=== PATIENT | female | born 1970 | race Caucasian/White ===

== ENCOUNTER 2019-12-18 19:14 | Emergency (ER) | payer MEDICARE, MEDICAID, SELFPAY ==
--- NOTE | 2019-12-18 19:19 | W.ED.GENAD ---
Discharge Plan Disposition Patient Disposition: HOME Condition: Good Discharge Details Chief Complaint: Orthopedic Clinical Impression: Acute knee pain Primary Care Provider: None,None ED Provider: Ayesha Snell Home Meds and New Rx's Prescriptions: No Action No Known Home Meds RF: 0 Discharge Instructions Instructions: Knee Pain (ED) Additional Instructions: Encourage rest, ice, elevation. Tylenol and/or ibuprofen as needed for discomfort. Your exam and history is most concerning for meniscal injury and you will need follow-up with orthopedics. Please call orthopedics on Saturday to schedule follow-up appointment. If he develop new or worsening symptoms please seek care urgently once again. Please continue with hinged knee brace to help with discomfort until evaluated by orthopedics. Referrals: eMd Valdez MD [ [facility] STAFF PHYSICIAN] - Medical Decision Making Patient is a pleasant 49-year-old female presents today with chief complaint of right knee pain. She reports that she has had pain like this historically. She reports that she had surgical intervention as a teenager. She reports that since that time, she has had intermittent catching and locking, particularly after squatting down. Indicates the anterior lateral aspect of the knee is area of discomfort. She reports that [place] when she scratched down and had sudden onset of discomfort. Since that time, she reports having difficulty with extension. She reports it has gotten better since the initial start. States that at times it can be difficult for her to ambulate on this secondary to the catching and locking. She denies any fall. Did not strike the knee. Denies other injury at the time of the incident. On exam, patient is resting comfortably. Exam the right lower extremity reveals normal-appearing joints. She does have limited range of motion of the right knee. She is lacking approximate 10 degrees of full extension, flexion is limited to approximate 65 degrees making Nicolas exam difficult. She is ligamentously intact without discomfort or laxity. She does have pain with palpation of the joint line of the anterior lateral aspect of the knee. She does have pain with axial loading with rotation in this area. History and exam is most concerning for meniscal injury. However, given the acute onset of discomfort and chronic problems, will obtain imaging. Will give Tylenol and ibuprofen for discomfort. FINDINGS: Bones/joints: Normal. Bony alignment is anatomic. No evidence for significant joint effusion. Soft tissues: Normal. IMPRESSION: No evidence for acute abnormality. Findings on the x-ray do correlate with my clinical exam. Her exam and history is most concerning for a lateral meniscal injury. Encourage rest, ice, elevation. Tylenol and ibuprofen as needed for discomfort. Advise follow-up with orthopedics, patient was given contact information. I advised hinged knee brace to help with discomfort and ensure stability. She was given return precautions. She will contact orthopedics on Saturday to schedule follow-up appointment. All of his questions and concerns were addressed and is in agreement this plan. HPI General Mode of arrival: ambulatory. Date/Time Provider Initiated Documentation: 12/18/19 19:19. Limitations to Documentation: no limitations. Information obtained by: patient and RN notes reviewed. History of Present Illness 49 year old F presents to the emergency department with the chief complaint of right knee pain, described as moderate, with intensity rated at 7. Quality is described as aching, and is localized to the right and lower extremity. Patient reports no radiation. Patient started experiencing this hour(s) (1) and it has been constant. Immobilization improves symptom(s), Movement worsens symptoms . Patient notes no other symptoms.. Patient did receive the following treatments prior to arrival, none Related Data Home Medications Medication Instructions Recorded Confirmed Unknown [No Known Home Meds] 12/18/19 12/18/19 Allergies Allergy/AdvReac Type Severity Reaction Status Date / Time No Known Allergies Allergy Unverified 12/18/19 19:24 Review of Systems Constitutional Constitutional: Reports as per HPI, Denies chills, Denies fever(s), Denies headache(s) and Denies weakness ENT Ears, Nose, Mouth, and Throat: Denies headache(s) Cardiovascular Cardiovascular: Reports as per HPI Respiratory Respiratory: Reports as per HPI and Denies cough Musculoskeletal Musculoskeletal: Reports as per HPI and Denies tingling Integumentary/Breasts Skin/Breast: Reports as per HPI, Denies rash and Denies wounds Neurologic Neurologic: Reports as per HPI, Denies headache(s), Denies tingling, Denies paresthesias and Denies weakness Exam Const General: cooperative, healthy appearing, comfortable, no acute distress, well developed and disheveled Nutritional Appearance: well nourished and overweight Orientation: alert and awake Resp Effort & Inspection: normal respiratory effort, able to speak in complete sentences and no respiratory distress Cardio Rate: regular rate Rhythm: regular rhythm Skin General skin exam: no rashes or lesions noted Lesions: no lesions Rashes: no rashes Trauma: no lacerations or abrasions Neuro General: patient alert and patient awake Cognition: normal cognition Speech: speech normal Gait: normal gait Motor: muscle tone normal throughout Sensory Exam: no sensory deficits noted Extrem Right lower extremity: normal to inspection, normal capillary refill, no joint enlargement, hip/thigh Details: normal to inspection and normal ROM; no tenderness and no swelling, knee Details: normal to inspection, tenderness Location: of the lateral joint line, knee ligament exam normal Details: anterior drawer test normal, posterior drawer test normal, valgus stress test normal, varus stress test normal and pain with axial loading and Nicolas's Test (Unable to perform secondary to discomfort); no swelling, ROM abnormal (Approximately 10 degrees of full extension, flexion to 65), no ecchymosis, no crepitus, no foreign bodies, no penetrating wound, no deformity and no unusual warmth, lower leg Details: normal to inspection and no edema; no erythema, no tenderness, no localized swelling and no palpable cords, ankle Details: normal to inspection and foot Details: normal capillary refill, normal to inspection and toes with normal ROM; no tenderness; ROM limited and no edema Psych Appearance: grossly normal and well kempt Mental Status: mental status grossly normal Speech and Movement: speech and movement normal
[2019-12-18 19:21] VITALS: BP 134/81; PULSE 93; RESP 20; TEMP 36.8; O2SAT 98
[2019-12-18] MEDS: Ibuprofen 600 MG TAB PO (19:45)
[2019-12-18] MEDS: Acetaminophen 500 MG TAB 1000 MG PO (19:45)
--- NOTE | 2019-12-18 20:00 | DI.RAD_ITS ---
EXAM: XR KNEE RT 4V AP,LAT,CARLOS,PAT CLINICAL HISTORY: lateral pain. TECHNIQUE: 2D digital imaging was performed. COMPARISON: No exams were available for comparison FINDINGS: BONES: No acute fracture is present. No bony destructive lesion is seen. JOINTS: The knee is normally aligned. No joint effusion is seen. SOFT TISSUE: Normal. IMPRESSION: Unremarkable radiographs of the right knee. DATA REPOSITORY: RADIATION DOSE DELIVERED:
--- NOTE | 2019-12-18 20:12 | DI.VRAD_ITS ---
PROCEDURE INFORMATION: Exam: XR Left Knee Exam date and time: 12/18/2019 7:53 PM Age: 49 years old Clinical indication: Pain; Knee; Right; Additional info: Patient states she bent over and when she stood back up felt severe knee pain. Unable to bear weight. TECHNIQUE: Imaging protocol: XR Left knee. Views: 4 or more views. COMPARISON: No relevant prior studies available. FINDINGS: Bones/joints: Normal. Bony alignment is anatomic. No evidence for significant joint effusion. Soft tissues: Normal. IMPRESSION: No evidence for acute abnormality. COMMENTS: Preliminary interpretation is based on receipt of 4 image(s). A final report will be issued subsequently. Dictated and Authenticated by: Martha Petersen MD. Ordering:JENNIFER Hodge MD
== END 2019-12-18 20:40 | disposition home or self-care (01) ==
PROVIDERS: Emergency Provider Physician Assistant
DX: M25.561 Pain in right knee (principal); X50.9XXA Other and unspecified overexertion or strenuous movements or postures, initial encounter
CPT/HCPCS: 29505; 99283; 73564; L1810

== ENCOUNTER 2020-01-06 09:12 | Outpatient (CLI) | payer MEDICARE, MEDICAID, SELFPAY ==
--- NOTE | 2020-01-06 08:45 | DI.RAD_ITS ---
EXAM: XR HIP PELVIS ADULT BL CLINICAL HISTORY: bilateral hip with pelvis TECHNIQUE: COMPARISON: No exams were available for comparison FINDINGS: Three views were obtained. There is soft tissue calcification adjacent to the superior aspect of the greater trochanter on the left which may represent peritendinitis or bursitis, please correlate clin ically. The cartilaginous joint spaces of both hips appear fairly well maintained. No significant bony abnor mality seen IMPRESSION:
== END 2020-01-06 09:32 ==
PROVIDERS: Referring Provider Physician Assistant; Visit Provider Student in an Organized Health Care Education/Training Program
DX: M25.552 Pain in left hip (principal); M70.72 Other bursitis of hip, left hip; S83.206A Unspecified tear of unspecified meniscus, current injury, right knee, initial encounter; X58.XXXA Exposure to other specified factors, initial encounter; E88.89 Other specified metabolic disorders; M22.41 Chondromalacia patellae, right knee
CPT/HCPCS: 73521; 99204; 99215

== ENCOUNTER 2020-01-08 03:43 | Outpatient (CLI) | payer MEDICARE, MEDICAID, SELFPAY ==
--- NOTE | 2020-01-08 10:45 | DI.MRI_ITS ---
EXAM: MR LOWER JOINT RT WO CLINICAL HISTORY: 30 years knee pain instability E88.89 METABOLIC DISORDER, S83.206A TEAR TECHNIQUE: Multiplanar multisequence MRI was performed.. COMPARISON: No exams were available for comparison FINDINGS: MR examination of the knee was performed according to the usual protocol. There is no significant bon y signal abnormality seen. The articular cartilage of the medial and lateral tibiofemoral joints appears within normal limits. Note is made of minimal signal change at the patellar apex, associated with overlying signal abnormal ity of the articular cartilage with slight surface irregularity of the cartilage. Trochlear cartilag e also shows mild surface irregularity period. No retinacular injury. Hoffa fat pad is unremarkable. Cruciate ligaments appear intact. Menisci and attachments appear normal with no evidence of tear. No collateral ligament injury or posterolateral corner abnormality seen. IMPRESSION: Mild articular cartilage changes of the patellofemoral joint particularly at the patellar apex. No e vidence of internal derangement. DATA REPOSITORY:
== END 2020-01-08 04:03 ==
PROVIDERS: Visit Provider Student in an Organized Health Care Education/Training Program
DX: M25.561 Pain in right knee (principal); M22.8X1 Other disorders of patella, right knee
CPT/HCPCS: 73721

== ENCOUNTER → 2020-01-19 13:37 | Outpatient (BNVA) | payer MEDICARE, MEDICAID, SELFPAY | PROVIDERS: Visit Provider Student in an Organized Health Care Education/Training Program | DX: M22.41 Chondromalacia patellae, right knee (principal); S83.206D Unspecified tear of unspecified meniscus, current injury, right knee, subsequent encounter; X58.XXXD Exposure to other specified factors, subsequent encounter; E88.89 Other specified metabolic disorders | CPT/HCPCS: 20610; 99214; J1030 ==

== ENCOUNTER → 2020-04-19 09:57 | Outpatient (BNVA) | payer MEDICARE, MEDICAID, SELFPAY | PROVIDERS: Visit Provider Student in an Organized Health Care Education/Training Program | DX: M22.41 Chondromalacia patellae, right knee (principal); M23.91 Unspecified internal derangement of right knee; S83.20 Tear of unspecified meniscus, current injury; E88.89 Other specified metabolic disorders | CPT/HCPCS: 99214 ==

== ENCOUNTER 2020-05-10 02:23 | Outpatient (CLI) | payer MEDICARE, MEDICAID, SELFPAY ==
[2020-05-12 12:39] LABS: Cotinine <3.0 ng/mL (<3.0); Nicotine <3.0 ng/mL (<3.0)
== END 2020-05-10 02:43 ==
PROVIDERS: Student in an Organized Health Care Education/Training Program; Visit Provider Audiologist
DX: M22.41 Chondromalacia patellae, right knee (principal)
CPT/HCPCS: 36415; 80323; U0003

== ENCOUNTER 2020-05-10 07:55 | Outpatient (CLI) | payer MEDICARE, MEDICAID, SELFPAY ==
[2020-05-14 13:18] LABS: COVID-19 RT-PCR Result Negative
== END 2020-05-10 08:15 ==
PROVIDERS: Visit Provider Student in an Organized Health Care Education/Training Program
DX: Z11.59 Encounter for screening for other viral diseases (principal); Z01.818 Encounter for other preprocedural examination; M22.41 Chondromalacia patellae, right knee
CPT/HCPCS: U0003

== ENCOUNTER 2020-05-13 06:15 | Day surgery (SDC) | payer MEDICARE, MEDICAID, SELFPAY ==
[2020-05-13] VITALS (8 sets, daily range): BP systolic 100–115; BP diastolic 47–60; PULSE 66–87; RESP 10–22; TEMP 36.5–36.6; O2SAT 95–99
[2020-05-13] MEDS: Lactated Ringers 1,000 ML 100 ML IV ×2 (06:57→08:13)
[2020-05-13] MEDS: ceFAZolin 2 GM/50 ML BAG IVPB (07:29)
[2020-05-13] MEDS: Bupivacaine 0.25% Pres-Free 30 ML VIAL (08:14)
[2020-05-13] MEDS: EPINEPHrine 30 MG/30 ML VIAL (08:15)
[2020-05-13] MEDS: fentaNYL 100 MCG/2 ML VIAL IVP ×2 (09:03→09:13)
--- NOTE | 2020-05-13 09:47 | W.PM.DSUDISC ---
Discharge Plan Disposition Patient Disposition: HOME Condition: Stable Discharge Details Reason For Visit: Right knee surgery Attending Provider: Venkata Mercado Primary Care Provider: None,None Home Meds and New Rx's Prescriptions: New aspirin 81 mg tablet,delayed release (DR/EC) 81 mg PO DAILY 14 Days Qty: 14 RF: 0 naproxen 250 mg tablet 250 - 500 mg PO BID PRN (Reason: Moderate pain or swelling) Qty: 60 RF: 0 oxycodone 5 mg tablet 5 - 10 mg PO Q4H PRN (Reason: moderate to severe pain) Qty: 9 RF: 0 Discharge Instructions Additional Instructions: Surgery: Right knee arthroscopy with partial lateral meniscectomy, synovectomy, and chondroplasty Activity: Advance to weightbearing as tolerated. Gradually increase range of motion to full. It is important to restore full knee extension?do not rest with pillows behind knee to prevent knee getting stuck bent. A physical therapy prescription will be provided separately in the office at follow-up if needed. Prescriptions: Aspirin 81 mg take 1 daily to prevent a blood clot for 2 weeks Naproxen 250 mg take 1-2 every 12 hours with a meal as needed for moderate pain Oxycodone 5 mg take 1-2 every 4-6 hours as needed for severe pain You may use [id number] Tylenol (acetaminophen) as needed for mild pain. These pain medications may be taken all at once or in different combinations as needed. Also, recommend Colace (docusate) as a stool softener as surgery and pain medicine cause constipation. Dressings: Leave dressing in place for 2-3 days. May then remove and leave Steri-Strips open to air or cover with Band-Aids. May shower after 5 days. Follow-up: 10-[address] Mercado Let us know right away if you develop any redness, drainage, fevers, chest pain, or trouble breathing. Do not drink alcohol or drive for at least 24 hours after anesthesia. Please call the office during business hours with any questions or concerns. Referrals: Venkata Mercado MD [ [facility] STAFF PHYSICIAN] - Discharge Orders Discharge Orders: Discharge Order (Routine); Ordered 05/13/20 Ordered By: Venkata Mercado DS: Diagnosis Discharge Diagnosis (1) Tear of cartilage of right knee: Status: Acute (2) Hoffa's fat pad disease: Status: Acute (3) Chondromalacia patellae of right knee: Status: Acute (4) Plica of knee: Status: Acute (5) Lateral meniscal tear: Status: Acute
--- NOTE | 2020-05-13 09:57 | ROE_ITS ---
Date of service: 05/13/20 Time of Service: 09:47 Operative Note Operative Note DATE OF PROCEDURE: 05/13/20 PRE-OP DIAGNOSIS: Right knee 1. Chondromalacia patella 2. Right knee cartilage lesion 3. Right knee Hoffa's fat pad syndrome POST-OP DIAGNOSIS: other Right knee 1. Chondromalacia patella 2. Cartilage lesion undersurface patella 3. Hoffa's fat pad syndrome 4. Lateral gutter plica 5. Posterior horn lateral meniscus tear PROCEDURE: Right knee: 1. Partial lateral meniscectomy, CPT #54309 2. Synovectomy greater than 2 compartments, CPT #77629: Anteromedial, anterolateral, lateral gutter, and patellofemoral 3. Chondroplasty, CPT #88571: Undersurface patella SURGEON: Venkata Mercado SUBSTATION DESIGN DRAFTSPERSON: Megha Herring ANESTHESIA: GETA and local ESTIMATED BLOOD LOSS: 3 PATHOLOGY: none sent TOURNIQUET TIME: 0 COMPLICATIONS: None Patient was transported to: PACU Patient's condition: stable Implants: None Indications: Please see complete medical record for details. Findings: Central to central superior undersurface patella grade 2-3 almost 1 x 1 cm partial thickness cartilage lesion. Intact trochlear cartilage. Intact lateral and femoral compartment articular surfaces. Intact medial meniscus, ACL, and PCL. Largely intact lateral meniscus with small amount of fraying tearing of the posterior horn. Lateral gutter plica. Procedure Description: In the operating room, general anesthesia was induced. The patient was positioned supine on the operating room table. All bony prominences were well-padded. Preoperative antibiotics were administered. The right knee was prepped and draped in the usual sterile fashion. The correct patient, procedure, and side of the procedure were all verified prior to incision. 10 cc of 0.5% bupivacaine containing epinephrine was infiltrated about the anterior medial and anterior lateral knee arthroscopy portals. The portals were established and a complete diagnostic arthroscopy was performed with relevant findings detailed above. Mechanical shaver was used to perform a synovectomy of the anteromedial, anterolateral compartments removing pathologic synovium. In the [id number] position lateral meniscus tear was then shaved to a stable margin at the posterior horn. Synovectomy was then proceeded in extension of the patellofemoral space of engaging synovitis about the cartilage lesion. Mechanical shaver was then used to smooth and perform a limited chondroplasty of fibrillations with some partial-thickness fissures of the undersurface patella cartilage lesion. Attention was then turned to the lateral gutter and the mechanical shaver was used to complete removal of the plical band. Under direct arthroscopic visualization an 18-gauge needle was passed into the knee from superior lateral. The knee was copiously irrigated with arthroscopic fluid for being drained of all fluid. The anteromedial anterolateral portals were closed in 3-0 Monocryl in a buried interrupted fashion. Mastisol, Steri-Strips, dry 4 x 4 gauze, and sterile soft roll wrapped about the knee. Prior to applying the dressing 20 cc of 0.25% bupivacaine containing 4 mg of morphine was infiltrated into the knee for postoperative analgesia. The right lower extremity was then wrapped in a gentle compressive Sushil bandage. The patient awoke from anesthesia without complication and was transferred to the recovery room in a stable condition.
== END 2020-05-13 10:21 | disposition home or self-care (01) ==
PROVIDERS: Visit Provider Student in an Organized Health Care Education/Training Program
PROC: (CPT 29870; principal; 2020-05-13 07:30)
DX: M22.41 Chondromalacia patellae, right knee (principal); M23.251 Derangement of posterior horn of lateral meniscus due to old tear or injury, right knee
CPT/HCPCS: 29876; 29881; J0690; J1100; J1885; J2001; J2250; J2405; J2704; J3010

== ENCOUNTER → 2020-05-24 10:26 | Outpatient (BNVA) | payer MEDICARE, MEDICAID, SELFPAY | PROVIDERS: Visit Provider Student in an Organized Health Care Education/Training Program | DX: Z47.89 Encounter for other orthopedic aftercare (principal); M23.200 Derangement of unspecified lateral meniscus due to old tear or injury, right knee; M67.51 Plica syndrome, right knee; E88.89 Other specified metabolic disorders ==

== ENCOUNTER → 2020-08-09 09:53 | Outpatient (BNVA) | payer MEDICARE, MEDICAID, SELFPAY | PROVIDERS: Visit Provider Student in an Organized Health Care Education/Training Program | DX: R69 Illness, unspecified (principal) ==

== ENCOUNTER → 2020-09-21 16:05 | Outpatient (BNVA) | payer MEDICARE, MEDICAID, SELFPAY | PROVIDERS: Visit Provider Student in an Organized Health Care Education/Training Program | DX: R69 Illness, unspecified (principal) ==

== ENCOUNTER → 2020-11-16 07:55 | Outpatient (BNVA) | payer MEDICARE, MEDICAID, SELFPAY | PROVIDERS: Visit Provider Student in an Organized Health Care Education/Training Program | DX: Z47.89 Encounter for other orthopedic aftercare (principal); M79.18 Myalgia, other site; M23.206 Derangement of unspecified meniscus due to old tear or injury, right knee | CPT/HCPCS: 99214 ==

== ENCOUNTER 2020-12-14 19:17 | Emergency (ER) | payer MEDICARE, MEDICAID, SELFPAY ==
[2020-12-14 19:28] VITALS: BP 107/59; PULSE 83; RESP 18; TEMP 37; O2SAT 96
--- NOTE | 2020-12-14 20:30 | DI.RAD_ITS ---
Exam(s) XR KNEE RT 3V AP,LAT,CARLOS EXAM: XR KNEE RT 3V AP,LAT,CARLOS CLINICAL HISTORY: R knee pain, r/o fx, effusion. TECHNIQUE: 2D digital imaging was performed. COMPARISON: CR,XR XR KNEE RT 4V AP,LAT,CARLOS,PAT from 12/18/2019 FINDINGS: BONES: No acute fracture is present. No bony destructive lesion is seen. JOINTS: The knee is normally aligned. No joint effusion is seen. SOFT TISSUE: Normal. IMPRESSION: Unremarkable radiographs of the right knee. DATA REPOSITORY: RADIATION DOSE DELIVERED:
--- NOTE | 2020-12-14 20:36 | W.ED.GENAD ---
Discharge Plan Disposition Patient Disposition: HOME Condition: Stable Discharge Details Clinical Impression: Right knee pain Primary Care Provider: None,None ED Provider: Yu Cam Home Meds and New Rx's Prescriptions: No Action No Known Home Meds RF: 0 Discharge Instructions Instructions: Knee Pain (ED) Additional Instructions: Rest, ice, and elevate the affected area as much as possible. Alternate tylenol and motrin as needed and directed for pain. Call Dr. Mercado's office tomorrow to schedule a follow-up appointment for reevaluation in the next week. Return immediately to the emergency department if you develop any worsening or new concerning symptoms. Referrals: Venkata Mercado MD [ [facility] STAFF PHYSICIAN] - Discharge Data Discharge Physician: Yu Cam Medical Decision Making 50-year-old female with a history of right knee arthroscopy with partial lateral meniscectomy, extensive synovectomy, and patella chondroplasty presents for right knee pain after sitting in [place] sitting in [place] style and standing up last night. She states she is unable to fully straighten her knee due to significant pain. Review of orthopedic notes from 11/16/20 note that patient was diagnosed with localized amplified musculoskeletal pain syndrome and referred to physical therapy and was noted to have pain out of proportion to exam. Patient is crying throughout exam. Her right knee appears normal to inspection without evidence of trauma, cellulitis or effusion. She has no pain with palpation. She has unable to fully extend the knee due to pain. Limited ligamentous exam due to pain but no obvious laxity. She has neurovascular intact. She was referred for right knee x-ray and given a dose of oxycodone. X-ray negative for acute findings. Patient reassessed and still complaining of right knee pain but feels good to go home. She is unable to fully extend due to pain. Will give one oxycodone to go for overnight tonight. She is advised to take Tylenol every 4 hours and ibuprofen every 6 hours for pain. An Sushil wrap was placed and she was given crutches as well as a hinged knee brace to go. Discussed that she likely will need to put her leg in extension to place a hinged knee. Advised to call Dr. Mercado's office tomorrow to schedule follow-up appointment for reevaluation for consideration for cortisone injection. Medical Records Medical records reviewed: Yes I reviewed the patient's medical records. Imaging Data Radiologic Study: Radiologist's impression: XR Right Knee Exam date and time: 12/14/2020 8:44 PM Age: 50 years old Clinical indication: Pain; Right; Patient HX: PT states her knee popped yesterday and she has been unable to bear weight or straighten it since TECHNIQUE: Imaging protocol: XR Right knee. Views: 3 views. COMPARISON: No relevant prior studies available. FINDINGS: Bones/joints: Normal. Soft tissues: Normal. IMPRESSION: No acute findings. HPI General Mode of arrival: wheelchair. Date/Time Provider Initiated Documentation: 12/14/20 19:53. Limitations to Documentation: no limitations. Information obtained by: patient. HPI Narrative: Patient is a 50-year-old female with a partial lateral meniscectomy, extensive synovectomy, and patella chondroplasty in April 2020 presents for right knee pain since standing up from sitting in [place] style last night. She states she has been unable to fully extend her knee due to pain. She states she has been unable to walk or weight-bear on her leg due to pain. She took Tylenol for pain today without relief. She states she can take ibuprofen. Patient states she is mainly here for pain medicine to get her through the night. She states I know nothing is broken. Related Data Home Medications Medication Instructions Recorded Confirmed Unknown [No Known Home Meds] 11/16/20 12/14/20 Allergies Allergy/AdvReac Type Severity Reaction Status Date / Time No Known Allergies Allergy Verified 12/14/20 19:33 General Stated Complaint: Orthopedic MARLENI: 4 Review of Systems All systems reviewed & are unremarkable except as noted in HPI and below [facility] Medical History (Updated 12/14/20 @ 22:01 by Yu Cam DO) Lateral meniscal tear Surgical History (Updated 05/13/20 @ 06:30 by Anabel Kellogg, VIRIDIANA) History of carpal tunnel release of both wrists History of cholecystectomy History of hysterectomy History of right knee surgery History of shoulder surgery L shoulder impingment surgery Social History Smoking/Tobacco Use Status: Former Tobacco Use Quit Date: 04/27/20 Smoking risk assessment performed?: Yes Alcohol Intake: never Drug use: Never Substance use type: does not use Current gender identity: female Do you feel safe at home: Yes Do you feel safe in your relationship?: Yes Exam Const General: cooperative, healthy appearing and no acute distress HENMT Head: normal to inspection Mouth: oral mucosae normal Eyes General: appearance normal, both eyes and all related structures Neck Neck: normal visual inspection Resp Effort & Inspection: normal respiratory effort and able to speak in complete sentences Cardio Rate: regular rate Skin General skin exam: no rashes or lesions noted Neuro General: patient alert, patient awake and patient oriented x3 Motor: muscle tone normal throughout Extrem Other: Holding right knee in 90 degrees flexion. Able to extend R knee 150 degrees but no further due to pain. No tenderness to palpation of anterior or posterior knee. Limited exam of valgus or varus stress, anterior posterior drawer test due to pain but no obvious ligamentous laxity. There is no erythema, edema, ecchymosis noted No pain with range of motion of right hip or ankle. Right DP/PT pulses intact. Psych Appearance: grossly normal Affect: normal affect Course Vital Signs Vital signs: Vital Signs Temperature 98.6 F 12/14/20 19:28 Pulse 83 12/14/20 19:28 Respiratory Rate 18 12/14/20 19:28 Blood Pressure 107/59 L 12/14/20 19:28 Pulse Oximetry 96 12/14/20 19:28 Temperature 98.6 F 12/14/20 19:28 Temperature Source Oral 12/14/20 19:28 Pulse 83 12/14/20 19:28 Respiratory Rate 18 12/14/20 19:28 Respiratory Effort Non-Labored 12/14/20 19:33 Blood Pressure 107/59 L 12/14/20 19:28 Blood Pressure Position Sitting 12/14/20 19:28 Pulse Oximetry 96 12/14/20 19:28 Oxygen Delivery Method Room Air 12/14/20 19:28 Oxygen Flow Rate 0 12/14/20 19:28 Pain Level 10 12/14/20 19:28
[2020-12-14] MEDS: oxyCODONE 5 MG TAB PO ×2 (20:49→22:23)
--- NOTE | 2020-12-14 21:52 | DI.VRAD_ITS ---
PROCEDURE INFORMATION: Exam: XR Right Knee Exam date and time: 12/14/2020 8:44 PM Age: 50 years old Clinical indication: Pain; Right; Patient HX: PT states her knee popped yesterday and she has been unable to bear weight or straighten it since TECHNIQUE: Imaging protocol: XR Right knee. Views: 3 views. COMPARISON: No relevant prior studies available. FINDINGS: Bones/joints: Normal. Soft tissues: Normal. IMPRESSION: No acute findings. Dictated and Authenticated by: Kala Davies MD. Ordering:WADE Nicholas MD
== END 2020-12-14 22:22 | disposition home or self-care (01) ==
PROVIDERS: Emergency Provider Physician Assistant
DX: M25.561 Pain in right knee (principal)
CPT/HCPCS: 73562; 99283

== ENCOUNTER → 2021-01-18 10:07 | Outpatient (BNVA) | payer MEDICARE, MEDICAID, SELFPAY | PROVIDERS: Visit Provider Student in an Organized Health Care Education/Training Program | DX: M25.461 Effusion, right knee (principal); M23.206 Derangement of unspecified meniscus due to old tear or injury, right knee; M22.41 Chondromalacia patellae, right knee; Z98.890 Other specified postprocedural states | CPT/HCPCS: 99214 ==

== ENCOUNTER 2021-01-20 01:38 | Outpatient (CLI) | payer MEDICARE, MEDICAID, SELFPAY ==
[2021-01-20 10:34] LABS: Abs Immature Grans 0.02 10^3/uL (0.0-0.06); Absolute Basophil Count 0.02 10^3/uL (0.0-0.2); Absolute Eosinophil Count 0.09 10^3/uL (0.0-0.7); Absolute Lymphocyte Count 2.27 10^3/uL (1.2-3.4); Absolute Monocyte Count 0.53 10^3/uL (0.1-0.8); Absolute Neutrophil Count 5.27 10^3/uL (1.2-6.7); Basophils % 0.2; Eosinophils % 1.1; HCT 42.1 % (36.0-46.0); HGB 13.9 g/dL (11.2-15.7); Immature Grans % 0.2; Lymphocytes % 27.7; MCH 29.3 pg (27.0-33.0); MCV 88.6 fL (80-95); MPV 10.7 fL (8.0-11.0); Monocytes % 6.5; Neutrophils % 64.3; Nucleated RBC 0 %; Platelet Count 202 10^3/uL (130-400); RBC 4.75 10^6/uL (3.93-5.22); RDW 12.9 % (11.7-14.6); RDW-SD 42.2 fL
[2021-01-20 10:37] LABS: ESR 4 mm/hr (0-20)
[2021-01-20 11:35] LABS: C-Reactive Protein 0.62 mg/dL (0.0-0.3)
[2021-01-20 16:26] LABS: Rheumatoid Factor <8.6 IU/mL (<12.0)
[2021-01-23 09:23] LABS: Cyclic Citrullinated Peptide <2.5 U/mL (<5.0)
[2021-01-23 10:40] LABS: Lyme Ab w Rflx to Lyme Confirm Negative (Negative)
[2021-01-23 15:17] LABS: ANA Interpretation Negative (Negative)
[2021-01-23 17:42] LABS: Anaplasma phagocytophilum Negative (Negative); B. miyamotoi PCR Negative (Negative); Babesia divergens/MO-1 Negative (Negative); Babesia duncani Negative (Negative); Babesia microti Negative (Negative); Ehrlichia chaffeensis Negative (Negative); Ehrlichia ewingii/canis Negative (Negative); Ehrlichia muris eauclairensis Negative (Negative)
== END 2021-01-20 01:39 | disposition home or self-care (01) ==
LOC: LBO 01:38
PROVIDERS: Visit Provider Student in an Organized Health Care Education/Training Program
DX: M25.461 Effusion, right knee (principal); M25.561 Pain in right knee; M23.206 Derangement of unspecified meniscus due to old tear or injury, right knee
CPT/HCPCS: 36415; 85652; 86200; 87798; 85025; 86038; 86140; 86431; 86618

== ENCOUNTER 2021-09-14 08:12 | Outpatient (CLI) | payer MEDICARE, MEDICAID, SELFPAY ==
--- NOTE | 2021-09-14 06:00 | DI.RAD_ITS ---
Exam(s) XR PAIN CLINIC FLUORO JOINT IN EXAM: XR PAIN CLINIC FLUORO JOINT IN CLINICAL HISTORY: Dx: Right Knee pain. TECHNIQUE: Fluoroscopy was provided for the referring physician for guidance with performing injecti on procedure. Five hard copy images. COMPARISON: No exams were available for comparison FINDINGS: Please see procedure note for details. Fluoro time: 44.4 seconds RADIATION DOSE DELIVERED: Sarair=2.18 mGy
[2021-09-14 08:21] VITALS: BP 131/78; PULSE 78; RESP 18; TEMP 36.9; O2SAT 97
--- NOTE | 2021-09-14 08:56 | PDOC.PAIN_ITS ---
Pain Clinic Procedure Note Procedure Note Procedure Note: RIGHT KNEE GENICULAR NERVE BLOCK Date of Service: September 14, 2021 Patient: Angelic Jacob Provider: Zachery Arnold DO, MPH Pre-operative diagnosis: Knee pain Post-operative diagnosis: Same Pre-procedure pain: VAS= 7/10 COMMENTS: She was referred for this by her orthopedic surgeon, Dr. Mercado. I reviewed his notes and the patient's x-rays. Angelic Jacob has been [facility] the [facility] for RIGHT genicular nerve block. Angelic was interviewed and the medical record reviewed. There were no medical, pharmacologic, radiographic or other structural contraindications to attempting fluoroscopically guided RIGHT genicular nerve block. Risks and potential side effects as well as potential benefit of the procedure were reviewed with Angelic , and HER voiced concerns were addressed. After I believed that the patient was completely informed, the printed consent form was signed. Standard time-out procedure was performed. Angelic was placed in the supine position on the fluoroscopy table and auto mated blood pressure cuff and pulse oximeter applied. The skin entry points for approaching RIGHT superolateral genicular nerve, the superomedial genicular nerve, the terminal branch of the nerve vastus intermedius and the inferomedial genicular was identified under the most advantageous fluoroscopic view and marked. Following thorough Chlorhexadine preparation of the skin and draping, 1% lidocaine infiltration of the skin entry point and subcutaneous tissues was accomplished using a 1.5 25G needle. Next, the 3.5 25G spinal needle was advanced to os at the location of the specific nerve root using fluoroscopic guidance. Next, 1 ml of 1% Lidocaine was injected at each site. The needles were removed without difficulty. Angelic's vital signs were stable throughout the procedure and were as recorded in the docflowsheet by the nursing staff. If given, dosages of intravenous drugs for anxiolysis and analgesia were documented in MAR. Follow up plans and appointments were discussed with the Angelic . Post procedure instruction was given as documented in nursing documentation and having met discharge criteria, Angelic was discharged from the [facility]. COMMENTS: No apparent complications. Post-procedure pain: VAS = 0/10. The patient will keep track of her RIGHT knee pain over the next four hours. If Angelic has sufficient pain relief, Angelic will be a candidate for radiofrequency ablation at the same nerves. Flaco WJ1, Segura SJ, Trae JG, Gaurav JG, Morel RIOS, Park PH, Lu JW. Radiofrequency treatment relieves chronic knee osteoarthritis pain: a double-blind randomized controlled trial. Pain. 2010;152(3):481-7. doi: 10.1016/j.pain.2010.09.029. Kristyn S1, Mahamed ON2, Mauro Y3, ?zl?rashawn P2, Akira U1, Gomez ?m?rl? I. Which one is more effective for the clinical treatment of chronic pain in knee osteoarthritis: radiofrequency neurotomy of the genicular nerves or intra- articular injection? Int J Rheum Dis. 2016 Feb 23. F/U with our office by phone to let us know the 1-4 hour post-procedure pain score. I personally performed this entire procedure. Zachery Arnold DO, MPH Attending Physician [facility]
[2021-09-14 09:04] VITALS: PULSE 78; O2SAT 100
[2021-09-14] MEDS: Omnipaque 240 MG/ML 50 ML BTL IJ (09:05)
[2021-09-14] MEDS: Bupivacaine 0.5% Pres-Free 10 ML VIAL IJ (09:05)
== END 2021-09-14 08:13 | disposition home or self-care (01) ==
LOC: PC 08:13
PROVIDERS: Visit Provider Preventive Medicine Occupational Medicine
DX: M25.561 Pain in right knee (principal)
CPT/HCPCS: 64454; 77002; Q9967

== ENCOUNTER → 2021-10-03 14:00 | Outpatient (BNVA) | payer MEDICARE, MEDICAID, SELFPAY | PROVIDERS: Visit Provider Student in an Organized Health Care Education/Training Program | DX: Z53.29 Procedure and treatment not carried out because of patient's decision for other reasons (principal) ==

== ENCOUNTER 2021-12-20 07:37 | Outpatient (CLI) | payer MEDICARE, MEDICAID, SELFPAY ==
--- NOTE | 2021-12-20 06:00 | DI.RAD_ITS ---
Exam(s) XR PAIN CLINIC FLUORO JOINT IN EXAM: XR PAIN CLINIC FLUORO JOINT IN CLINICAL HISTORY: DX: osteoarthritis of knee TECHNIQUE: 2D and realtime digital imaging was performed. Radiologist not present. CONTRAST MATERIAL: None. COMPARISON: No exams were available for comparison FINDINGS: Fluoroscopy was provided for pain management therapy. Please refer to procedure report or details. Total fluoroscopy time 58.2 seconds Cumulative dose: Ka,r=2.93 mGy IMPRESSION: RADIATION DOSE DELIVERED:
[2021-12-20 07:47] VITALS: BP 123/72; PULSE 67; RESP 14; TEMP 36.6; O2SAT 97
[2021-12-20] MEDS: Midazolam 2 MG/2 ML VIAL IVP (08:22)
[2021-12-20] MEDS: fentaNYL 100 MCG/2 ML VIAL IVP ×2 (08:22→08:36)
[2021-12-20] MEDS: Lactated Ringers 500 ML 80 ML IV (08:53)
[2021-12-20 08:55] VITALS: BP 136/71; PULSE 74; RESP 16; O2SAT 100
[2021-12-20] MEDS: Lidocaine 2% Multi-Dose 20 ML VIAL IJ (09:11)
[2021-12-20] MEDS: Bupivacaine 0.5% Pres-Free 30 ML VIAL IJ (09:11)
[2021-12-20] MEDS: methylPREDNISolone ACETATE 40 MG/ML VIAL IJ (09:12)
--- NOTE | 2021-12-20 09:52 | PDOC.PAIN_ITS ---
Pain Clinic Procedure Note Procedure Note Procedure Note: RIGHT GENICULAR NERVE RADIOFREQUENCY ABLATION WITH THE COOLIEF MACHINE Date of Service: December 20, 2021 Patient: Angelic Jacob Provider: Zachery Arnold DO, MPH Pre-operative diagnosis: Right knee osteoarthritis s/p TKA Post-operative diagnosis: Same Pre-procedure pain VAS 5/10. COMMENTS: Previous Genicular nerve block to the RIGHT knee on 09/14/21 with me. Angelic Jacob has been referred to the [facility] for RIGHT genicular nerve radiofrequency ablation. Angelic was interviewed and the medical record reviewed. There were no medical, pharmacologic, radiographic or other structural contraindications to attempting fluoroscopically guided RIGHT genicular nerve radiofrequency ablation. Risks and potential side effects as well as potential benefit of the procedure were reviewed with Angelic Jacob , and HER voiced concerns were addressed. After I believed that the patient was completely informed, the printed consent form was signed. Standard time-out procedure was performed. Angelic was placed in the supine position on the fluoroscopy table and automated blood pressure cuff and pulse oximeter applied. The skin entry points for approaching RIGHT superolateral genicular nerve, the superomedial genicular nerve and the inferomedial genicular was identified under the most advantageous fluoroscopic view and marked. Following thorough Chlorhexadine preparation of the skin and draping, 1% lidocaine infiltration of the skin entry point and subcutaneous tissues was accomplished using a 1.5 25G needle. Next, the 10 cm 18G RF Cannula with a 10 mm active tip was advanced to os at the location of the specific nerve roots (3) using fluoroscopic guidance. Next, sensory and motor testing was performed and no abnormal findings were found. Next, 1 cc of 2% Lidocaine was injected at each site. The lesion was then created with 80 degrees C for 90 seconds. Each needle was advance 1 cm and the lesion was completed again. Each cannula was advanced until the tip reached the posterior aspect of the bone shaft. 1/3 cc of Depomedrol (40 mg/cc) was then injected at each site followed by 2 cc of 0.5% Bupivacaine as the needle was withdrawn. The needles were removed without difficulty. Angelic's vital signs were stable throughout the procedure and were as recorded in the docflowsheet by the nursing staff. If given, dosages of intravenous drugs for anxiolysis and analgesia were documented in MAR. Follow up plans and appointments were discussed with the Angelic Jacob . Post procedure instruction was given as documented in nursing documentation and having met discharge criteria, Angelic was discharged from the [facility]. COMMENTS: No complications. Post-procedure pain VAS was 0/10. Flaco WJ1, Imelda SJ, Trae JG, Gaurav JG, Adriel RIOS, Alanis PH, Aly JW. Radiofrequency treatment relieves chronic knee osteoarthritis pain: a double-blind randomized controlled trial. Pain. 2011 Sep;152(3):481-7. doi: 10.1016/j.pain.2010.09.029. Kristyn S1, Mahamed ON2, Mauro Y3, ?zl?lerden P2, Akira U1, Gomez ?m?rl? I. Which one is more effective for the clinical treatment of chronic pain in knee osteoarthritis: radiofrequency neurotomy of the genicular nerves or intra- articular injection? Int J Rheum Dis. 2016 Feb 12. F/U with our office as need I personally performed this entire procedure. Zachery Arnold DO, MPH Attending Physician
== END 2021-12-20 07:38 | disposition home or self-care (01) ==
PROVIDERS: Visit Provider Preventive Medicine Occupational Medicine
DX: M17.11 Unilateral primary osteoarthritis, right knee (principal); M25.561 Pain in right knee
CPT/HCPCS: 64624; 77002; J1030; J2250; J3010; J3490

== ENCOUNTER 2022-03-03 18:11 | Emergency (ER) | payer MEDICARE, MEDICAID, SELFPAY ==
[2022-03-03] VITALS (24 sets, daily range): BP systolic 116–120; BP diastolic 61–95; PULSE 70–118; RESP 12–22; TEMP 37; O2SAT 94–98
--- NOTE | 2022-03-03 18:00 | RT.EKG_ITS ---
APPROVED REPORT Exam: Resting ECG Reason for Exam: chest pain Patient Location: E HR:83 bpm ECG Measurements Heart Rate 83 AXIS NM 136 P 65 QRSd 88 QRS 71 QT 370 T 36 QTc 434 Conclusion Sinus rhythm...normal P axis, V-rate 60- 99. Sinus. Normal axis. No STEMI. I have reviewed and interpreted ECG and agree with software generated interpretation.
--- NOTE | 2022-03-03 18:45 | DI.RAD_ITS ---
Exam(s) XR CHEST 2V PA LATERAL EXAM: XR CHEST 2V PA LATERAL CLINICAL HISTORY: L sided chest pain, r/o acute disease TECHNIQUE: 2D digital imaging was performed. COMPARISON: No exams were available for comparison FINDINGS: The heart is not enlarged. The lungs are clear and well expanded. No pleural effusion seen. Mediastin al contours appear intact. IMPRESSION: Normal chest. RADIATION DOSE DELIVERED: Total DLP
--- NOTE | 2022-03-03 18:55 | ED.GENADUL_ITS ---
Discharge Plan Disposition Patient Disposition: HOME Condition: Improving Discharge Details Clinical Impression: Chest wall pain Primary Care Provider: None,None ED Provider: Yu Cam Home Meds and New Rx's Prescriptions: Continued aripiprazole 20 mg tablet 1 tab PO DAILY bupropion HCl 150 mg tablet extended release 24 hr 1 tab PO DAILY Discharge Instructions Instructions: Chest Wall Pain (ED) Additional Instructions: Your lab work, EKG and imaging today is reassuring and shows no evidence of acute concerning or significant findings. It is suspected that your chest pain is likely muscular in origin and may respond to ice, heat and alternating Tylenol and Motrin as needed and directed. You can continue to try [id number] lidocaine patches as needed and directed. You can take the tramadol you were given for home for pain not relieved with Tylenol or motrin. Follow-up with your primary care doctor in 1 week. Return to the emergency department with any worsening or new concerning symptoms. Discharge Data Discharge Date/Time-TO BE ENTERED AT DEPARTURE: 03/03/22 21:02 Discharge Physician: Yu Cam Medical Decision Making 183 -- 51-year-old female with a history of hysterectomy presents to the ED with a complaint of intermittent episodes of left anterior inferior chest pain that started 2 hours ago while crocheting at home. She admits to several episodes having a pleuritic component and also being associated with full body tingling and dizziness. EKG on arrival notes a rate of 83, sinus, normal axis, no STEMI. Patient is hemodynamically stable and appears comfortable. She is noted to have 2 episodes of chest pain occurring during my evaluation in which she appeared uncomf ortable. Her left anterior inferior ribs are tender to palpation. Suspect most likely musculoskeletal etiology such as costochondritis. Considering her age and pleuritic component will obtain screening labs and D-dimer. We will place a Lidoderm patch and give Toradol and refer for x-ray. Due to the persistent episodes of chest pain, a repeat troponin and EKG has been ordered. 1950 --labs and imaging reviewed. Normal white blood cell count. Troponin negative. D-dimer within normal limits. Chest x-ray negative. Patient reassessed and she feels much better and would like to go home. Discussed with patient that her symptoms do appear musculoskeletal in etiology but due to her persistent nature of intermittent chest pain, a repeat troponin and ekg was ordered but patient is pleasantly declining to stay for these tests and feels better and would like to go home. Disposition decision made weighing the risks and benefits of hospitalization versus outpatient treatment, the risk for further decompensation, and the patient's wishes. Advised to follow up with the primary care doctor for re-evaluation. Usual and customary return precautions given prior to discharge. Medical Records Medical records reviewed: Yes I reviewed the patient's medical records. Lab Data Lab results reviewed: Yes I reviewed the patient's lab results. Labs: Laboratory Tests Range/Units 03/03/22 03/03/22 18:40 18:40 WBC (4.4-10.8) 10^3/uL 7.70 RBC (3.93-5.22) 10^6/uL 5.08 Hgb (11.2-15.7) g/dL 14.7 Hct (36.0-46.0) % 43.8 MCV (80-95) fL 86 MCH (27.0-33.0) pg 28.9 MCHC (32.0-36.0) % 33.6 RDW (11.7-14.6) % 12.5 Plt Count (130-400) 10^3/uL 237 MPV (8.0-11.0) fL 11.1 H Immature Gran % 0.3 Neutrophils % 61.8 Lymphocytes % 29.2 Monocytes % 6.9 Eosinophils % 1.4 Basophils % 0.4 Nucleated RBC % (0.0-0.3) % 0.0 Absolute Neutrophils (1.2-6.7) 10^3/uL 4.76 Absolute Lymphocytes (1.2-3.4) 10^3/uL 2.25 Absolute Monocytes (0.1-0.8) 10^3/uL 0.53 Absolute Eosinophils (0.0-0.7) 10^3/uL 0.11 Absolute Basophils (0.0-0.2) 10^3/uL 0.03 Sodium (136-145) mmol/L 142 Potassium (3.5-5.1) mmol/L 4.1 Chloride (98-107) mmol/L 105 Carbon Dioxide (21.0-32.0) mmol/L 29.8 Anion Gap (3-11) mmol/L 7.2 BUN (7-18) mg/dL 12 Creatinine (0.55-1.02) mg/dL 1.1 H Estimated GFR/1.73 m2 (mL/min/1.73m2) 52.79 Glucose (74-106) mg/dL 104 Calcium (8.5-10.1) mg/dL 9.2 Magnesium (1.8-2.4) mg/dL 2.1 Total Bilirubin (0.2-1.0) mg/dL 0.2 AST (15-37) U/L 12 L ALT (14-59) U/L 19 Alkaline Phosphatase (46-116) U/L 128 H Troponin I (<or=60) ng/L < 50 Total Protein (6.4-8.2) g/dL 7.4 Albumin (3.4-5.0) g/dL 3.9 ECG Data Attestation: I personally reviewed and interpreted this ECG (s) as follows: Interpretation: rate of 83, sinus, normal axis, no STEMI. No significant change compared to previous EKG. HPI General Mode of arrival: ambulatory . Date/Time Provider Initiated Documentation: 03/03/22 18:12 . Limitations to Documentation: no limitations . Information obtained by: patient . HPI Narrative: Pt is a 51yo F who presents to the ED with a complaint of left sided lower chest pain under her left breast that started 2 hours ago while sitting at home. Patient states she was crocheting when her pain started. She states since then she has had several episodes was last about 1 minute and then resolved. She states the pain radiates from her left lower anterior ribs and radiates to her right lower anterior ribs. She states with several of the episodes at home she developed tingling and dizziness. She states the pain at home was also worse with deep breaths. She admits to 2 episodes of chest pain that occurred while here in the emergency department but denies any tingling or dizziness with these. She also denies any pleuritic chest pain here. She denies any fever, cough, nausea, vomiting, recent travel, recent surgery, leg pain or swelling. She has not take any medication for pain. She denies any recent injury. Related Data Home Medications Medication Instructions Recorded Confirmed aripiprazole 20 mg tablet 1 tab PO DAILY 03/03/22 03/03/22 bupropion HCl 150 mg 24 hr tablet, 1 tab PO DAILY 03/03/22 03/03/22 extended release Allergies Allergy/AdvReac Type Severity Reaction Status Date / Time No Known Allergies Allergy Verified 12/20/21 07:46 General Stated Complaint: Chest Pain MARLENI: 2 Review of Systems All systems reviewed & are unremarkable except as noted in HPI and below Constitutional Constitutional: Denies chills, Denies excessive sweating, Denies fatigue, Denies fever(s), Denies weakness and Denies weight loss Eyes Eyes: Reports system reviewed and no additional complaints, except as documented and Denies blurry vision ENT Ears, Nose, Mouth, and Throat: Denies vertigo, Reports dizziness, Denies otalgia, Denies nasal congestion, Denies sore throat and Denies throat swelling Cardiovascular Cardiovascular: Reports chest pain, Denies syncope, Denies rapid heart rate and Denies dyspnea Respiratory Respiratory: Denies chest congestion, Denies cough, Denies pain on inspiration and Denies dyspnea Gastrointestinal Gastrointestinal: Denies abdominal pain, Denies diarrhea and Denies vomiting Genitourinary Genitourinary: Denies hematuria, Denies dysuria and Denies flank pain Musculoskeletal Musculoskeletal: Denies back pain, Denies joint swelling and Reports tingling Integumentary/Breasts Skin/Breast: Denies lesions and Denies rash Neurologic Neurologic: Denies behavioral changes, Denies confusion, Denies vertigo, Reports dizziness, Denies syncope, Denies localized weakness, Reports tingling and Denies weakness Psychiatric Psychiatric: Denies behavioral changes, Denies confusion and Denies depression Endocrine Endocrine: Denies excessive sweating and Denies fatigue Hematologic/Lymphatic Hematologic/Lymphatic: Denies easy bruising and Denies lymphadenopathy Allergic/Immunologic Allergic/Immunologic: Denies throat swelling PFSH All Active Problems (Updated 03/03/22 @ 19:32 by Yu Cam DO) Chest wall pain (Acute) Effusion of knee joint right (Acute) 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 No-show for appointment (Acute) Chondromalacia patellae of right knee (Acute) Medical History (Updated 03/03/22 @ 19:32 by Yu Cam DO) Hoffa's fat pad disease Lateral meniscal tear Plica of knee Tear of cartilage of right knee Surgical History History of carpal tunnel release of both wrists History of cholecystectomy History of hysterectomy History of right knee surgery History of shoulder surgery L shoulder impingment surgery Social History Smoking/Tobacco Use Status: Former Tobacco Use Quit Date: 04/27/20 Smoking risk assessment performed?: Yes Alcohol Intake: never Drug use: Never Substance use type: does not use Current gender identity: female Do you feel safe at home: Yes Do you feel safe in your relationship?: Yes Exam Const General: cooperative and uncomfortable (at times when pain occurs) Orientation: alert, awake and oriented x3 HENMT Head: normal to inspection Ears: hearing grossly normal bilaterally and external ears normal General nose exam: external nose normal Face and sinus: normal facial exam Mouth: oral mucosae normal Eyes General: appearance normal, both eyes and all related structures Eyelids: eyelids normal Pupils: PERRL EOM: EOM intact bilaterally Neck Neck: normal visual inspection Lymphatic: no lymphadenopathy noted Chest Chest: normal inspection of the chest Chest/axillae images: 1. Tenderness to palpation left anterior inferior medial ribs. There is no crepitus, erythema, edema, ecchymoses, rash or lesions. Resp Effort & Inspection: normal respiratory effort and able to speak in complete sentences Auscultation: clear to auscultation bilaterally Cardio Rate: regular rate Rhythm: regular rhythm GI Inspection: normal to inspection Palpation: soft, not firm, no guarding, no hepatosplenomegaly, no masses and nontender Auscultation: hypoactive bowel sounds Skin General skin exam: no rashes or lesions noted Neuro General: patient alert and patient awake Cognition: normal cognition Speech: speech normal Gait: normal gait Motor: muscle tone normal throughout Sensory Exam: no sensory deficits noted Extrem General: normal to inspection, full ROM and capillary refill normal Psych Appearance: grossly normal Mental Status: mental status grossly normal Speech and Movement: speech and movement normal Affect: normal affect Thought Process: normal Course Vital Signs Vital signs: Vital Signs Temperature 98.6 F 03/03/22 18:15 Pulse 98 H 03/03/22 18:15 Respiratory Rate 18 03/03/22 18:15 Blood Pressure 117/67 03/03/22 18:15 Pulse Oximetry 98 03/03/22 18:15 Temperature 98.6 F 03/03/22 18:15 Temperature Source Temporal Artery Scan 03/03/22 18:15 Pulse 98 H 03/03/22 18:15 Respiratory Rate 18 03/03/22 18:36 Respiratory Effort Non-Labored 03/03/22 18:36 Respiratory Depth Normal 03/03/22 18:36 Respiratory Pattern Normal 03/03/22 18:36 Blood Pressure 117/67 03/03/22 18:15 Blood Pressure Position Sitting 03/03/22 18:15 Pulse Oximetry 98 03/03/22 18:15 Oxygen Delivery Method Room Air 03/03/22 18:15 Oxygen Flow Rate 0 03/03/22 18:15 Pain Level 6 03/03/22 18:15
[2022-03-03 19:11] LABS: Abs Immature Grans 0.02 10^3/uL (0.0-0.06); Absolute Basophil Count 0.03 10^3/uL (0.0-0.2); Absolute Eosinophil Count 0.11 10^3/uL (0.0-0.7); Absolute Lymphocyte Count 2.25 10^3/uL (1.2-3.4); Absolute Monocyte Count 0.53 10^3/uL (0.1-0.8); Absolute Neutrophil Count 4.76 10^3/uL (1.2-6.7); Basophils % 0.4; Eosinophils % 1.4; HCT 43.8 % (36.0-46.0); HGB 14.7 g/dL (11.2-15.7); Immature Grans % 0.3; Lymphocytes % 29.2; MCH 28.9 pg (27.0-33.0); MCHC 33.6 % (32.0-36.0); MCV 86 fL (80-95); MPV 11.1 fL (8.0-11.0); Monocytes % 6.9; Neutrophils % 61.8; Platelet Count 237 10^3/uL (130-400); RBC 5.08 10^6/uL (3.93-5.22); RDW 12.5 % (11.7-14.6); RDW-SD 39.8 fL
[2022-03-03] MEDS: Lidocaine 5% Patch 1 PATCH TP (19:13)
[2022-03-03] MEDS: Ketorolac 30 MG/ML VIAL IVP (19:13)
[2022-03-03] MEDS: Normal Saline 1,000 ML 1000 ML IV (19:13)
[2022-03-03 19:31] LABS: ALT 19 U/L (14-59); AST 12 U/L (15-37); Albumin 3.9 g/dL (3.4-5.0); Alkaline Phosphatase 128 U/L (46-116); Anion Gap 7.2 mmol/L (3-11); BUN 12 mg/dL (7-18); Bilirubin, Total 0.2 mg/dL (0.2-1.0); CO2 29.8 mmol/L (21.0-32.0); CREATININE 1.1 mg/dL (0.55-1.02); Calcium 9.2 mg/dL (8.5-10.1); Chloride 105 mmol/L (98-107); Estimated GFR 52.79 (mL/min/1.73m2); Glucose 104 mg/dL (74-106); Magnesium 2.1 mg/dL (1.8-2.4); Potassium 4.1 mmol/L (3.5-5.1); Sodium 142 mmol/L (136-145); Total Protein 7.4 g/dL (6.4-8.2); Troponin I < 50 ng/L (<or=60)
[2022-03-03 19:58] LABS: D-Dimer 355 ng/mlFEU (<500)
--- NOTE | 2022-03-03 20:10 | DI.VRAD_ITS ---
PROCEDURE INFORMATION: Exam: XR Chest Exam date and time: 03/03/2022 7:40 PM Age: 51 years old Clinical indication: Pain; Chest pressure TECHNIQUE: Imaging protocol: Radiologic exam of the chest. Views: 2 views. COMPARISON: No relevant prior studies available. FINDINGS: Lungs: Lungs are adequately inflated and symmetric. No focal consolidation or pulmonary edema. Pleural spaces: No pleural effusion. No pneumothorax. Heart/Mediastinum: Cardiomediastinal contours within normal limits. Diaphragm: Asymmetric elevation of the right hemidiaphragm. Bones/joints: Mild multilevel thoracic spondylosis. No acute osseous finding. Organs: Cholecystectomy clips are in place. IMPRESSION: No acute cardiopulmonary finding. Dictated and Authenticated by: Pablo Hugo MD. Ordering:WADE Nicholas MD
[2022-03-03] MEDS: traMADol 50 MG TAB PO (20:49)
== END 2022-03-03 21:02 | disposition home or self-care (01) ==
PROVIDERS: Emergency Provider Physician Assistant
DX: R07.89 Other chest pain (principal); Z87.891 Personal history of nicotine dependence
CPT/HCPCS: 36415; 80053; 93005; 96361; 96374; 99284; 71046; 83735; 84484; 85025; 85379; 93010; 99285; J1885

== ENCOUNTER 2022-04-03 08:31 | Outpatient (CLI) | payer MEDICARE, MEDICAID, SELFPAY ==
--- NOTE | 2022-04-03 08:15 | DI.RAD_ITS ---
Exam(s) XR KNEE RT 3V AP,LAT,CARLOS EXAM: XR KNEE RT 3V AP,LAT,CARLOS CLINICAL HISTORY: R knee pain. TECHNIQUE: 2D digital imaging was performed. COMPARISON: CR,XR XR KNEE RT 3V AP,LAT,CARLOS from 12/14/2020 FINDINGS: 3 views There is no evidence of fracture or joint effusion. No osseous lesions. No degenerative changes. N o joint space narrowing. No osteophytes. Bone density is normal. No significant osseous lesions. IMPRESSION: No significant findings. DATA REPOSITORY: RADIATION DOSE DELIVERED:
== END 2022-04-03 08:32 | disposition home or self-care (01) ==
LOC: DIORS 08:32
PROVIDERS: Visit Provider Physician Assistant
DX: M22.41 Chondromalacia patellae, right knee (principal); M23.91 Unspecified internal derangement of right knee
CPT/HCPCS: 73562; 99214

== ENCOUNTER → 2022-04-24 01:22 | Outpatient (CLI) | payer MEDICARE, MEDICAID, SELFPAY ==
--- NOTE | 2022-04-24 06:30 | DI.MRI_ITS ---
Exam(s) MR LOWER JOINT RT WO EXAM: MR LOWER JOINT RT WO CLINICAL HISTORY: R KNEE PAIN,internal derangement, chondromalacia patella,m22.41,m23.91. TECHNIQUE: Multiplanar multisequence MRI was performed. COMPARISON: MR MR LOWER JOINT RT WO from 01/08/2020 CR XR KNEE RT 3V AP,LAT,CARLOS from 04/03/2022 FINDINGS: BONES: There is no fracture or contusion pattern. JOINTS: There is thinning of the articular cartilage overlying the inferior patella with hyperintense signal seen in the surrounding cartilage and adjacent subchondral bone of the patella. There is irr egularity of the articular surface of the patella. This has progressed since the prior examination. No effusion is present. The articular cartilage is otherwise unremarkable. TENDONS: Extensor mechanism: Unremarkable. Medial retinaculum: Unremarkable. Lateral retinaculum: Unremarkable. Popliteus: Unremarkable. MUSCLES: Unremarkable. MENISCI: There is no evidence of a medial meniscal tear. There is no evidence of a lateral meniscal tear. SOFT TISSUES: Unremarkable. LIGAMENTS: Anterior Cruciate: Unremarkable. Posterior Cruciate: Unremarkable. Medial Collateral:Unremarkable. Lateral Collateral: Unremarkable. OTHER: IMPRESSION: 1. Grade 4 chondromalacia patella with irregularity of the articular surface suggesting patellofemora l arthrosis. 2. No evidence of a meniscal or ligament tear. DATA REPOSITORY:
== END ==
PROVIDERS: Visit Provider Student in an Organized Health Care Education/Training Program
DX: M22.41 Chondromalacia patellae, right knee (principal)
CPT/HCPCS: 73721

== ENCOUNTER → 2022-05-01 09:10 | Outpatient (BNVA) | payer MEDICARE, MEDICAID, SELFPAY | PROVIDERS: Visit Provider Student in an Organized Health Care Education/Training Program | DX: M22.41 Chondromalacia patellae, right knee (principal) | CPT/HCPCS: 20610; 99214; J1040 ==

== ENCOUNTER 2022-06-26 09:42 | Emergency (ER) | payer MEDICARE, MEDICAID, SELFPAY ==
[2022-06-26 09:54] VITALS: BP 112/80; PULSE 100; RESP 24; TEMP 36.9; O2SAT 98
--- NOTE | 2022-06-26 10:30 | DI.RAD_ITS ---
Exam(s) XR PORTABLE CHEST AP EXAM: XR PORTABLE CHEST AP CLINICAL HISTORY: cough TECHNIQUE: 2D digital imaging was performed of the chest. Two images were obtained. AP views were obtained. COMPARISON: CR,XR XR CHEST 2V PA LATERAL from 03/03/2022 FINDINGS: MEDIASTINUM: Normal. HEART: Normal. PULMONARY VASCULATURE: Normal. LUNGS: Clear. PLEURAL SPACE: No pleural effusion or pneumothorax. BONE:Within normal limits for the patient's age. OTHER FINDINGS:Normal. IMPRESSION: No acute pulmonary findings. DATA REPOSITORY: RADIATION DOSE DELIVERED:
--- NOTE | 2022-06-26 10:30 | ED.GENADUL_ITS ---
Discharge Plan Disposition Patient Disposition: Home Condition: Stable Discharge Details Clinical Impression: Influenza, Cough Primary Care Provider: None,None ED Provider: Hank Lala Home Meds and New Rx's Prescriptions: New oseltamivir 75 mg capsule 75 mg PO Q12H 5 Days Qty: 10 0RF Continued aripiprazole 20 mg tablet 1 tab PO DAILY bupropion HCl 150 mg tablet extended release 24 hr 1 tab PO DAILY Discharge Instructions Instructions: Influenza (ED) Additional Instructions: you tested positive for the flu if not improving in 3-4 days follow up with your primary care provider if you feel more ill, have worsening trouble breathing or persistent vomiting return to the emergency department Medical Decision Making 51 yo female with no significant medical history who denies smoking or drug use comes in with chief complaint of cough for 3-4 days. She also has had a fever to 102 per patient intermittently. She denies abdominal pain, vomiting, chest pain/pressure. She has no neck stiffness. She has had a sore throat as well. She arrives stable speaking in full sentences in no distress. She has a mild frontal headache today per patient. She has erythema of the posterior pharynx, midline uvula, no pain over the hyoid, no restricted neck movements. She is swallowing and breathing normally. She hasclear lung sounds, no murmurs, soft nontender abdomen. Given her cough with fever will obtain cbc, cmp, fluvid and cxr. 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 Will obtain strep test as well, has no findings to suggest retropharyngeal abscess, peritonsilar abscess or epiglotitis. xray unremarkable, labs unremarkable other than she is positive for flu. She remains stable, no hypoxia, tolerating po. She is stable for d/c, will start on tamiflu, advised to f/u with pcp, return precautions given Differential Diagnosis Differential Diagnosis: uri, flu, pneumonia Imaging Data Radiologic Study: Attestation: I personally reviewed and interpreted this imaging study as follows: Imaging: X-Ray My impression: no acute findings Lab Data Lab results reviewed: Yes I reviewed the patient's lab results. Sign Out No HPI General Mode of arrival: ambulatory . Date/Time Provider Initiated Documentation: 06/26/22 09:45 . Limitations to Documentation: no limitations . Information obtained by: patient . History of Present Illness 51 year old F presents to the emergency department with the chief complaint of cough, described as moderate, Quality is described as aching, Patient reports no radiation. Patient started experiencing this day(s) (3) and it has been intermittent. No relieving factors improve symptom(s), No exacerbating factors reported . Patient notes fever/chills. Patient did receive the following treatments prior to arrival, none Related Data Home Medications Medication Instructions Recorded Confirmed aripiprazole 20 mg tablet 1 tab PO DAILY 03/03/22 06/26/22 bupropion HCl 150 mg 24 hr tablet, 1 tab PO DAILY 03/03/22 06/26/22 extended release oseltamivir 75 mg capsule 75 mg PO Q12H 5 days #10 caps 06/26/22 Previous Rx's Medication Instructions Recorded oseltamivir 75 mg capsule 75 mg PO Q12H 5 days #10 caps 06/26/22 Allergies Allergy/AdvReac Type Severity Reaction Status Date / Time No Known Allergies Allergy Verified 06/26/22 09:58 General Stated Complaint: RespSymp MARLENI: 3 Review of Systems All systems reviewed & are unremarkable except as noted in HPI and below Constitutional Constitutional: Denies chills Cardiovascular Cardiovascular: Denies chest pain and Denies dyspnea Respiratory Respiratory: Denies dyspnea Gastrointestinal Gastrointestinal: Denies abdominal pain and Denies vomiting Genitourinary Genitourinary: Denies dysuria Integumentary/Breasts Skin/Breast: Denies rash PFSH All Active Problems (Updated 06/26/22 @ 12:08 by Hank Lala MD) Influenza (Acute) Cough (Acute) Internal derangement of right knee (Acute) Effusion of knee joint right (Acute) 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 No-show for appointment (Acute) Chondromalacia patellae of right knee (Acute) Medical History (Updated 06/26/22 @ 12:08 by Hank Lala MD) Hoffa's fat pad disease Lateral meniscal tear Plica of knee Tear of cartilage of right knee Surgical History History of carpal tunnel release of both wrists History of cholecystectomy History of hysterectomy History of right knee surgery History of shoulder surgery L shoulder impingment surgery Social History Smoking/Tobacco Use Status: Former Tobacco Use Quit Date: 04/27/20 Smoking risk assessment performed?: Yes Alcohol Intake: never Drug use: Never Substance use type: does not use Current gender identity: female Do you feel safe at home: Yes Do you feel safe in your relationship?: Yes Exam Const General: no acute distress Orientation: alert HENPR Head: normal to inspection Ears: external ears normal General nose exam: external nose normal Mouth: moist mucous membranes Eyes General: appearance normal, both eyes and all related structures Neck Neck: normal visual inspection Resp Effort & Inspection: normal respiratory effort, able to speak in complete sentences, no audible wheezes and cough Auscultation: clear to auscultation bilaterally Cardio Rate: regular rate Heart Sounds: no murmurs GI Palpation: soft and nontender Skin General skin exam: no rashes or lesions noted Neuro General: patient alert and patient oriented x3 Extrem General: normal to inspection Psych Mental Status: mental status grossly normal Course Vital Signs Vital signs: Vital Signs Temperature 36.9 C 06/26/22 09:54 Pulse 100 H 06/26/22 09:54 Respiratory Rate 24 06/26/22 09:54 Blood Pressure 112/80 06/26/22 09:54 Pulse Oximetry 98 06/26/22 09:54 Temperature 36.9 C 06/26/22 09:54 Temperature Source Oral 06/26/22 09:54 Pulse 100 H 06/26/22 09:54 Respiratory Rate 24 06/26/22 09:54 Respiratory Effort Incrsd Work of Breathing 06/26/22 09:59 Respiratory Depth Normal 06/26/22 09:59 Blood Pressure 112/80 06/26/22 09:54 Blood Pressure Position Sitting 06/26/22 09:54 Pulse Oximetry 98 06/26/22 09:54 Pain Level 6 06/26/22 09:54
[2022-06-26 10:48] LABS: COVID-19 PCR Negative (Negative); Influenza A PCR Positive (Negative); Influenza B PCR Negative (Negative); RSV PCR Negative (Negative)
[2022-06-26 10:50] LABS: Source Nasopharynx
[2022-06-26] MEDS: Normal Saline 1,000 ML 1000 ML IV (11:00)
[2022-06-26 11:01] LABS: Abs Immature Grans 0.03 10^3/uL (0.0-0.06); Absolute Basophil Count 0.02 10^3/uL (0.0-0.2); Absolute Eosinophil Count 0.03 10^3/uL (0.0-0.7); Absolute Lymphocyte Count 0.77 10^3/uL (1.2-3.4); Absolute Monocyte Count 0.95 10^3/uL (0.1-0.8); Absolute Neutrophil Count 6.62 10^3/uL (1.2-6.7); Basophils % 0.2; Eosinophils % 0.4; HCT 38.8 % (36.0-46.0); HGB 12.7 g/dL (11.2-15.7); Immature Grans % 0.4; Lymphocytes % 9.1; MCH 28.5 pg (27.0-33.0); MCHC 32.7 % (32.0-36.0); MCV 87 fL (80-95); MPV 10.9 fL (8.0-11.0); Monocytes % 11.3; Neutrophils % 78.6; Platelet Count 178 10^3/uL (130-400); RBC 4.46 10^6/uL (3.93-5.22); RDW 13.5 % (11.7-14.6); RDW-SD 42.6 fL; WBC 8.42 10^3/uL (4.4-10.8)
[2022-06-26] MEDS: Ketorolac 15 MG/ML VIAL IVP (11:01)
[2022-06-26 11:19] LABS: ALT 15 U/L (14-59); AST 19 U/L (15-37); Albumin 3.4 g/dL (3.4-5.0); Alkaline Phosphatase 122 U/L (46-116); Anion Gap 7.3 mmol/L (3-11); BUN 9 mg/dL (7-18); Bilirubin, Total 0.3 mg/dL (0.2-1.0); CO2 28.7 mmol/L (21.0-32.0); CREATININE 1.2 mg/dL (0.55-1.02); Calcium 8.8 mg/dL (8.5-10.1); Chloride 99 mmol/L (98-107); Estimated GFR 55.49 (mL/min/1.73m2); Glucose 91 mg/dL (74-106); Magnesium 2.2 mg/dL (1.8-2.4); Potassium 3.9 mmol/L (3.5-5.1); Sodium 135 mmol/L (136-145); Total Protein 7.2 g/dL (6.4-8.2)
[2022-06-26 11:57] VITALS: BP 106/58; PULSE 85; RESP 19; TEMP 36.9; O2SAT 100
[2022-06-26 12:11] VITALS: BP 118/67; PULSE 83; TEMP 37.4; O2SAT 99
== END 2022-06-26 12:15 | disposition home or self-care (01) ==
PROVIDERS: Emergency Provider Emergency Medicine
DX: J10.1 Influenza due to other identified influenza virus with other respiratory manifestations (principal); Z20.822 Contact with and (suspected) exposure to COVID-19
CPT/HCPCS: 36415; 80053; 87637; 87880; 96361; 96374; 99284; 71045; 83735; 85025; 87081; J1885

== ENCOUNTER → 2022-07-03 08:42 | Outpatient (BNVA) | payer MEDICARE, MEDICAID, SELFPAY | PROVIDERS: Visit Provider Student in an Organized Health Care Education/Training Program | DX: M17.11 Unilateral primary osteoarthritis, right knee (principal) | CPT/HCPCS: 99213 ==

== ENCOUNTER → 2022-08-27 09:12 | Outpatient (BNVA) | payer MEDICARE, MEDICAID, SELFPAY | PROVIDERS: Visit Provider Student in an Organized Health Care Education/Training Program | DX: M17.11 Unilateral primary osteoarthritis, right knee (principal) | CPT/HCPCS: 99213 ==

== ENCOUNTER → 2022-09-12 13:17 | Outpatient (BNVA) | payer MEDICARE, MEDICAID, SELFPAY | PROVIDERS: Visit Provider Physician Assistant | DX: Z01.818 Encounter for other preprocedural examination (principal); M17.11 Unilateral primary osteoarthritis, right knee ==

== ENCOUNTER 2022-09-26 07:02 | Day surgery (SDC) | payer MEDICARE, MEDICAID, SELFPAY ==
[2022-09-26] VITALS (10 sets, daily range): BP systolic 114–143; BP diastolic 63–82; PULSE 70–87; RESP 13–19; TEMP 36.1–36.7; O2SAT 96–100; BMI 31.6
[2022-09-26] MEDS: Lactated Ringers 1,000 ML 80 ML IV (07:41)
[2022-09-26] MEDS: Acetaminophen 500 MG TAB 1000 MG PO (07:44)
[2022-09-26] MEDS: Celecoxib 200 MG CAP 400 MG PO (07:45)
[2022-09-26] MEDS: Gabapentin 300 MG CAP PO (07:45)
--- NOTE | 2022-09-26 07:56 | W.ANESPRE ---
General Info Date of Service Date Performed: 09/26/22 Height: 5 ft 5 in Weight: 86.1 kg Body Mass Index (BMI): 31.6 Surgical Procedure: Operation Date: 09/26/22 10:00 Proposed Procedure Side Surgeon p Knee Patellofemoral Replacement, ArthroSurface Right Med Valdez MD Meds Allergies and Home Medications Allergies Allergy/AdvReac Type Severity Reaction Status Date / Time No Known Allergies Allergy Verified 09/26/22 07:14 Home Medication Medication Instructions Recorded aripiprazole 20 mg tablet 1 tab PO DAILY 03/03/22 bupropion HCl 150 mg 24 hr tablet, 1 tab PO DAILY 03/03/22 extended release Current Visit Medications: Current Medications Generic Name Dose Route Start Last Admin Trade Name Freq PRN Reason Stop Dose Admin Acetaminophen 1,000 mg 09/26/22 06:00 09/26/22 07:44 Acetaminophen 500 Mg Tab PO 09/26/22 16:00 1,000 mg PREOP LAYLA Administration Celecoxib 400 mg 09/26/22 06:00 09/26/22 07:45 Celecoxib 200 Mg Cap PO 09/26/22 16:00 400 mg PREOP LAYLA Administration Gabapentin 300 mg 09/26/22 06:00 09/26/22 07:45 Gabapentin 300 Mg Cap PO 09/26/22 16:00 300 mg PREOP LAYLA Administration Tranexamic Acid 1,000 mg/ 60 mls @ 360 mls/hr 09/26/22 06:00 Sodium Chloride IVPB 09/26/22 18:00 PREOP LAYLA Ringer's Solution 1,000 mls @ 80 mls/hr 09/26/22 06:00 09/26/22 07:41 IV 10/25/22 23:59 80 mls/hr INFUSION LAYLA Administration Cefazolin Sodium/Dextrose 2 gm in 50 mls @ 100 mls/hr 09/26/22 06:00 Ancef Duplex IVPB 09/26/22 16:00 PREOP LAYLA IV Miscellaneous Supplies 1 each 09/26/22 06:00 Iv Access IV 10/25/22 23:59 DIRECTED LAYLA Sodium Chloride 0 ml 09/26/22 06:00 Normal Saline Flush 10 Ml Syr IV 10/25/22 23:59 PRN PRN Sodium Chloride 0 ml 09/26/22 06:00 Normal Saline 10 Ml Vial IJ 10/25/22 23:59 DIRECTED PRN Sterile Water 0 ml 09/26/22 06:00 Water,Injection,Sterile 10 Ml Vial IJ 10/25/22 23:59 DIRECTED PRN PFSH Active Problems Active Problems: Problem Status Onset Code Patellofemoral arthritis of right knee M17.11 Internal derangement of right knee M23.91 Effusion of knee joint right M25.461 Localized amplified musculoskeletal pain syndrome M79.18 No-show for appointment Z53.29 Chondromalacia patellae of right knee M22.41 Medical History Medical History Hoffa's fat pad disease Lateral meniscal tear Plica of knee Tear of cartilage of right knee Surgical History Surgical History History of carpal tunnel release of both wrists History of cholecystectomy History of hysterectomy History of right knee surgery History of shoulder surgery L shoulder impingment surgery Tobacco Smoking/Tobacco Use Status: Former Tobacco Use Alcohol Alcohol Intake: never Substance Use Substance use: Never Substance use type: does not use Vital Signs and Lab Results Vital Signs Most Recent Vital Signs in EMR: Most Recent Vital Signs Temp Pulse Resp BP Pulse Ox 36.5 C 77 18 120/74 97 09/26/22 07:07 09/26/22 07:07 09/26/22 07:07 09/26/22 07:07 09/26/22 07:07 Lab Results Blood Type / Crossmatch: No Data to Display Complete Blood Count: No Data to Display Complete Metabolic Panel: No Data to Display Liver Function Panel: No Data to Display Coagulation Panel: No Data to Display Cardiac Panel: No Data to Display Arterial Blood Gas: No Data to Display Venous Blood Gas: No Data to Display Pancreas Panel: No Data to Display Thyroid Panel: No Data to Display Infectious Disease: No Data to Display Blood Cultures: No Data to Display Toxicology Panel: No Data to Display Panel: No Data to Display Imaging and Studies Imaging and Studies Study information below may be from another EMR and interpreted by another provider. Please see original notes in EMR for more complete details. EKG Summary: 03/03/2022: Exam: Resting ECG Reason for Exam: chest pain Patient Location: E HR:83 bpm ECG Measurements Heart Rate [address] 136 P 65 QRSd 88 QRS 71 QT 370 T36 QTc 434 Conclusion Sinus rhythm...normal P axis, V-rate 60- 99. Sinus. Normal axis. No STEMI. I have reviewed and interpreted ECG and agree with software generated interpretation. Anesthesia Assessment and Plan Anesthesia History Personal History: No History of Anesthesia Complications Family History: No Family History of Anesthesia Complications Exercise Tolerance Exercise Tolerance: Metabolic Equivalents>4 Pertinent Negatives Pertinent Negatives: No Symptoms of GERD, No Major Cardiovascular Symptoms or Complaints and No Major Pulmonary Symptoms or Complaints Cardiac & Pulmonary Exam Cardiac Exam: Normal S1/S2 Heart Sounds Pulmonary Exam: Clear Bilateral Breath Sounds Implantable Cardiac Device Does patient have a Pacemaker or an ICD?: No Airway Exam Known Difficult Airway: No Mallampati Class: 2 Mouth Opening: Normal (> 3cm) Thyromental Distance: Greater than 3 cm Neck Range of Motion: Full ROM Neck Circumference: Normal Teeth Condition: Normal Dentition ASA Classification ASA Score: ASA 2 Emergency Case?: No NPO Status NPO Status: NPO Clears >2 hours, Solids >8 hours Status Status: History of Hysterectomy Anesthesia Plan Resuscitation Status: Full Code Anesthesia Technique: Spinal Anesthesia Airway Planned: Natural Airway Pain Management: Surgeon and patient request nerve block Monitors Used: Standard Monitors
--- NOTE | 2022-09-26 08:30 | W.ANESNERVE ---
Nerve Block Single Injection Procedure Date and Time Date Performed: 09/26/22 Procedure Start: 08:22 Location Where Procedure Performed Procedure Location: Day Surgery Unit Reason Performed: Postoperative Analgesia Requesting Provider: Med Valdez Timeout Performed Timeout Performed: Yes Monitoring Used ECG, Blood Pressure, SpO2 and See EMR for corresponding vital signs Sterility Sterility: Hand Hygiene, Surgical Cap, Surgical Mask, Sterile Gloves and Chlorhexidine Sedation Given During Procedure Sedation Given (Indicate Dose Given): Versed IV Dose:: 2mg Patient Mental Status Patient Mental Status: Sedate with meaningful communication Nerve Block 1st Nerve Block: Laterality: Right Block Type: Adductor Canal Ultrasound Image Saved?: Yes Needle / Catheter Used: 100mm SonoPlex II Local Anesthetic Bolus (Indicate Dose Given): Lidocaine used for local infiltration of skin, Injected in 3-5ml increments after negative blood aspiration and Bupivacaine 0.25% Dose:: 15mL Additives (Indicate Dose Given): None Ultrasound: Sterile probe cover and gel used Nerve Stimulator: Supplement to Ultrasound use and No twitch or parasthesia noted < 0.5 mA Paresthesia: None Procedure Tolerated: No Complications Procedure Outcome: Successful Performed By: Thuy Kuo
[2022-09-26] MEDS: ceFAZolin 2 GM/50 ML BAG IVPB (09:09)
--- NOTE | 2022-09-26 10:58 | PDOC.DSDIS_ITS ---
Date of service: 09/26/22 Time of Service: 10:58 Discharge Plan Disposition Patient Disposition: Home Condition: Good Discharge Details Reason For Visit: R PF Replacement Attending Provider: Med Valdez Primary Care Provider: None,None Home Meds and New Rx's Prescriptions: New celecoxib 200 mg capsule 200 mg PO BID Qty: 60 0RF aspirin 81 mg tablet,delayed release (DR/EC) 81 mg PO BID Qty: 60 0RF acetaminophen 500 mg tablet 1,000 mg PO TID Qty: 90 3RF pantoprazole 40 mg tablet,delayed release (DR/EC) 40 mg PO DAILY Qty: 30 0RF dexamethasone 4 mg tablet 4 mg PO DAILY Qty: 2 0RF gabapentin 300 mg capsule 300 mg PO QHS Qty: 14 0RF oxycodone 5 mg tablet 5 mg PO Q4H MDD 6 tabs PRN (Reason: pain) Qty: 20 0RF Continued aripiprazole 20 mg tablet 1 tab PO DAILY bupropion HCl 150 mg tablet extended release 24 hr 1 tab PO DAILY Discharge Instructions Additional Instructions: PF Replacement Discharge Instructions Activity: The most important activity is to walk and to work on gentle motion (both flexion and extension). You should try to take short walks a few times a day. It is important that when resting you work on keeping the knee straight. Avoid putting a pillow behind the knee as this will encourage flexion. Work on range of motion exercises as provided by Physical Therapy. - Start outpatient physical therapy within 2 weeks. - You should wear the ZHANNA hose on both legs for 2 weeks. You may remove these at night. You may also use any compression sock in place of the ZHANNA hose. - Utilize [employer] to review exercises, see videos on exercises and obtain basic information pertaining to your surgery and your recovery. Dressing: Remove the Sushil wrap by 2 days after your surgery and put on the ZHANNA stocking given to you from the hospital. Keep the surgical dressing (underneath the SUSHIL wrap) in place for at least one week. After the first week it may be removed and replaced with light gauze and tape or nothing. The wound and dressing may get wet after 3 days but avoid soaking the dressing or otherwise it will need to be changed. Many people prefer covering the dressing with cling wrap (saran wrap) to minimize it from getting soaked. If it gets wet, just pat dry. If it starts to peel off then it will need to be changed. Medications: - You should take Tylenol and anti-inflammatory Celebrex as your primary pain control medications. If the Celebrex is too expensive or not covered, please call the office for another alternative (Advil/Ibuprofen or Naproxen/Aleve) - You have been prescribed a stronger pain medication Oxycodone for breakthrough pain, take as needed as prescribed. - You have also been prescribed a stomach acid reduction agent Pantoprozole to help reduce stomach acid and reflux. - You have been prescribed Gabapentin to take at night for restlessness and nerve pain. - You will be taking Aspirin 81mg twice a day for DVT prevention unless instru cted otherwise. - You have also been prescribed Decadron to take to control post-operative nausea and pain. You will start this tomorrow. - If you have constipation you should take Colace or Miralax (both [id number]). It takes most people 3-4 days to have a bowel movement. Follow-up: 2 weeks If you have any acute concerns or questions, please do not hesitate to contact the office at [phone]. You may contact Dr. Valdez with any questions after hours through the hospital at [phone] or on his cell phone at [phone]. Referrals: Med Valdez MD [ [facility] STAFF PHYSICIAN] - Equipment/Supplies: Walker Activity:: Activity as Tolerated Remove Dressings/Wound Care:: Do Not Remove Shower/Bathe:: 72 hours Diet:: As Tolerated Discharge Orders Discharge Orders: Discharge Order (Routine); Ordered 09/26/22 Ordered By: Yash Jacinto
[2022-09-26] MEDS: oxyCODONE 5 MG TAB PO (11:47)
--- NOTE | 2022-09-26 12:16 | W.ANESPOSTOP ---
Postoperative Evaluation Date, Time and Location Date Performed: 09/26/22 Time Performed: 12:16 Patient Location: Day Surgery Unit Vital Signs Most Recent Imported Vital Signs: Most Recent Vital Signs Temp Pulse Resp BP Pulse Ox 36.5 C 73 18 119/81 98 09/26/22 12:05 09/26/22 12:05 09/26/22 12:05 09/26/22 12:05 09/26/22 12:05 Pain Score Most Recent Pain Score: Most Recent Pain Score Pain Level [Right Anterior 7 09/26/22 12:14 Knee] Pain Level 6 09/26/22 12:05 Assessment Mental Status: Awake (Alert & Oriented to Patient Baseline) Airway and Respiratory Function: Patent airway with normal (patient baseline) respiratory exam Cardiovascular Function: Hemodynamically Stable Hydration Status: Adequately Hydrated Nausea & Vomiting: No Nausea or Vomiting Pain: Pain is Moderate or Severe Postoperative Pain Management: Pain being addressed with medication Peripheral Nerve Block: Patient did not receive a nerve block
--- NOTE | 2022-09-26 13:02 | ROE_ITS ---
Date of service: 09/26/22 Time of Service: 10:30 Operative Note Operative Note DATE OF PROCEDURE: 09/26/22 PRE-OP DIAGNOSIS: Right Patellofemoral Arthritis POST-OP DIAGNOSIS: same PROCEDURE: Right Patlleofemoral Replacement SURGEON: Med Valdez GLASS BLOWING INSTRUCTOR: Yash Jacinto ANESTHESIA TYPE: Spinal Refer to Anesthesia Record ESTIMATED BLOOD LOSS: 50 PATHOLOGY: none sent TOURNIQUET TIME: 0 COMPLICATIONS: None Patient was transported to: PACU Patient's condition: stable Implants: 1. Arthrosurface WaveKahuna Trochlear Component, 11.5x5mm 2. Depuy Attune Patellar Button, 35mm Indications: Angelic is a 51 year old female who has had symptoms of right patellofemoral arthritis. Conservative measures have been exhausted yet pain and dysfunction persisted. Please see office notes for complete details. Given the continued symptoms, I recommended a patellofemoral replacement. I reviewed the risks of the procedure to include bleeding, infection, pain, stiffness, worsening medial or lateral compartment arthritis, patellar instability, loosening, fracture, clot. Despite these risks, she elected to proceed. Findings: There was notable arthritic change within the patellofemoral compartment focused over the central patella. The remainder of the knee did not show any extensive cartilage wear. Procedure Description: Angelic was greeted in the preoperative holding area where the correct side was identified and marked. The consent was reviewed with the patient and signed. The history and physical was updated. All questions were answered. Preoperative mediacations were administered: Acetaminophen 1000mg, Celebrex 400mg, and Gabapentin 300mg. An adductor canal block was then administered by the anesthesia team in the PACU. She was taken back to the operating room. A spinal anesthestic was then administered. The patient was placed into the supine position on the operating room table. A nonsterile tourniquet was placed high onto the leg but not used. Posts were placed for positioning during the procedure. All bony prominences were well padded. Prophylactic antibiotics in the form of Cefazolin were administered. 1g of Tranxemic Acid was given intravenously within 30 minutes of incision. The right leg was then prepped with Chloraprep and draped in a standard fashion with impervious stockinette and extremity drape. A second prep with Chloraprep was performed prior to placing Ioband. A timeout to confirm correct identity, side and site, procedure, allergies, anesthesia, and medical concerns was performed. With the knee in some flexion, a midline incision was made overlying the knee. Full thickness skin flaps were raised once the extensor mechanism was encountered. These were raised medially and laterally. Any bleeding was controlled with electrocautery. Once the extensor mechanism was fully exposed, a medial parapatellar arthrotomy was performed in a flexed position. All bleeding from the arthrotomy and the geniculate arteries was coagulated. The menisci and intrameniscal ligament was preserved. The knee was held in extension and the patella was measured as 22 mm. Using the patellar clamp and cut guide, this was resected to a flat surface with at least 13mm of thickness remaining. The size 35 patella fit the best. This was oriented and then clamped into position. The lugs were drilled. The Arthrosurface patellofemoral trial was then placed in the appropriate position and a single guidewire was placed through the center of this device. This was confirmed to be in appropriate location using the targeting arm. The trochlea was then sized in both directions corresponding to an 11.5 x 5. The initial reamer was then placed and taken down to appropriate depth. The reaming and drill guide was then placed within this recess and secured with pins. Using both the centralized reamer and the edge reamer, the trochlear recess was prepared. The guide was removed and the edges were curetted for completeness. The central hole was then prepared with a drill and a tap. The outer surface screw was then inserted to the premeasured depth. The 11.5 x 5mm patellofemoral Wave trochlear component by Arthrosurface was then malleted into position sitting flush over the lateral and proximal lateral aspect. High viscosity cement was prepared on the back table under vacuum preparation. When ready, cement was manually impacted into the cut surface of the patella and the patellar button was clamped into position and held. During this process attention was turned to the gutters of the knee and for all interfaces for any excess cement. While the cement was hardening, the knee was irrigated with Irrisept chlorhexadine solution. It was allowed to sit in the knee for 3 minutes. After the cement had finally cured, approximately 15min, the clamp was removed from the patella and the knee was taken through range of motion. The capsule was then reapproximated with a No. 1 Vicryl. The second dosing of 1g TXA was started. Deep tissues were then reapproximated with 0 Vicryl and 2-0 Vicryl. The skin was closed with a running 3-0 Monocryl in a subcuticular fashion. This was reinforced with skin glue. A Mepilex silver dressing was applied along with a [id number] OWEN wrap. A CryoCuff was applied. Angelic was transferred to the hospital bed without difficulty an suffering no apparent complication. She has a good prognosis. Physical therapy will start today and without restrictions, weight-bearing as tolerated. Aspirin 81mg BID will be used for DVT prophylaxis.
--- NOTE | 2022-09-26 13:26 | PT.INIE ---
Date of service: 09/26/22 Time of Service: 12:56 PT Notes Visit Reasons: R PF Replacement Physical Therapy Day Surgery Initial Evaluation Date: 09/26/2022 Referring Doctor: DEJUAN Alonzo PT Orders: PT CONSULT: Eval/treat Precautions: WBAT on right LE with AD. Patient Profile/Admitting Diagnosis: Angelic is a 51-year-old female with patellofemoral arthritis of the right knee and status post patellofemoral replacement on postoperative day 0. PMHX: Medical History? Hoffa's fat pad disease Lateral meniscal tear Plica of knee Tear of cartilage of right knee Surgical History? History of carpal tunnel release of both wrists History of cholecystectomy History of hysterectomy History of right knee surgery History of shoulder surgery L shoulder impingment surgery Social History/Home Situation: Independent with all aspects of ADLs prior to surgery. Will have support at home as she recovers from this surgery. Equipment Owned/DME: None Subjective: Reports 2?3/10 pain in the right knee with weight bearing. Denies headache, chest pain, and lightheadedness throughout session. Objective: General Observation: Seated on bedside chair. Sushil wraps to right LE. Cryocuff to right knee. Mental Status: Alert and oriented x 4 Pain: 2?3/10 pain in the right knee ROM: Right Lower Extremity: Hip flexion WFL. Hip abduction WFL. Knee flexion 0-90 degrees. Knee extension 90 to 0 degrees.. Ankle dorsiflexion WFL. Ankle plantarflexion WFL. Left Lower Extremity: Hip flexion WFL. Hip abduction WFL. Knee flexion WFL. Ankle dorsiflexion WFL. Ankle plantarflexion WFL. Strength: Right Lower Extremity: Hip flexors 5/5. Hip abductors 5/5. Knee flexors 3-/5. Knee extensors 3-/5. Ankle dorsiflexors 5/5. Ankle plantarflexors 5/5. Left Lower Extremity:Hip flexors 5/5. Hip abductors 5/5. Knee flexors 5/5. Knee extensors 5/5. Ankle dorsiflexors 5/5. Ankle plantarflexors 5/5. Sensation: To pain and light pressure in bilateral lower extremities Bed Mobility/Transfers: Sit to stand supervision Stand to sit supervision Bed to chair supervision Gait: 150 feet on level surface ambulation using front wheeled walker with step to gait pattern requiring standby assist. No LOB. NO SOB. Stairs: Negotiated 6 x 4 inch steps and 4 x 6-inch steps while holding onto bilateral rails with contact-guard assist,step-to gait pattern. Balance: Static Sitting: Normal Dynamic Sitting: Normal Static Standing: Fair Dynamic Standing: Fair Special Tests: Mobility Limitations Standardized Measure [facility] 6 clicks Basic Mobility Inpatient Short Form: Raw Score: 23 CMS Score: 11% deficit Informed Consent/Education: Patient instructed in purpose of PT consult. Packet containing TKA exercise protocol has been given to patient. Education and training on initial set of exercises that can be done at home have been completed with patient. THERA EX: Seated quad sets x5 Seated heel slides x5 Seated ankle pumps x 10 Small range SLR x5 Seated marches x5 Assessment: Patient requires the use of a front wheeled walker to maximize independence and reduce fall risk. Patient presents with clinical signs and symptoms consistent with current/admitting diagnoses that have resulted to mobility limitations, gait instability, generalized weakness, and impairment of motor control as demonstrated by the following impairment level findings: 1. Decreased strength to left R major muscle groups 2. Impaired standing balance 3. Limitation of joint range of motion in R knee Impairments are contributing to the following functional limitations: 1. Inability to safely ambulate without assistive device 2. Increase completion time for mobility ADL performance 3. Increased fall risk Patient is assessed as a [id number] moderate complexity based on the following: History: 51-year-old female with impairment level findings, functional limitations, and past medical history as indicated above Examination: Demonstrable impairment in strength, balance, and mobility level with underlying impairments and functional limitations as documented above Presentation: Evolving Decision Makin moderate complexity Goals: N/A. PT evaluation and 1-2 treatment sessions only for functional mobility training using recommended AD and for HEP instruction. Plan of Care/Treatment Plan: N/A. PT evaluation and 1-2 treatment session only for functional mobility training using recommended AD and for HEP instruction. DISCHARGE RECOMMENDATIONS: Home when medically cleared by orthopedic surgeon. Recommend outpatient PT services in order to optimize functional mobility outcomes and facilitate return to independent community ambulation without an assistive device per prior level of function. TREATMENT CODE/TIME: 41785 x 26 minutes beginning at 12:56 PM. Thank you for the opportunity to participate in the care of this patient. Shanelle Zaidi PT, DPT, CLT [facility] [place], [place]
== END 2022-09-26 13:45 | disposition home or self-care (01) ==
PROVIDERS: Visit Provider Student in an Organized Health Care Education/Training Program
PROC: (CPT 27437; principal; 2022-09-26 09:30)
DX: M17.11 Unilateral primary osteoarthritis, right knee (principal)
CPT/HCPCS: 27446; C1776; 76942; 97162; J0690; J2250; J2370; J2405

== ENCOUNTER 2022-10-11 11:50 | Outpatient (CLI) | payer MEDICARE, MEDICAID, SELFPAY ==
--- NOTE | 2022-10-11 11:15 | DI.RAD_ITS ---
Exam(s) XR KNEE RT 3V AP,LAT,CARLOS EXAM: XR KNEE RT 3V AP,LAT,CARLOS CLINICAL HISTORY: 1ST POST OP R PATELLOFEMORAL REPLACEMENT. TECHNIQUE: 2D digital imaging was performed. Three views. COMPARISON: CR XR KNEE RT 3V AP,LAT,CARLOS from 04/03/2022 MR MR LOWER JOINT RT WO from 04/24/2022 FINDINGS: BONES: No acute fracture is present. No bony destructive lesion is seen. A patellofemoral joint spa ce prosthesis has been placed in the interval. The alignment appears satisfactory. JOINTS: The knee is normally aligned. A effusion is seen. SOFT TISSUE: Some anterior soft tissue swelling. IMPRESSION: Patellofemoral joint prosthesis. DATA REPOSITORY: RADIATION DOSE DELIVERED:
== END 2022-10-11 11:51 | disposition home or self-care (01) ==
LOC: DIORS 11:50
PROVIDERS: Visit Provider Student in an Organized Health Care Education/Training Program
DX: Z47.1 Aftercare following joint replacement surgery (principal); Z96.651 Presence of right artificial knee joint
CPT/HCPCS: 73562

== ENCOUNTER → 2022-11-08 11:00 | Outpatient (BNVA) | payer MEDICARE, MEDICAID, SELFPAY | DX: Z47.1 Aftercare following joint replacement surgery (principal); Z96.651 Presence of right artificial knee joint ==

== ENCOUNTER → 2023-05-01 01:09 | Outpatient (CLI) | payer MEDICARE, MEDICAID, SELFPAY ==
--- NOTE | 2023-05-01 10:50 | DI.RAD_ITS ---
Exam(s) XR KNEE RT 3V AP,LAT,CARLOS EXAM: XR KNEE RT 3V AP,LAT,CARLOS CLINICAL HISTORY: Swelling, pain,[id number]. TECHNIQUE: 2D digital imaging was performed. Four images were obtained. AP, PA tunnel and lateral v iews were obtained. COMPARISON: CR XR KNEE RT 3V AP,LAT,CARLOS from 10/11/2022 FINDINGS: BONES: There are stable post operative changes of a partial right knee replacement present. No fract ure or dislocation. JOINTS: The orthopedic hardware is in good position. No evidence of hardware loosening. There is a joint effusion present. SOFT TISSUE: Normal. IMPRESSION: 1. Stable postoperative changes. 2. Moderate joint effusion. DATA REPOSITORY: RADIATION DOSE DELIVERED:
== END ==
PROVIDERS: Visit Provider Nurse Practitioner Family
DX: M25.561 Pain in right knee (principal); Z98.890 Other specified postprocedural states; R22.41 Localized swelling, mass and lump, right lower limb
CPT/HCPCS: 73562

== ENCOUNTER → 2023-05-24 09:01 | Outpatient (BNVA) | payer MEDICARE, MEDICAID, SELFPAY | PROVIDERS: Visit Provider Student in an Organized Health Care Education/Training Program | DX: Z47.1 Aftercare following joint replacement surgery (principal); Z96.651 Presence of right artificial knee joint; M25.561 Pain in right knee | CPT/HCPCS: 99213 ==

== ENCOUNTER 2023-09-28 19:11 | Emergency (ER) | payer MEDICARE, MEDICAID, SELFPAY ==
[2023-09-28] VITALS (25 sets, daily range): BP systolic 112–170; BP diastolic 49–113; PULSE 62–94; RESP 9–24
--- NOTE | 2023-09-28 19:00 | RT.EKG_ITS ---
APPROVED REPORT Exam: Resting ECG Reason for Exam: chest pain Patient Location: E HR:94 bpm ECG Measurements Heart Rate 94 AXIS NC 135 P 72 QRSd 84 QRS 78 QT 331 T 31 QTc 414 Conclusion Sinus rhythm...normal P axis, V-rate 60- 99 sinus rhythm, normal axis, normal intervals, non ischemic
--- NOTE | 2023-09-28 19:15 | DI.RAD_ITS ---
Exam(s) XR CHEST 2V PA LATERAL EXAM: XR CHEST 2V PA LATERAL CLINICAL HISTORY: chest pain. TECHNIQUE: 2D digital imaging was performed. COMPARISON: CR XR PORTABLE CHEST AP from 06/26/2022 FINDINGS: 2 views: Heart size is normal. The mediastinum is not widened. Lungs are clear. No infiltrates nor pleural effusions. IMPRESSION: No acute pulmonary findings. DATA REPOSITORY: RADIATION DOSE DELIVERED:
--- NOTE | 2023-09-28 19:20 | ED.GENADUL_ITS ---
Discharge Plan Disposition Patient Disposition: Home Condition: Improving Discharge Details Chief Complaint: Chest Pain Clinical Impression: Chest pain Primary Care Provider: Unknown,Unknown ED Provider: Blanco Caceres Home Meds and New Rx's Prescriptions: No Action celecoxib 200 mg capsule See Rx Instructions .ROUTE .COMPLEX Qty: 60 3RF Dose Instruction: TAKE 1 CAPSULE BY MOUTH TWICE DAILY NEEDED FOR PAIN Rx Instructions: TAKE 1 CAPSULE BY MOUTH TWICE DAILY NEEDED FOR PAIN acetaminophen 500 mg tablet 1,000 mg PO TID Qty: 90 3RF aripiprazole 20 mg tablet 1 tab PO DAILY bupropion HCl 150 mg tablet extended release 24 hr 1 tab PO DAILY Discharge Instructions Instructions: Chest Pain (ED) HPI General Date/Time Provider Initiated Documentation: 09/28/23 19:13 . HPI Narrative: 52-year-old female presents with chest pain nature anterior nonradiating lasting for minutes at a time intermittent in nature. Denies history of coronary disease or thromboembolic disease Related Data Home Medications Medication Instructions Recorded Confirmed aripiprazole 20 mg tablet 1 tab PO DAILY 03/03/22 09/28/23 bupropion HCl 150 mg 24 hr tablet, 1 tab PO DAILY 03/03/22 09/28/23 extended release acetaminophen 500 mg tablet 1,000 mg (2 x 500 mg) PO TID #90 09/26/22 09/28/23 tabs celecoxib 200 mg capsule See Rx Instructions .Route 08/25/23 09/28/23 .COMPLEX #60 caps Previous Rx's Medication Instructions Recorded acetaminophen 500 mg tablet 1,000 mg (2 x 500 mg) PO TID #90 09/26/22 tabs celecoxib 200 mg capsule See Rx Instructions .Route 08/25/23 .COMPLEX #60 caps Allergies Allergy/AdvReac Type Severity Reaction Status Date / Time No Known Allergies Allergy Verified 09/28/23 19:18 General Stated Complaint: Chest Pain MARLENI: 3 Review of Systems Narrative: Review of Systems Constitutional: negative Eyes: negative ENT: negative Cardiovascular: Chest pain Respiratory: negative Gastrointestinal: negative : negative Musculoskeletal: negative Skin: negative Neurologic: negative Psych: negative Exam Narrative Exam Narrative: Physical Examination General: alert, awake, cooperative, anxious appearing HEENT: normocephalic, atraumatic; PERRL, EOM intact, conjunctiva normal; no nasal discharge; moist mucous membranes, oral and pharyngeal mucosa normal, tolerating secretions Neck: supple, trachea midline; full ROM Chest: normal to inspection Respiratory: normal respiratory effort, speaking in full sentences, clear to auscultation, no wheezing, rales or rhonchi Cardiac: regular rate, regular rhythm, S1S2 intact, no murmurs rubs or gallops GI: abdomen soft, non-tender, non-distended; no palpable mass or hepatosplenomegaly Skin: no lesions, rashes or trauma appreciated Neuro: AAOx3, normal speech, moving all extremities Extremities: No peripheral edema Psych: Anxious appearing Course Vital Signs Vital signs: Vital Signs Pulse 94 H 09/28/23 19:14 Respiratory Rate 24 09/28/23 19:14 Blood Pressure 154/113 H 09/28/23 19:14 Pulse 94 H 09/28/23 19:14 Respiratory Rate 24 09/28/23 19:14 Respiratory Effort Normal 09/28/23 19:18 Blood Pressure 154/113 H 09/28/23 19:14 Blood Pressure Position Sitting 09/28/23 19:14 Medical Decision Making 52-year-old female presents with intermittent anterior sharp chest pain over the last day, no associated symptoms no radiation, no history of thromboembolic disease or coronary disease, EKG normal sinus rhythm normal axis normal intervals nonischemic. Patient appears anxious. Consider panic attack versus ACS versus musculoskeletal chest pain such as pleurisy or costochondritis low suspicion for pneumothorax or pneumonia low suspicion for PE or aortic pathology. Trial of Ativan, will load with aspirin, will obtain basic labs troponin BNP chest x-ray coags close reassessment of symptoms. 20: 51 chest pain-free resting comfortably. Labs x-ray and EKG unremarkable. High clinical suspicion for musculoskeletal chest pain versus anxiety. 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 No-show for appointment (Acute) Chondromalacia patellae of right knee (Acute) Medical History Lateral meniscal tear Plica of knee Hoffa's fat pad disease Tear of cartilage of right knee Surgical History History of shoulder surgery L shoulder impingment surgery History of carpal tunnel release of both wrists History of right knee surgery History of cholecystectomy History of hysterectomy Social History Smoking/Tobacco Use Status: Former Tobacco Use Quit Date: 04/27/20 Smoking risk assessment performed?: Yes Alcohol Intake: never Drug use: Never Substance use type: does not use Current gender identity: female Do you feel safe at home: Yes Do you feel safe in your relationship?: Yes
[2023-09-28] MEDS: LORazepam 2 MG/ML VIAL 1 MG IVP (19:23)
[2023-09-28] MEDS: Aspirin 81 MG CHEW 324 MG CH (19:23)
[2023-09-28 19:32] LABS: Abs Immature Grans 0.02 10^3/uL (0.0-0.06); Absolute Basophil Count 0.02 10^3/uL (0.0-0.2); Absolute Eosinophil Count 0.14 10^3/uL (0.0-0.7); Absolute Lymphocyte Count 3.34 10^3/uL (1.2-3.4); Absolute Monocyte Count 0.47 10^3/uL (0.1-0.8); Absolute Neutrophil Count 4.77 10^3/uL (1.2-6.7); Basophils % 0.2; Eosinophils % 1.6; HCT 43.8 % (36.0-46.0); HGB 14.6 g/dL (11.2-15.7); Immature Grans % 0.2; Lymphocytes % 38.1; MCH 28.6 pg (27.0-33.0); MCHC 33.3 % (32.0-36.0); MCV 86 fL (80-95); MPV 10.9 fL (8.0-11.0); Monocytes % 5.4; Neutrophils % 54.5; Platelet Count 244 10^3/uL (130-400); RBC 5.11 10^6/uL (3.93-5.22); RDW 13.5 % (11.7-14.6); RDW-SD 42.2 fL; WBC 8.76 10^3/uL (4.4-10.8)
[2023-09-28 19:45] LABS: PTT Activated 23.7 sec (23.6-32.8); Prothrombin Time 9.6 sec (9.1-11.1)
[2023-09-28 19:57] LABS: ALT 19 U/L (14-59); AST 12 U/L (15-37); Albumin 3.8 g/dL (3.4-5.0); Alkaline Phosphatase 148 U/L (46-116); Anion Gap 8.7 mmol/L (3-11); BUN 16 mg/dL (7-18); Bilirubin, Total 0.2 mg/dL (0.2-1.0); CO2 29.3 mmol/L (21.0-32.0); CREATININE 1.2 mg/dL (0.55-1.02); Calcium 9.2 mg/dL (8.5-10.1); Chloride 104 mmol/L (98-107); Estimated GFR 55.15 (mL/min/1.73m2); Glucose 112 mg/dL (74-106); Lipase 28 U/L (16-77); NT-proBNP 15 pg/mL (<300); Potassium 3.9 mmol/L (3.5-5.1); Sodium 142 mmol/L (136-145); TSH (W/Ref FT4) 3.33 uIU/mL (0.36-3.74); Total Protein 7.3 g/dL (6.4-8.2); Troponin I < 50 ng/L (< or =60)
--- NOTE | 2023-09-28 20:02 | DI.VRAD_ITS ---
PROCEDURE INFORMATION: Exam: XR Chest Exam date and time: 09/28/2023 7:37 PM Age: 52 years old Clinical indication: Other: Chest pain TECHNIQUE: Imaging protocol: Radiologic exam of the chest. Views: 2 views. COMPARISON: CR XR PORTABLE CHEST AP 06/26/2022 10:43 AM FINDINGS: Limitations: Patient positioning is lordotic. Lungs: No pulmonary consolidation is seen. Pleural spaces: No pleural effusion or pneumothorax is demonstrated. Heart/Mediastinum: The heart appears normal in size. Bones/joints: The visualized bony structures appear grossly intact, as seen. IMPRESSION: No active disease is seen in the chest. Dictated and Authenticated by: Javier Esparza MD. Ordering:NIKO Simeon MD
== END 2023-09-28 21:19 | disposition home or self-care (01) ==
PROVIDERS: Emergency Provider Emergency Medicine
DX: R07.9 Chest pain, unspecified (principal); Z87.891 Personal history of nicotine dependence
CPT/HCPCS: 80053; 83690; 93005; 96374; 99284; 71046; 83880; 84443; 84484; 85025; 85610; 85730; 93010; J2060

== ENCOUNTER 2023-09-30 15:22 | Outpatient (CLI) | payer MEDICARE, MEDICAID, SELFPAY ==
--- NOTE | 2023-09-30 11:00 | DI.RAD_ITS ---
Exam(s) XR KNEE RT 3V AP,LAT,CARLOS EXAM: XR KNEE RT 3V AP,LAT,CARLOS CLINICAL HISTORY: YEARLY F/U. TECHNIQUE: 2D digital imaging was performed. Three views. COMPARISON: CR XR KNEE RT 3V AP,LAT,CARLOS from 05/01/2023 FINDINGS: BONES: No acute fracture is present. No bony destructive lesion is seen. JOINTS: The knee is normally aligned. No joint effusion is seen. Stable appearance of patellofemora l joint space prosthesis. Femoral tibial joint spaces are maintained. SOFT TISSUE: Normal. IMPRESSION: Stable appearance of femoral tibial joint prosthesis. DATA REPOSITORY: RADIATION DOSE DELIVERED:
== END 2023-09-30 15:23 | disposition home or self-care (01) ==
LOC: DIORS 15:22
PROVIDERS: Visit Provider Student in an Organized Health Care Education/Training Program
DX: Z96.651 Presence of right artificial knee joint (principal); Z47.1 Aftercare following joint replacement surgery
CPT/HCPCS: 73562; 99213

== ENCOUNTER 2023-11-28 15:12 | Emergency (ER) | payer MEDICARE, MEDICAID, SELFPAY ==
[2023-11-28] VITALS (28 sets, daily range): BP systolic 119–146; BP diastolic 43–78; PULSE 64–82; RESP 14–98; O2SAT 98
--- NOTE | 2023-11-28 15:00 | RT.EKG_ITS ---
APPROVED REPORT Exam: Resting ECG Reason for Exam: chest pain Patient Location: E HR:89 bpm ECG Measurements Heart Rate 89 AXIS RI 136 P 59 QRSd 81 QRS 69 QT 345 T 40 QTc 421 Conclusion Sinus rhythm...normal P axis, V-rate 60- 99 Normal Electrocardiogram There are no significant changes compared to prior EKG performed on 03/03/2022 at 18:22.
--- NOTE | 2023-11-28 15:16 | W.ED.GENAD ---
Discharge Plan Disposition Patient Disposition: Home Condition: Good Discharge Details Clinical Impression: Chest pain Primary Care Provider: Unknown,Unknown ED Provider: Wilton Butt and New Rx's Prescriptions: Continued celecoxib 200 mg capsule See Rx Instructions .ROUTE .COMPLEX Qty: 60 3RF Dose Instruction: TAKE 1 CAPSULE BY MOUTH TWICE DAILY NEEDED FOR PAIN Rx Instructions: TAKE 1 CAPSULE BY MOUTH TWICE DAILY NEEDED FOR PAIN aripiprazole 20 mg tablet 1 tab PO DAILY bupropion HCl 150 mg tablet extended release 24 hr 450 mg PO DAILY acetaminophen 500 mg tablet 1,000 mg PO TID PRN Discharge Instructions Instructions: Chest Pain (ED) Additional Instructions: You were seen in the ED for chest pain, shoulder pain, back pain. Your exam, EKG, chest x-ray, laboratory studies are all reassuring. Please take your celecoxib twice a day for the next few days as we discussed. Care management will be reaching out to you to help arrange for follow-up with a primary care physician. Return to ED for any new or worsening pain, fever, shortness of breath, syncope, neurologic change, other concerns. Referrals: Care Management [Provider Group] HPI General Mode of arrival: ambulatory. Date/Time Provider Initiated Documentation: 11/28/23 15:16. Limitations to Documentation: no limitations. Information obtained by: patient, RN notes reviewed and old records reviewed. HPI Narrative: Patient presenting to ED with complaint of left-sided chest pain, shoulder pain, back pain that has been intermittent lasting minutes at a time but persistent throughout the last 3 days. Pain is described as sharp in nature. Denies any nausea or syncope. Has been having sweats but denies fever or cough. Some difficulty taking a breath when she is having the pain. No shortness of breath otherwise. No abdominal pain, vomiting, diarrhea. Was seen here in September for similar pain and referred to primary care. Reports no follow-up and no primary care at this time. Denies any cardiac risk factors, previous clots, leg pain or leg swelling. Related Data Home Medications Medication Instructions Recorded Confirmed aripiprazole 20 mg tablet 1 tab PO DAILY 03/03/22 11/28/23 bupropion HCl 150 mg 24 hr tablet, 450 mg PO DAILY 03/03/22 11/28/23 extended release celecoxib 200 mg capsule See Rx Instructions .Route 08/25/23 11/28/23 .COMPLEX #60 caps acetaminophen 500 mg tablet 1,000 mg PO TID PRN 11/28/23 11/28/23 Previous Rx's Medication Instructions Recorded celecoxib 200 mg capsule See Rx Instructions .Route 08/25/23 .COMPLEX #60 caps Allergies Allergy/AdvReac Type Severity Reaction Status Date / Time No Known Allergies Allergy Verified 11/28/23 15:44 General MARLENI: 3 Review of Systems Narrative: Per HPI Exam Narrative Exam Narrative: Const: WDWN female in NAD. VS per triage. HEENT: NC/AT. Normal facial exam. Eyes: Normal conjunctiva and sclera. Neck: Supple. Trachea midline. Lungs: Normal respiratory effort. Lungs are clear. No chest wall tenderness. Cor: RRR without murmur. Good radial pulses. GI: Soft. NT/ND. No guarding or rebound. Neuro: A+O x 3. Normal speech, mentation, gait. Cranial nerves II - XII grossly intact. No gross motor or sensory deficit. Ext: No C/C/E. No calf tenderness. Skin: Warm and dry without rash. Medical Decision Making Patient presenting to ED with 3 days of intermittent sharp upper chest, left shoulder, left upper back pain. Previous presentation for similar type sharp chest pain few months ago. Was referred to PCP but does not have one and never followed up. Pain is not reproducible. It is not pleuritic. States feels a little short of breath when she has the pain. Her EKG per my read is normal. IV established laboratory studies obtained including a D-dimer though I suspect this is musculoskeletal in nature and less likely ACS or PE. History not consistent with dissection, pneumonia. Considered pneumothorax but will be seen on imaging. Patient ordered for ketorolac for pain. Patient CBC is normal. Chemistries unremarkable except for BUN of 23. Liver function normal. D-dimer negative. Initial troponin negative. Chest x-ray per my read with no acute cardiopulmonary process. Confirmed by final radiology read. Repeat troponin remains flat. Patient reports no pain since receiving ketorolac. She is prescribed celecoxib that she does not regularly take. Have instructed her to take twice a day over the next few days to see if this helps with her pain. Will refer to care management to reach out to patient and establish primary care follow-up. Return precautions provided. Medical Records Medical records reviewed: Yes I reviewed the patient's medical records. Lab Data Lab results reviewed: Yes I reviewed the patient's lab results. ECG Data Attestation: I personally reviewed and interpreted this ECG (s) as follows: Prior ECG tracings: available for review Interpretation: normal Quality:SDOH Health Related Social Needs: No Data to Display Health related social needs details: lack of PCP Referrals and interventions: referred to care management [facility] All Active Problems (Updated 11/28/23 @ 19:10 by Wilton Butt MD) Chest pain (Acute) Hoffa's fat pad disease (Acute) No-show for appointment (Acute) Medical History Arthritis Depression Surgical History Status post right partial knee replacement (09/26/22) History of shoulder surgery L shoulder impingment surgery History of carpal tunnel release of both wrists History of cholecystectomy History of hysterectomy Social History Smoking/Tobacco Use Status: Former Tobacco Use Quit Date: 04/27/20 Smoking risk assessment performed?: Yes Alcohol Intake: never Drug use: Never Substance use type: does not use Housing: house Current gender identity: female Do you feel safe at home: Yes Do you feel safe in your relationship?: Yes
[2023-11-28 15:38] LABS: Abs Immature Grans 0.03 10^3/uL (0.0-0.06); Absolute Basophil Count 0.03 10^3/uL (0.0-0.2); Absolute Eosinophil Count 0.22 10^3/uL (0.0-0.7); Absolute Monocyte Count 0.61 10^3/uL (0.1-0.8); Basophils % 0.3 %; Eosinophils % 2.4 %; HCT 41.6 % (36.0-46.0); HGB 13.7 g/dL (11.2-15.7); Immature Grans % 0.3 %; Lymphocytes % 28.3 %; MCHC 32.9 % (32.0-36.0); MCV 88 fL (80-95); MPV 11.5 fL (8.0-11.0); Monocytes % 6.6 %; Neutrophils % 62.1 %; Platelet Count 197 10^3/uL (130-400); RBC 4.73 10^6/uL (3.93-5.22); RDW 13.5 % (11.7-14.6); RDW-SD 43.8 fL; WBC 9.19 10^3/uL (4.4-10.8)
[2023-11-28] MEDS: Ketorolac 15 MG/ML VIAL IVP (15:47)
[2023-11-28 15:57] LABS: ALT 24 U/L (14-59); AST 8 U/L (15-37); Albumin 3.7 g/dL (3.4-5.0); Alkaline Phosphatase 125 U/L (46-116); Anion Gap 6.6 mmol/L (3-11); BUN 23 mg/dL (7-18); Bilirubin, Total 0.2 mg/dL (0.2-1.0); CO2 28.4 mmol/L (21.0-32.0); Calcium 8.9 mg/dL (8.5-10.1); Chloride 105 mmol/L (98-107); Estimated GFR 68.21 (mL/min/1.73m2); Glucose 93 mg/dL (74-106); Potassium 4.2 mmol/L (3.5-5.1); Sodium 140 mmol/L (136-145); Total Protein 6.9 g/dL (6.4-8.2); Troponin I < 50 ng/L (< or =60)
[2023-11-28 16:12] LABS: D-Dimer 266 ng/mlFEU (<500)
--- NOTE | 2023-11-28 16:15 | DI.RAD_ITS ---
Exam(s) XR CHEST 2V PA LATERAL EXAM: XR CHEST 2V PA LATERAL CLINICAL HISTORY: CP TECHNIQUE: 2D digital imaging was performed of the chest. Two images were obtained. PA and lateral views were obtained. COMPARISON: CR,XR XR CHEST 2V PA LATERAL from 09/28/2023 FINDINGS: MEDIASTINUM: Normal. HEART: Normal. PULMONARY VASCULATURE: Normal. LUNGS: Clear. PLEURAL SPACE: No pleural effusion or pneumothorax. BONE:Within normal limits for the patient's age. OTHER FINDINGS:Normal. IMPRESSION: No acute pulmonary findings. DATA REPOSITORY: RADIATION DOSE DELIVERED:
[2023-11-28 18:58] LABS: Troponin I < 50 ng/L (< or =60)
--- NOTE | 2023-11-28 19:06 | NUR.NOTE ---
Pt placed on care management referral list to establish primary care as soon as possible.
== END 2023-11-28 19:15 | disposition home or self-care (01) ==
PROVIDERS: Emergency Provider Emergency Medicine
DX: R07.9 Chest pain, unspecified (principal); R06.02 Shortness of breath; M54.2 Cervicalgia; M54.6 Pain in thoracic spine; M25.512 Pain in left shoulder
CPT/HCPCS: 80053; 93005; 96374; 99284; 71046; 83735; 84484; 85025; 85379; 93010; 99283; J1885

== ENCOUNTER 2023-12-19 13:38 | Emergency (ER) | payer MEDICARE, MEDICAID, SELFPAY ==
[2023-12-19] VITALS (22 sets, daily range): BP systolic 131–169; BP diastolic 63–85; PULSE 74–98; RESP 8–20; O2SAT 92–98
--- NOTE | 2023-12-19 13:30 | RT.EKG_ITS ---
APPROVED REPORT Exam: Resting ECG Reason for Exam: chest pain Patient Location: E HR:85 bpm ECG Measurements Heart Rate 85 AXIS WI 132 P 64 QRSd 85 QRS 68 QT 350 T 34 QTc 416 Conclusion Sinus rhythm 85 normal axis no stemi
--- NOTE | 2023-12-19 13:52 | ED.GENADUL_ITS ---
Discharge Plan Disposition Patient Disposition: Home Condition: Stable Discharge Details Clinical Impression: Chest pain Primary Care Provider: Unknown,Unknown ED Provider: Cecilia Ravi Home Meds and New Rx's Prescriptions: No Action celecoxib 200 mg capsule See Rx Instructions .ROUTE .COMPLEX Qty: 60 3RF Dose Instruction: TAKE 1 CAPSULE BY MOUTH TWICE DAILY NEEDED FOR PAIN Rx Instructions: TAKE 1 CAPSULE BY MOUTH TWICE DAILY NEEDED FOR PAIN aripiprazole 20 mg tablet 1 tab PO DAILY bupropion HCl 150 mg tablet extended release 24 hr 450 mg PO DAILY acetaminophen 500 mg tablet 1,000 mg PO TID PRN Discharge Instructions Instructions: Chest Pain (ED) Additional Instructions: Serial troponins negative in the emergency department. Your EKG is stable. This means that your chest pain is less likely from your heart. You still need to follow-up with your primary care doctor and get an outpatient stress test for full evaluation. Continue to decrease tobacco use. Return with any worsening s ymptoms or other concerns. HPI General Date/Time Provider Initiated Documentation: 12/19/23 13:51 . Limitations to Documentation: no limitations . Information obtained by: patient . HPI Narrative: 53-year-old female with past medical history of depression and arthritis presents for evaluation of chest pain. She reports onset while sitting on the couch. She reports a substernal squeezing sensation. Associated with shortness of breath. Not associated with nausea or diaphoresis. She reports that the symptoms have been present for the last few hours, they have been waxing and waning in intensity. No medications taken prior to arrival. She reports currently her pain is a 4 out of 10. She reports that she did have chest pain a month ago, but this feels very different than that type of pain she had. She states that she is currently on a nicotine patch and trying to quit smoking. Otherwise denies heart history, diabetes, recent surgery or travel. Related Data Home Medications Medication Instructions Recorded Confirmed aripiprazole 20 mg tablet 1 tab PO DAILY 03/03/22 12/19/23 bupropion HCl 150 mg 24 hr tablet, 450 mg PO DAILY 03/03/22 12/19/23 extended release celecoxib 200 mg capsule See Rx Instructions .Route 08/25/23 12/19/23 .COMPLEX #60 caps acetaminophen 500 mg tablet 1,000 mg PO TID PRN 05/16/24 06/06/24 Previous Rx's Medication Instructions Recorded celecoxib 200 mg capsule See Rx Instructions .Route 08/25/23 .COMPLEX #60 caps Allergies Allergy/AdvReac Type Severity Reaction Status Date / Time No Known Allergies Allergy Verified 12/19/23 13:46 General Stated Complaint: Chest Pain MARLENI: 2 Exam Narrative Exam Narrative: Review of Systems: All systems reviewed & are unremarkable except as noted in HPI and below Well-developed, no acute distress NCAT PERRL, normal conjunctiva RRR, no murmur No chest wall tenderness to palpation Unlabored respiratory effort, clear bilaterally Nondistended abdomen , soft nontender Extremities w/o deformity, no cyanosis, no edema No rashes or lesions. no focal neurologic deficits Appropriate mood and affect Course Vital Signs Vital signs: Vital Signs Pulse 95 H 12/19/23 13:42 Respiratory Rate 17 12/19/23 13:42 Blood Pressure 169/85 H 12/19/23 13:42 Pulse Oximetry 97 12/19/23 13:42 Pulse 95 H 12/19/23 13:42 Respiratory Rate 17 12/19/23 13:42 Respiratory Effort Normal 12/19/23 13:47 Respiratory Depth Normal 12/19/23 13:47 Respiratory Pattern Normal 12/19/23 13:47 Blood Pressure 169/85 H 12/19/23 13:42 Pulse Oximetry 97 12/19/23 13:42 Oxygen Delivery Method Room Air 12/19/23 13:42 Oxygen Flow Rate 0 12/19/23 13:42 Pain Level 7 12/19/23 13:42 Medical Decision Making Emergent evaluation of chest pain. Patient has risk factors including smoking and age. Her EKG does not demonstrate acute ischemic changes. Initial differential includes ACS, GERD, less likely pulmonary embolism or pneumonia, musculoskeletal pain. Patient is currently 4 out of 10 chest pain right now. Plan for cardiac monitoring, lab work to include cardiac biomarkers, aspirin and nitroglycerin to see if this alleviates the symptoms. 1500 labs reviewed, no elevation in trop. Ddimer negative, making DVT/ PE unlikey. No anemia anemia, normal white blood cell count. Creatinine at baseline. BNP is not elevated. Chest x-ray reviewed and independently interpreted : no focal consolidation, normal heart size, no pulmonary edema or pleural effusion. P atient remains asymptomatic at this time. Plan for repeat troponin 1700 Repeat troponin negative. Patient has no additional symptoms. At this time given her low risk and low heart score, patient is stable for discharge home with outpatient follow-up and outpatient stress testing. Return precautions advised. Discharged in good condition. Medical Records Medical records reviewed: Yes I reviewed the patient's medical records. Lab Data Lab results reviewed: Yes I reviewed the patient's lab results. Quality:SDOH Health Related Social Needs: Health related social needs details lack of PCP PFSH All Active Problems (Updated 12/19/23 @ 17:22 by Cecilia Ravi MD) Chest pain (Acute) Hoffa's fat pad disease (Acute) No-show for appointment (Acute) Medical History Arthritis Depression Surgical History Status post right partial knee replacement (09/26/22) History of shoulder surgery L shoulder impingment surgery History of carpal tunnel release of both wrists History of cholecystectomy History of hysterectomy Social History Smoking/Tobacco Use Status: Former Tobacco Use Quit Date: 04/27/20 Smoking risk assessment performed?: Yes Alcohol Intake: never Drug use: Never Substance use type: does not use Housing: house Current gender identity: female Do you feel safe at home: Yes Do you feel safe in your relationship?: Yes
[2023-12-19] MEDS: Aspirin 81 MG CHEW 324 MG CH (13:59)
--- NOTE | 2023-12-19 14:01 | DI.RAD_ITS ---
Exam(s) XR PORTABLE CHEST AP EXAM: XR PORTABLE CHEST AP CLINICAL HISTORY: chest pain. TECHNIQUE: 2D digital imaging was performed. COMPARISON: CR XR CHEST 2V PA LATERAL from 11/28/2023 FINDINGS: Single AP portable view. Heart size is upper normal. The mediastinum is not widened. Lungs are clear. No infiltrates nor obvious pleural effusions. IMPRESSION: No acute pulmonary findings on this single AP portable view of the chest. DATA REPOSITORY: RADIATION DOSE DELIVERED:
[2023-12-19 14:04] LABS: Abs Immature Grans 0.02 10^3/uL (0.0-0.06); Absolute Basophil Count 0.02 10^3/uL (0.0-0.2); Absolute Eosinophil Count 0.18 10^3/uL (0.0-0.7); Absolute Lymphocyte Count 2.61 10^3/uL (1.2-3.4); Absolute Monocyte Count 0.51 10^3/uL (0.1-0.8); Absolute Neutrophil Count 4.91 10^3/uL (1.2-6.7); Basophils % 0.2 %; Eosinophils % 2.2 %; HCT 41.4 % (36.0-46.0); HGB 13.8 g/dL (11.2-15.7); Immature Grans % 0.2 %; Lymphocytes % 31.6 %; MCH 28.9 pg (27.0-33.0); MCHC 33.3 % (32.0-36.0); MCV 87 fL (80-95); Monocytes % 6.2 %; Neutrophils % 59.6 %; Platelet Count 214 10^3/uL (130-400); RBC 4.77 10^6/uL (3.93-5.22); RDW 13.5 % (11.7-14.6); RDW-SD 43.8 fL; WBC 8.25 10^3/uL (4.4-10.8)
[2023-12-19 14:23] LABS: ALT 30 U/L (14-59); AST 18 U/L (15-37); Albumin 3.8 g/dL (3.4-5.0); Alkaline Phosphatase 151 U/L (46-116); Anion Gap 8.4 mmol/L (3-11); BUN 19 mg/dL (7-18); Bilirubin, Total 0.2 mg/dL (0.2-1.0); CO2 27.6 mmol/L (21.0-32.0); CREATININE 1.1 mg/dL (0.55-1.02); Chloride 105 mmol/L (98-107); Estimated GFR 60.84 (mL/min/1.73m2); Glucose 114 mg/dL (74-106); NT-proBNP 34 pg/mL (<300); Sodium 141 mmol/L (136-145); Total Protein 7.1 g/dL (6.4-8.2); Troponin I < 50 ng/L (< or =60)
[2023-12-19 15:22] LABS: D-Dimer 300 ng/mlFEU (<500)
[2023-12-19 17:12] LABS: Troponin I < 50 ng/L (< or =60)
== END 2023-12-19 17:28 | disposition home or self-care (01) ==
PROVIDERS: Emergency Provider Emergency Medicine
DX: R07.9 Chest pain, unspecified (principal); Z87.891 Personal history of nicotine dependence
CPT/HCPCS: 36415; 80053; 93005; 99285; 71045; 83880; 84484; 85025; 85379; 93010; 99284

== ENCOUNTER 2024-03-17 01:46 | Emergency (ER) | payer MEDICARE, MEDICAID, SELFPAY ==
[2024-03-17] VITALS (34 sets, daily range): BP systolic 100–131; BP diastolic 38–103; PULSE 56–88; RESP 0–27; O2SAT 95–99
--- NOTE | 2024-03-17 01:45 | RT.EKG_ITS ---
APPROVED REPORT Exam: Resting ECG Reason for Exam: chest pain Patient Location: E HR:70 bpm ECG Measurements Heart Rate 70 AXIS UT 141 P 59 QRSd 81 QRS 67 QT 394 T 47 QTc 426 Conclusion Sinus rhythm...normal P axis, V-rate 60- 99 Normal Electrocardiogram
--- NOTE | 2024-03-17 01:52 | ED.GENADUL_ITS ---
Discharge Plan Disposition Patient Disposition: Home Condition: Good Discharge Details Clinical Impression: Chest pain Primary Care Provider: Unknown,Unknown ED Provider: Wilton Butt and New Rx's Prescriptions: Continued aripiprazole 20 mg tablet 1 tab PO DAILY bupropion HCl 150 mg tablet extended release 24 hr 450 mg PO DAILY acetaminophen 500 mg tablet 1,000 mg PO TID PRN Discharge Instructions Instructions: Chest Pain, Adult ED Additional Instructions: You were seen for chest pain. Your evaluation in the ED is reassuring but you are strongly encouraged to follow-up with primary care and consider outpatient stress testing. Return to the ED for any new or worsening pain, shortness of breath, syncope, neurologic change, other concerns. HPI General Mode of arrival: ambulatory . Date/Time Provider Initiated Documentation: 03/17/24 01:47 . Limitations to Documentation: no limitations . Information obtained by: patient, RN notes reviewed and old records reviewed . HPI Narrative: Patient presents to the ED after waking up with chest pain around 11:30 PM. Patient reports chest pain is across to her chest but seems to be mostly lower substernal area. She has some mild nausea. She denies abdominal pain. She denies feeling short of breath. Denies any lightheadedness or diaphoresis. Denies any recent illness or injury. There is no leg pain or leg swelling. Patient has had recent previous visits to the ED for chest pain. She has not had follow-up with a primary care physician stating she did not have 1. She does report having 1 now. Related Data Home Medications ?Medication ?Instructions ?Recorded ?Confirmed aripiprazole 20 mg tablet 1 tab PO DAILY 03/03/22 03/17/24 bupropion HCl 150 mg 24 hr tablet, 450 mg PO DAILY 03/03/22 03/17/24 extended release acetaminophen 500 mg tablet 1,000 mg PO TID PRN 11/28/23 03/17/24 Allergies Allergy/AdvReac Type Severity Reaction Status Date / Time No Known Allergies Allergy Verified 03/17/24 01:56 General MARLENI: 2 Review of Systems Narrative: Per HPI Exam Narrative Exam Narrative: Const: WDWN female in NAD. VS per triage. HEENT: NC/AT. Normal facial exam. Neck: Supple. Trachea midline. Lungs: Normal respiratory effort. Lungs are clear. Cor: RRR without murmur. Good radial pulses. GI: Soft/ND/NT. Neuro: A+O x 3. Normal speech, mentation, gait. Cranial nerves II - XII grossly intact. No gross motor or sensory deficit. Ext: No C/C/E. No calf tenderness. Medical Decision Making Patient presenting to ED with complaint of chest pain which woke her up from sleep at 11:30 PM. It is not pleuritic in nature and she does not feel short of breath. It is not reproducible. It is associated with nausea. Her EKG is sinus rhythm with no acute ST changes noted. Patient has been here previously with negative chest pain workups. She has not however been able to follow-up with a primary care but has secured PCP at this point. IV, labs and chest imaging per D-dimer results. Patient's laboratory studies are unremarkable and essentially normal including D -dimer and troponin. Chest x-ray is ordered. Repeat troponin for 5 AM. Chest x-ray with no acute cardiopulmonary process per my read. Repeat troponin is negative. Patient is low risk by HEART score. She is encouraged to follow up with new PCP. Return precautions given. Medical Records Medical records reviewed: Yes I reviewed the patient's medical records. Imaging Data Radiologic Study: Attestation: I personally reviewed and interpreted this imaging study as follows: Imaging: X-Ray My impression: negative CXR Lab Data Lab results reviewed: Yes I reviewed the patient's lab results. ECG Data Attestation: I personally reviewed and interpreted this ECG (s) as follows: Prior ECG tracings: available for review Interpretation: see EKG PFSH All Active Problems (Updated 03/17/24 @ 05:58 by Wilton Butt MD) Chest pain (Acute) Hoffa's fat pad disease (Acute) No-show for appointment (Acute) Medical History Arthritis Depression Surgical History Status post right partial knee replacement (09/26/22) History of shoulder surgery L shoulder impingment surgery History of carpal tunnel release of both wrists History of cholecystectomy History of hysterectomy Social History Smoking/Tobacco Use Status: Former Tobacco Use Quit Date: 04/27/20 Smoking risk assessment performed?: Yes Alcohol Intake: never Drug use: Never Substance use type: does not use Housing: house Current gender identity: female Do you feel safe at home: Yes Do you feel safe in your relationship?: Yes
[2024-03-17] MEDS: Prochlorperazine 10 MG/2 ML VIAL IVP (02:17)
[2024-03-17] MEDS: Normal Saline 100 ML 300 ML (02:18)
[2024-03-17 02:31] LABS: ALT 27 U/L (14-59); AST 26 U/L (15-37); Albumin 3.7 g/dL (3.4-5.0); Alkaline Phosphatase 143 U/L (46-116); Anion Gap 7.1 mmol/L (3-11); BUN 12 mg/dL (7-18); Bilirubin, Total 0.25 mg/dL (0.2-1.0); CO2 28.9 mmol/L (21.0-32.0); Calcium 9.2 mg/dL (8.5-10.1); Chloride 106 mmol/L (98-107); Estimated GFR 68.21 (mL/min/1.73m2); Glucose 114 mg/dL (74-106); Magnesium 1.9 mg/dL (1.8-2.4); Potassium 4.3 mmol/L (3.5-5.1); Sodium 142 mmol/L (136-145); Total Protein 7.2 g/dL (6.4-8.2); Troponin I < 50 ng/L (< or =60)
--- NOTE | 2024-03-17 02:45 | DI.RAD_ITS ---
Exam(s) XR CHEST 2V PA LATERAL EXAM: XR CHEST 2V PA LATERAL CLINICAL HISTORY: CP TECHNIQUE: 2D digital imaging was performed of the chest. Two images were obtained. PA and lateral views were obtained. COMPARISON: CR XR CHEST 2V PA LATERAL from 11/28/2023 FINDINGS: MEDIASTINUM: Normal. HEART: Normal. PULMONARY VASCULATURE: Normal. LUNGS: Clear. PLEURAL SPACE: No pleural effusion or pneumothorax. BONE:Within normal limits for the patient's age. OTHER FINDINGS:Normal. IMPRESSION: No acute pulmonary findings. DATA REPOSITORY: RADIATION DOSE DELIVERED:
[2024-03-17 02:46] LABS: Abs Immature Grans 0.05 10^3/uL (0.0-0.06); Absolute Basophil Count 0.03 10^3/uL (0.0-0.2); Absolute Eosinophil Count 0.32 10^3/uL (0.0-0.7); Absolute Lymphocyte Count 3.36 10^3/uL (1.2-3.4); Absolute Monocyte Count 0.69 10^3/uL (0.1-0.8); Absolute Neutrophil Count 5.49 10^3/uL (1.2-6.7); Basophils % 0.3 %; Eosinophils % 3.2 %; HCT 42.9 % (36.0-46.0); HGB 14.1 g/dL (11.2-15.7); Immature Grans % 0.5 %; Lymphocytes % 33.8 %; MCH 28.3 pg (27.0-33.0); MCHC 32.9 % (32.0-36.0); MCV 86 fL (80-95); Monocytes % 6.9 %; Neutrophils % 55.3 %; Platelet Count 261 10^3/uL (130-400); RBC 4.98 10^6/uL (3.93-5.22); RDW 13.2 % (11.7-14.6); RDW-SD 41.1 fL; WBC 9.94 10^3/uL (4.4-10.8)
[2024-03-17 02:47] LABS: D-Dimer 408 ng/mlFEU (<500)
--- NOTE | 2024-03-17 03:58 | DI.VRAD_ITS ---
PROCEDURE INFORMATION: Exam: XR Chest Exam date and time: 03/17/2024 3:18 AM Age: 53 years old Clinical indication: Pain; Other: Cp TECHNIQUE: Imaging protocol: Radiologic exam of the chest. Views: 2 views. COMPARISON: CR XR PORTABLE CHEST AP 12/19/2023 1:59 PM FINDINGS: Lungs: Unremarkable. No consolidation. Pleural spaces: Unremarkable. No pleural effusion. No pneumothorax. Heart/Mediastinum: Unremarkable. No cardiomegaly. Bones/joints: Unremarkable. IMPRESSION: No acute findings. Dictated and Authenticated by: Alexis Nicholas MD. Ordering:CARRILLO Núñez MD
[2024-03-17 05:44] LABS: Troponin I < 50 ng/L (< or =60)
== END 2024-03-17 06:41 | disposition home or self-care (01) ==
PROVIDERS: Emergency Provider Emergency Medicine
DX: R07.9 Chest pain, unspecified (principal); R11.0 Nausea
CPT/HCPCS: 36415; 80053; 93005; 96374; 99284; 71046; 83735; 84484; 85025; 85379; 93010; 99283; J0780

== ENCOUNTER 2024-06-23 17:51 | Emergency (ER) | payer MEDICARE, MEDICAID, SELFPAY ==
[2024-06-23] VITALS (45 sets, daily range): BP systolic 96–140; BP diastolic 39–84; PULSE 61–93; RESP 10–27; TEMP 36.2; O2SAT 94–100
--- NOTE | 2024-06-23 17:45 | RT.EKG_ITS ---
APPROVED REPORT Exam: Resting ECG Reason for Exam: Chest Pain Patient Location: E HR:84 bpm ECG Measurements Heart Rate 84 AXIS MN 138 P 69 QRSd 83 QRS 80 QT 343 T 52 QTc 405 Conclusion Sinus rhythm. 84 NORMAL AXIS NO STEMI
[2024-06-23 18:35] LABS: Abs Immature Grans 0.03 10^3/uL (0.0-0.06); Absolute Basophil Count 0.03 10^3/uL (0.0-0.2); Absolute Eosinophil Count 0.24 10^3/uL (0.0-0.7); Absolute Lymphocyte Count 4.15 10^3/uL (1.2-3.4); Absolute Monocyte Count 0.68 10^3/uL (0.1-0.8); Absolute Neutrophil Count 5.14 10^3/uL (1.2-6.7); Basophils % 0.3 %; Eosinophils % 2.3 %; HGB 14.4 g/dL (11.2-15.7); Immature Grans % 0.3 %; Lymphocytes % 40.4 %; MCH 28.2 pg (27.0-33.0); MCHC 33.5 % (32.0-36.0); MCV 84 fL (80-95); MPV 10.9 fL (8.0-11.0); Monocytes % 6.6 %; Neutrophils % 50.1 %; Platelet Count 240 10^3/uL (130-400); RDW 13.2 % (11.7-14.6); RDW-SD 40.6 fL; WBC 10.27 10^3/uL (4.4-10.8)
[2024-06-23] MEDS: MORPHine 4 MG/ML SYR IVP (18:38)
[2024-06-23] MEDS: Famotidine 20 MG/2 ML VIAL IVP (18:39)
[2024-06-23 18:59] LABS: ALT 22 U/L (14-59); AST 12 U/L (15-37); Albumin 3.7 g/dL (3.4-5.0); Alkaline Phosphatase 151 U/L (46-116); Amylase 62 U/L (25-115); Anion Gap 8.8 mmol/L (3-11); BUN 22 mg/dL (7-18); Bilirubin, Total 0.16 mg/dL (0.2-1.0); CO2 27.2 mmol/L (21.0-32.0); CREATININE 1.1 mg/dL (0.55-1.02); Calcium 9.1 mg/dL (8.5-10.1); Chloride 105 mmol/L (98-107); Estimated GFR 60.84 (mL/min/1.73m2); Glucose 119 mg/dL (74-106); Lipase 31 U/L (<78); Magnesium 1.9 mg/dL (1.8-2.4); Sodium 141 mmol/L (136-145); Total Protein 7.3 g/dL (6.4-8.2); Troponin I 4 ng/L (<or=51)
[2024-06-23 19:19] LABS: Troponin I 5 ng/L (<or=51)
[2024-06-23] MEDS: Normal Saline - Diluent 50 ML VIAL IJ (19:20)
[2024-06-23] MEDS: Omnipaque 350 MG/ML 100 ML BTL IJ (19:21)
--- NOTE | 2024-06-23 19:26 | DI.CT_ITS ---
Exam(s) CT CHEST PE ABD PELVIS W EXAM: CT CHEST PE ABD PELVIS W CLINICAL HISTORY: chest pain, epigastric pain, radiating to back. TECHNIQUE: Imaging Protocol: Axial CT angiography was performed with multi-slice acquisition and m ulti-planar and/or 3D reconstructions. CONTRAST MATERIAL: Intravenous: Omnipaque 350 Contrast volume:100 ml Oral: None COMPARISON: No exams were available for comparison FINDINGS: CHEST: PULMONARY ARTERIES: There are no intra-arterial filling defects to suggest the presence of acute pulm onary emboli. LUNGS: There is no evidence of pulmonary infarction.No confluent infiltrates. There are no pleural e ffusions. MEDIASTINUM: There is no hilar nor mediastinal adenopathy. CARDIAC: Heart size is normal. There is no pericardial effusion. There is no significant shift of t he interventricular septum.Caliber of the thoracic aorta is within normal limits. No evidence of aor tic dissection. OSSEOUS: No significant osseous lesions.No fractures.. ABDOMEN: There is no ascites. LIVER: There are no focal hepatic lesions nor dilatation of intrahepatic ducts. However, there is so me air seen with in the CBD and intrahepatic ducts in the left hepatic lobe. There is CBD is not dil ated. GALLBLADDER/BILIARY: The gallbladder surgically absent. CBD is not dilated but is noted to contain a ir. PANCREAS: No evidence of pancreatic mass nor dilatation of the pancreatic duct. SPLEEN: Spleen is not enlarged. There are no intrasplenic lesions. Splenic and portal veins are howard nt. ADRENALS: There are no significant adrenal masses. KIDNEYS:No cysts evident. No calculi nor hydronephrosis. No solid renal masses. ABDOMINAL AORTA: Abdominal aorta is not enlarged. LYMPH NODES: There is no retroperitoneal or para-aortic adenopathy. ABDOMINAL WALL/GI: No evidence of significant anterior abdominal wall hernia. No bowel obstruction. PELVIS: LYMPH NODES: There is no intrapelvic nor inguinal adenopathy. GI: No evidence of appendicitis.There is sigmoid diverticuli but no evidence of acute diverticulitis. URINARY BLADDER: No calculi nor masses evident REPRODUCTIVE: Uterus is surgically absent. No abnormal adnexal masses. OSSEOUS: No fractures nor significant osseous lesions. IMPRESSION: 1. No evidence of acute pulmonary emboli nor pulmonary infarction. 2. There are no confluent pulmonary infiltrate nor pleural effusions. 3. The gallbladder surgically absent. The biliary tree is not dilated but there is pneumobilia with air seen within the upper CBD and intrahepatic ducts of the left hepatic lobe. Correlation with prio r instrumentation/ERCP history recommended. 4. The uterus is surgically absent. There are no abnormal adnexal masses. No free fluid in the pelv is. RADIATION DOSE DELIVERED: 640.55mGy.cm Total DLP DATA REPOSITORY: All CT scans at this facility are submitted to the National Radiology Data Registry (NRDR) Dose Index Registry (DIR) with the [employer] (A[employer]). RADIATION OPTIMIZATION: All CT scans at this facility use at least one of these dose optimization te chniques: automated exposure control; mA and/or kV adjustment per patient size (includes targeted exa ms where dose is matched to clinical indication); or iterative reconstruction.
[2024-06-23 21:26] LABS: Troponin I 5 ng/L (<or=51)
--- NOTE | 2024-06-23 21:26 | DI.VRAD_ITS ---
PROCEDURE INFORMATION: Exam: CTA Chest With Contrast Exam date and time: 06/23/2024 7:15 PM Age: 53 years old Clinical indication: Abdominal pain; Chest pressure; Patient HX: Chest pain, epigastric pain, radiating to back TECHNIQUE: Imaging protocol: Computed tomographic angiography of the chest with contrast. Exam focused on the arteries. 3D rendering (Not supervised by radiologist): MIP and/or 3D reconstructed images were created by the technologist. Radiation optimization: All CT scans at this facility use at least one of these dose optimization techniques: automated exposure control; mA and/or kV adjustment per patient size (includes targeted exams where dose is matched to clinical indication); or iterative reconstruction. Contrast material: [id number]; Contrast volume: 100 ml; Contrast route: INTRAVENOUS (IV); COMPARISON: CR XR CHEST 2V PA LATERAL 03/17/2024 3:18 AM FINDINGS: Pulmonary arteries: Normal. No pulmonary emboli. Aorta: No aortic aneurysm. Examination not tailored to specifically evaluate the aorta. Lungs: Mild bronchial wall thickening noted. No consolidation. No masses. Pleural spaces: No pneumothorax. No pleural effusion. Heart: No cardiomegaly. No pericardial effusion. Lymph nodes: No enlarged lymph nodes. Bones/joints: Unremarkable. No acute fracture. Soft tissues: Unremarkable. IMPRESSION: 1. No evidence of acute pulmonary embolism. 2. Mild bronchial wall thickening noted, which could represent acute versus chronic bronchial inflammation. Correlate with clinical history and clinical presentation. PROCEDURE INFORMATION: Exam: CT Abdomen And Pelvis With Contrast Exam date and time: 06/23/2024 7:15 PM Age: 53 years old Clinical indication: Abdominal pain; Chest pressure; Patient HX: Chest pain, epigastric pain, radiating to back TECHNIQUE: Imaging protocol: Computed tomography of the abdomen and pelvis with contrast. Radiation optimization: All CT scans at this facility use at least one of these dose optimization techniques: automated exposure control; mA and/or kV adjustment per patient size (includes targeted exams where dose is matched to clinical indication); or iterative reconstruction. Contrast material: [id number]; Contrast volume: 100 ml; Contrast route: INTRAVENOUS (IV); COMPARISON: CR XR CHEST 2V PA LATERAL 03/17/2024 3:18 AM FINDINGS: Liver: No hepatic seen. Gallbladder and biliary ducts: There is air noted common bile duct and intrahepatic biliary ducts, greatest left lobe. The patient is status post cholecystectomy. Pancreas: No ductal dilation. No pancreatic lesion seen. Spleen: The spleen is unremarkable. No splenomegaly. Adrenal glands: The adrenal glands are unremarkable. No defined mass. Kidneys and ureters: The kidneys are unremarkable. No hydronephrosis. Stomach and bowel: No evidence of bowel obstruction or acute bowel inflammation. There is sigmoid diverticulosis without acute diverticulitis. Appendix: No evidence of appendicitis. Intraperitoneal space: Unremarkable. No free air. No significant fluid collection. Vasculature: No abdominal aortic aneurysm. Lymph nodes: No enlarged lymph nodes. Urinary bladder: Unremarkable as visualized. Reproductive: Unremarkable as visualized. Bones/joints: Unremarkable. No acute fracture. Soft tissues: Unremarkable. IMPRESSION: 1. No evidence bowel obstruction or acute bowel inflammation. 2. Pneumobilia noted, which is nonspecific and could be postsurgical in nature. Clinical correlation recommended. Dictated and Authenticated by: Shua Nevarez MD. Ordering:QUANG Milan MD
--- NOTE | 2024-06-23 22:24 | ED.GENADUL_ITS ---
Discharge Plan Disposition Patient Disposition: Home Condition: Stable Discharge Details Clinical Impression: Acute epigastric pain Primary Care Provider: Unknown,Unknown ED Provider: Kayli Tanner Home Meds and New Rx's Prescriptions: Continued alprazolam 0.5 mg tablet 0.5 mg PO TID PRN tramadol 50 mg tablet 50 mg PO Q12H PRN methylphenidate HCl 20 mg tablet 20 mg PO DAILY pantoprazole 40 mg tablet,delayed release (DR/EC) 40 mg PO DAILY aripiprazole 20 mg tablet 1 tab PO DAILY bupropion HCl 150 mg tablet extended release 24 hr 450 mg PO DAILY acetaminophen 500 mg tablet 1,000 mg PO TID PRN Discharge Instructions Instructions: Abdominal Pain, Adult ED Additional Instructions: Steroid from spicy foods, acidic foods, tomato-based foods, fatty foods, and caffeine Follow-up with the surgeon listed below, he will likely perform an upper endoscopy to evaluate you for the cause of your pain Continue taking your pantoprazole and you may add Pepcid to your regimen as well Please return earlier should you have new or worsening complaints including fever, chills, or persistent pain Discharge Data Discharge Date/Time-TO BE ENTERED AT DEPARTURE: 06/23/24 22:47 HPI General Date/Time Provider Initiated Documentation: 06/23/24 18:21 . HPI Narrative: This 53-year-old female presents with epigastric pain she states she has had this in the past presents today secondary to a lasting longer than 1 hour. Started while she was at rest. She states she has had cardiac evaluation been told in the past that this is not cardiac in nature. She describes the pain is radiating through to her back. She has never had CT imaging or endoscopy for this. She has had cholecystectomy approximately 28 years ago. She denies known exacerbating or alleviating factors although occasionally in the past she says that food has elicited symptoms. Denies any chance of . Related Data Home Medications ?Medication ?Instructions ?Recorded ?Confirmed aripiprazole 20 mg tablet 1 tab PO DAILY 03/03/22 06/23/24 bupropion HCl 150 mg 24 hr tablet, 450 mg PO DAILY 03/03/22 06/23/24 extended release acetaminophen 500 mg tablet 1,000 mg PO TID PRN 11/28/23 06/23/24 alprazolam 0.5 mg tablet 0.5 mg PO TID PRN 06/23/24 06/23/24 methylphenidate HCl 20 mg tablet 20 mg PO DAILY 06/23/24 06/23/24 pantoprazole 40 mg tablet,delayed 40 mg PO DAILY 06/23/24 06/23/24 release tramadol 50 mg tablet 50 mg PO Q12H PRN 06/23/24 06/23/24 Allergies Allergy/AdvReac Type Severity Reaction Status Date / Time No Known Allergies Allergy Verified 06/23/24 18:07 General Stated Complaint: Chest Pain MARLENI: 2 Exam Narrative Exam Narrative: Alert and oriented 53-year-old female in acute distress,, lungs clear to auscultation, cardiac rate rhythm regular tenderness in the epigastrium and left upper quadrant without rebound or guarding no CVA tenderness, distal pulses intact, no abdominal bruit or pulsatile mass Course Vital Signs Vital signs: Vital Signs Temperature 36.2 C L 06/23/24 17:57 Pulse 88 06/23/24 17:57 Respiratory Rate 14 06/23/24 17:57 Blood Pressure 96/75 L 06/23/24 17:57 Pulse Oximetry 97 06/23/24 17:57 Temperature 36.2 C L 06/23/24 17:57 Temperature Source Temporal Artery Scan 06/23/24 17:57 Pulse 69 06/23/24 21:31 Pulse 68 06/23/24 21:31 Respiratory Rate 12 06/23/24 21:31 Respiratory Effort Normal, Non-Labored 06/23/24 20:54 Respiratory Depth Normal 06/23/24 20:54 Respiratory Pattern Normal 06/23/24 20:54 Blood Pressure 128/74 06/23/24 21:31 Blood Pressure Mean 91 06/23/24 21:31 Blood Pressure Position Supine 06/23/24 17:57 Pulse Oximetry 98 06/23/24 21:31 Oxygen Delivery Method Room Air 06/23/24 17:57 Oxygen Flow Rate 0 06/23/24 17:57 Pain Level 7 06/23/24 20:54 Lab/Test Results Lab/Test Results: Laboratory Tests Range/Units 06/23/24 06/23/24 06/23/24 18:04 18:58 21:02 WBC (4.4-10.8) 10^3/uL 10.27 RBC (3.93-5.22) 10^6/uL 5.10 Hgb (11.2-15.7) g/dL 14.4 Hct (36.0-46.0) % 43.0 MCV (80-95) fL 84 MCH (27.0-33.0) pg 28.2 MCHC (32.0-36.0) % 33.5 RDW (11.7-14.6) % 13.2 Plt Count (130-400) 10^3/uL 240 MPV (8.0-11.0) fL 10.9 Immature Gran % % 0.3 Neutrophils % % 50.1 Lymphocytes % % 40.4 Monocytes % % 6.6 Eosinophils % % 2.3 Basophils % % 0.3 Nucleated RBC % (0.0-0.3) % 0.0 Absolute Neutrophils (1.2-6.7) 10^3/uL 5.14 Absolute Lymphocytes (1.2-3.4) 10^3/uL 4.15 H Absolute Monocytes (0.1-0.8) 10^3/uL 0.68 Absolute Eosinophils (0.0-0.7) 10^3/uL 0.24 Absolute Basophils (0.0-0.2) 10^3/uL 0.03 Sodium (136-145) mmol/L 141 Potassium (3.5-5.1) mmol/L 4.0 Chloride (98-107) mmol/L 105 Carbon Dioxide (21.0-32.0) mmol/L 27.2 Anion Gap (3-11) mmol/L 8.8 BUN (7-18) mg/dL 22 H Creatinine (0.55-1.02) mg/dL 1.1 H Est GFR (CKD-EPI 2020) (mL/min/1.73m2) 60.84 Glucose (74-106) mg/dL 119 H Calcium (8.5-10.1) mg/dL 9.1 Magnesium (1.8-2.4) mg/dL 1.9 Total Bilirubin (0.2-1.0) mg/dL 0.16 L AST (15-37) U/L 12 L ALT (14-59) U/L 22 Alkaline Phosphatase (46-116) U/L 151 H Troponin I (<or=51) ng/L 4 5 5 Total Protein (6.4-8.2) g/dL 7.3 Albumin (3.4-5.0) g/dL 3.7 Amylase (25-115) U/L 62 Lipase (<78) U/L 31 Medical Decision Making 53-year-old female presenting in acute distress, given small amount of morphine, 4 mg and feeling symptomatically improved. Given recurrence of symptoms and lack of abdominal imaging with reproducible pain on exam and will agree CT abdomen and pelvis. CT abdomen and pelvis shows pneumobilia and biliary tract. Case is discussed with Dr. Umana, surgeon he will follow-up with patient in the outpatient setting. Her pain is resolved and she is resting comfortably in the room. She will continue on her Protonix at home. Return precautions reviewed and patient expressed understanding, no evidence of acute abdomen clinically. Diagnostic labs reviewed and reassuring, troponin negative, TSH negative, and EKG without evidence of ischemia, please see attendings documentation Quality:SDOH Health Related Social Needs: Health related social needs details lack of PCP PFSH All Active Problems (Updated 06/23/24 @ 22:25 by DEJUAN Lowe) Acute epigastric pain (Acute) Hoffa's fat pad disease (Acute) No-show for appointment (Acute) Medical History Arthritis Depression Surgical History Status post right partial knee replacement (09/26/22) History of shoulder surgery L shoulder impingment surgery History of carpal tunnel release of both wrists History of cholecystectomy History of hysterectomy Social History Smoking/Tobacco Use Status: Former Tobacco Use Quit Date: 04/27/20 Smoking risk assessment performed?: Yes Alcohol Intake: never Drug use: Never Substance use type: does not use Housing: house Current gender identity: female Do you feel safe at home: Yes Do you feel safe in your relationship?: Yes
== END 2024-06-23 22:47 | disposition home or self-care (01) ==
PROVIDERS: Emergency Provider Physician Assistant
DX: R10.13 Epigastric pain (principal); Z90.49 Acquired absence of other specified parts of digestive tract; Z90.710 Acquired absence of both cervix and uterus; Z87.891 Personal history of nicotine dependence
CPT/HCPCS: 36415; 71275; 74177; 80053; 83690; 93005; 96374; 96375; 99285; 82150; 83735; 84484; 85025; 93010; 99284; J2270; J3490

== ENCOUNTER → 2024-06-30 12:51 | Outpatient (BNVA) | payer MEDICARE, MEDICAID, SELFPAY | PROVIDERS: PCP Family Medicine; Referring Provider Family Medicine; Visit Provider Surgery | DX: K83.8 Other specified diseases of biliary tract (principal) | CPT/HCPCS: 99213 ==

== ENCOUNTER 2024-07-24 00:27 | Outpatient (CLI) | payer MEDICARE, MEDICAID, SELFPAY ==
--- NOTE | 2024-07-24 07:00 | DI.MRI_ITS ---
Exam(s) MR ABDOMEN WO EXAM: MR ABDOMEN WO CLINICAL HISTORY: Pneumobilia,K83.8 TECHNIQUE: Multiplanar multisequence MRI of the Abdomen was performed. COMPARISON: CT CT CHEST PE ABD PELVIS W from 06/23/2024 FINDINGS: Lung bases: Unremarkable. Liver: There is normal signal of the liver. No hepatic mass is seen. No biliary ductal dilatation i s present. Pancreas: Unremarkable. No evidence of a pancreatic mass or ductal dilatation. No peripancreatic flu id collection is seen. Gallbladder and Bile Ducts: Status post cholecystectomy. There is no biliary ductal dilatation or ch oledocholithiasis. The common duct measures 6 mm in diameter. Adrenals: Unremarkable. No evidence of an adrenal mass. Kidneys: The kidneys are normal in appearance. No renal mass is seen. No evidence of hydronephrosis . Spleen: Unremarkable. Bowel: No evidence of bowel obstruction or bowel wall thickening. Aorta: Unremarkable. Soft Tissues: Unremarkable. Bone: Unremarkable. Lymph Nodes: Unremarkable. IMPRESSION: 1. Status post cholecystectomy. No biliary ductal dilatation or choledocholithiasis. 2. Unremarkable pancreas no evidence of a pancreatic mass. DATA REPOSITORY:
== END 2024-07-24 00:47 ==
LOC: DI 00:27
PROVIDERS: PCP Family Medicine; Visit Provider Surgery
DX: K83.8 Other specified diseases of biliary tract (principal)
CPT/HCPCS: 74181

== ENCOUNTER 2024-08-05 19:20 | Emergency (ER) | payer MEDICARE, MEDICAID, SELFPAY ==
[2024-08-05] VITALS (32 sets, daily range): BP systolic 100–171; BP diastolic 37–67; PULSE 82–125; RESP 13–28; TEMP 36.8–36.9; O2SAT 91–100
--- NOTE | 2024-08-05 19:15 | RT.EKG_ITS ---
APPROVED REPORT Exam: Resting ECG Reason for Exam: sob Patient Location: E HR:81 bpm ECG Measurements Heart Rate 81 AXIS WV 144 P 69 QRSd 84 QRS 77 QT 348 T 68 QTc 406 Conclusion Sinus rhythm...normal P axis, V-rate 60- 99
--- NOTE | 2024-08-05 19:28 | ED.GENADUL_ITS ---
Discharge Plan Disposition Patient Disposition: Home Condition: Stable Discharge Details Clinical Impression: RSV infection Primary Care Provider: Pablito Bryant ED Provider: Tim Pinedo Home Meds and New Rx's Prescriptions: Continued lorazepam [Ativan] 1 mg tablet 1 mg PO DAILY PRN (Reason: anxiety) Qty: 1 0RF Rx Instructions: Take 1 tablet by mouth half an hour before your MRI. Do not drive while using this medication alprazolam 0.5 mg tablet 0.5 mg PO TID PRN tramadol 50 mg tablet 50 mg PO Q12H PRN methylphenidate HCl 20 mg tablet 20 mg PO DAILY pantoprazole 40 mg tablet,delayed release (DR/EC) 40 mg PO DAILY aripiprazole 20 mg tablet 1 tab PO DAILY bupropion HCl 150 mg tablet extended release 24 hr 450 mg PO DAILY acetaminophen 500 mg tablet 1,000 mg PO TID PRN Discharge Instructions Instructions: Respiratory Syncytial Virus, Adult (DC), Albuterol Additional Instructions: You were seen in the emergency department for your RSV infection, you have no evidence of low oxygen. We have provided you with an inhaler to go home with, please monitor your oxygen at home and return for any levels around 88% consistently. Please use therapeutic dosing of Tylenol (acetamenophen) & Advil (ibuprofen) in an alternating fashion as follows: Take 1000mg of Tylenol every 6 hours without missing doses- that is 4 times per day. [place] in between the Tylenol dosings, take 400-600mg of Advil also on a 6 hour schedule, that is also 4 times per day. The daily maximum dosing of Tylenol is 4000mg, and the daily maximum dosing of Advil is 2400mg. This is safe to do for weeks. Please note that some common cold medications & prescription pain medications may contain acetamenophen and you need to read OTC drug labels and factor that in to maximum daily dosings. Referrals: Pablito Bryant [Primary Care Provider] - HPI General Date/Time Provider Initiated Documentation: 08/05/24 19:28 . HPI Narrative: 53 year-old female presents to ED today by POV/ambulating with a chief complaint of difficulty breathing, has been sick for 5 days. Quality described as chills/fever, shortness of breath, no radiation to chest pain, profound lethargy, nausea/vomiting, diarrhea, black/bloody stools, syncope. Severity is described as moderate to severe. Palliating factors include nothing specific att empted- no Tylenol or ibuprofen on board today. Provoking factors include nothing specific. Events leading up to the incident/Associated Symptoms: Patients granddaughters are also sick. Patient not anticoagulated. Related Data Home Medications ?Medication ?Instructions ?Recorded ?Confirmed aripiprazole 20 mg tablet 1 tab PO DAILY 03/03/22 08/05/24 bupropion HCl 150 mg 24 hr tablet, 450 mg PO DAILY 03/03/22 08/05/24 extended release acetaminophen 500 mg tablet 1,000 mg PO TID PRN 11/28/23 08/05/24 alprazolam 0.5 mg tablet 0.5 mg PO TID PRN 06/23/24 08/05/24 methylphenidate HCl 20 mg tablet 20 mg PO DAILY 06/23/24 08/05/24 pantoprazole 40 mg tablet,delayed 40 mg PO DAILY 06/23/24 08/05/24 release tramadol 50 mg tablet 50 mg PO Q12H PRN 06/23/24 08/05/24 lorazepam 1 mg tablet (Ativan) 1 mg PO DAILY PRN anxiety #1 tab 07/03/24 08/05/24 Previous Rx's ?Medication ?Instructions ?Recorded lorazepam 1 mg tablet (Ativan) 1 mg PO DAILY PRN anxiety #1 tab 07/03/24 Allergies Allergy/AdvReac Type Severity Reaction Status Date / Time No Known Allergies Allergy Verified 08/05/24 19:28 General Stated Complaint: RespSymp MARLENI: 3 Review of Systems All systems reviewed & are unremarkable except as noted in HPI and below Exam Narrative Exam Narrative: GENERAL APPEARANCE: Well-nourished, non-toxic, awake and alert, atraumatic, no acute distress. SKIN: Warm, pink, dry, intact, without rashes/lesions/ulcerations. HEAD: Normocephalic, atraumatic, normal hair distribution for gender/age. EYES: Normal conjunctiva, no exudates on lids/lashes. ENT: Nares patent, no circumoral cyanosis, no facial swelling NECK: Supple, trachea midline, painless cervical ROM. LUNGS/CHEST: Lungs CTA bilaterally- no rhonchi/rales/wheezes diffusely, labored respirations, normal A/P diameter, symmetrical expansion, no chest wall deformity HEART (CV/PV): Regular rate and rhythm without murmur, no peripheral edema, no JVD. ABDOMEN: Soft, non-distended, no guarding, no tenderness. MSK: Normal ROM, no swelling/deformity to bilateral UEs or LEs, moving all extremities without weakness, no cyanosis, spine midline without tenderness, normal curvature. NEURO: Mental Status AAOx4 - alert to person, place, time, events No facial droop, no forehead involvement. Motor: No focal weakness - strength 5/5 in bilateral UEs and LEs, proximal and distal, symmetric. Sensory: sensation intact to light touch globally. Gait normal: patient ambulated without ataxia into ED room. PSYCH: euthymic, cooperative, pleasant, appropriate speech Course Vital Signs Vital signs: Vital Signs Temperature 36.8 C 08/05/24 19:23 Pulse 87 08/05/24 19:23 Respiratory Rate 20 08/05/24 19:23 Blood Pressure 171/64 H 08/05/24 19:23 Pulse Oximetry 100 08/05/24 19:23 Temperature 36.8 C 08/05/24 19:23 Pulse 87 08/05/24 19:23 Respiratory Rate 20 08/05/24 19:23 Blood Pressure 171/64 H 08/05/24 19:23 Blood Pressure Position Supine 08/05/24 19:23 Pulse Oximetry 100 08/05/24 19:23 Oxygen Delivery Method Room Air 08/05/24 19:23 Oxygen Flow Rate 0 08/05/24 19:23 Pain Level 4 08/05/24 19:23 Medical Decision Making This dictation utilizes wsihi-jo-stat dictation software and may contain unedited grammatical errors. 53 year-old female presents to ED today by POV/ambulating with a chief complaint of difficulty breathing, has been sick for 5 days. Quality described as chills/fever, shortness of breath, no radiation to chest pain, profound lethargy, nausea/vomiting, diarrhea, black/bloody stools, syncope. Severity is described as moderate to severe. Palliating factors include nothing specific attempted- no Tylenol or ibuprofen on board today. Provoking factors include nothing specific. Events leading up to the incident/Associated Symptoms: Patients granddaughters are also sick. Patients' medical history: Noncontributory. Family and social history: Non-smoker. Pertinent exam findings / vital signs include lungs CTA, mildly labored respirations, no hypoxia, benign abdomen, nontoxic. Differential / pathologies of concern include viral syndrome, URI, less likely pneumonia, unlikely sepsis, not hypoxic respiratory failure. Diagnostic studies of: -CBC, CMP, VBG, magnesium, troponin, respiratory panel PCR swab, EKG, chest x- ray. -CBC shows no leukocytosis -CMP shows no actionable abnormality -Magnesium within normal limits -Troponin negative -VBG shows compensated respiratory alkalosis -Respiratory panel swab shows positive for RSV -EKG without ectopy, no signs of ischemia -Chest x-ray shows bronchitis Interventions of: -IV Tylenol, Toradol, 9 mL DuoNeb, albuterol inhaler to go. ED Course/Assessment/Plan: 53-year-old female presents with labored respirations and a viral syndrome, positive for RSV, nonhypoxic on arrival, 100% on room air on discharge, counseled on regular use of Tylenol and ibuprofen provided inhaler to go, strict return criteria for acute worsening advised to get an SpO2 monitor to monitor yourself at home. Findings not consistent with hypoxic respiratory failure, pneumonia, sepsis. Disposition of RSV infection. Patient verbalized understanding of the plan and return to ED criteria and engaged in shared decision making. Medical Records Medical records reviewed: Yes I reviewed the patient's medical records. Imaging Data Radiologic Study: Attestation: I personally reviewed and interpreted this imaging study as follows: Imaging: X-Ray Radiologist's impression: Exam: XR Chest Exam date and time: 08/05/2024 21:36 Age: 53 years old Clinical indication: Cough TECHNIQUE: Imaging protocol: Radiologic exam of the chest. Views: 2 views. COMPARISON: CT CHEST PE ABD PELVIS W 06/23/2024 19:15 FINDINGS: Lungs: Mild central interstitial thickening. No airspace consolidation. Pleural spaces: No pleural effusion. No pneumothorax. Heart/Mediastinum: No cardiomegaly. Bones/joints: No acute fracture. IMPRESSION: Interstitial disease suggesting bronchitis. Dictated and Authenticated by: Deborah Patel MD. Lab Data Lab results reviewed: Yes I reviewed the patient's lab results. Labs: Laboratory Tests Range/Units 08/05/24 08/05/24 19:25 19:52 WBC (4.4-10.8) 10^3/uL 8.13 RBC (3.93-5.22) 10^6/uL 4.88 Hgb (11.2-15.7) g/dL 13.6 Hct (36.0-46.0) % 41.1 MCV (80-95) fL 84 MCH (27.0-33.0) pg 27.9 MCHC (32.0-36.0) % 33.1 RDW (11.7-14.6) % 13.8 Plt Count (130-400) 10^3/uL 212 MPV (8.0-11.0) fL 10.7 Immature Gran % % 0.2 Neutrophils % % 62.0 Lymphocytes % % 25.8 Monocytes % % 8.9 Eosinophils % % 2.7 Basophils % % 0.4 Nucleated RBC % (0.0-0.3) % 0.0 Absolute Neutrophils (1.2-6.7) 10^3/uL 5.04 Absolute Lymphocytes (1.2-3.4) 10^3/uL 2.10 Absolute Monocytes (0.1-0.8) 10^3/uL 0.72 Absolute Eosinophils (0.0-0.7) 10^3/uL 0.22 Absolute Basophils (0.0-0.2) 10^3/uL 0.03 VBG pH (7.31-7.41) 7.44 H VBG pCO2 (41-51) mmHg 38 L VBG pO2 mmHg 46 VBG HCO3 (23-28) mmol/L 26 VBG Total CO2 (24-29) mmol/L 23 L VBG O2 Saturation % 84 VBG Base Excess (-2-3) mmol/L 2 Sodium (136-145) mmol/L 143 Potassium (3.5-5.1) mmol/L 3.9 Chloride (98-107) mmol/L 108 H Carbon Dioxide (21.0-32.0) mmol/L 28.3 Anion Gap (3-11) mmol/L 6.7 BUN (7-18) mg/dL 15 Creatinine (0.55-1.02) mg/dL 1.0 Est GFR (CKD-EPI 2020) (mL/min/1.73m2) 68.21 Glucose (74-106) mg/dL 119 H Calcium (8.5-10.1) mg/dL 9.4 Magnesium (1.8-2.4) mg/dL 1.9 Total Bilirubin (0.2-1.0) mg/dL 0.15 L AST (15-37) U/L 14 L ALT (14-59) U/L 20 Alkaline Phosphatase (46-116) U/L 156 H Troponin I (<or=51) ng/L 7 Total Protein (6.4-8.2) g/dL 6.7 Albumin (3.4-5.0) g/dL 3.3 L COVID-19 Source NASOPHARYNX SARS-CoV-2 (PCR) (Negative) Negative Influenza Type A (PCR) (Negative) Negative Influenza Type B (PCR) (Negative) Negative RSV (PCR) (Negative) Positive A* Quality:SDOH Health Related Social Needs: Health related social needs details lack of PCP PFSH All Active Problems (Updated 08/05/24 @ 21:14 by DEJUAN Cotter) RSV infection (Acute) Pneumobilia (Acute) Hoffa's fat pad disease (Acute) No-show for appointment (Acute) Medical History Arthritis Depression Surgical History Status post right partial knee replacement (09/26/22) History of shoulder surgery L shoulder impingment surgery History of carpal tunnel release of both wrists History of cholecystectomy History of hysterectomy Social History Smoking/Tobacco Use Status: Former Tobacco Use Quit Date: 04/27/20 Smoking risk assessment performed?: Yes Alcohol Intake: never Drug use: Never Substance use type: does not use Housing: house Current gender identity: female Do you feel safe at home: Yes Do you feel safe in your relationship?: Yes
[2024-08-05] MEDS: Albuterol/Ipratropium 3 ML UPD VIAL 9 ML UPD (19:57)
[2024-08-05 19:59] LABS: BE (Venous) 2 mmol/L (-2-3); HCO3 (Venous) 26 mmol/L (23-28); O2 Sat (Venous) 84 %; TCO2 (Venous) 23 mmol/L (24-29); pCO2 (Venous) 38 mmHg (41-51); pH (Venous) 7.44 (7.31-7.41); pO2 (Venous) 46 mmHg
[2024-08-05] MEDS: Ketorolac 15 MG/ML VIAL IVP (19:59)
[2024-08-05] MEDS: ACETAMINOPHEN 1,000 MG/100 ML BAG 400 MG IVPB (20:00)
[2024-08-05 20:01] LABS: Abs Immature Grans 0.02 10^3/uL (0.0-0.06); Absolute Basophil Count 0.03 10^3/uL (0.0-0.2); Absolute Eosinophil Count 0.22 10^3/uL (0.0-0.7); Absolute Monocyte Count 0.72 10^3/uL (0.1-0.8); Absolute Neutrophil Count 5.04 10^3/uL (1.2-6.7); Basophils % 0.4 %; Eosinophils % 2.7 %; HCT 41.1 % (36.0-46.0); HGB 13.6 g/dL (11.2-15.7); Immature Grans % 0.2 %; Lymphocytes % 25.8 %; MCH 27.9 pg (27.0-33.0); MCHC 33.1 % (32.0-36.0); MCV 84 fL (80-95); MPV 10.7 fL (8.0-11.0); Monocytes % 8.9 %; Platelet Count 212 10^3/uL (130-400); RBC 4.88 10^6/uL (3.93-5.22); RDW 13.8 % (11.7-14.6); RDW-SD 42.9 fL; WBC 8.13 10^3/uL (4.4-10.8)
[2024-08-05 20:13] LABS: COVID-19 PCR Negative (Negative); Influenza A PCR Negative (Negative); Influenza B PCR Negative (Negative)
[2024-08-05 20:15] LABS: RSV PCR Positive (Negative); Source NASOPHARYNX
[2024-08-05 20:16] LABS: ALT 20 U/L (14-59); AST 14 U/L (15-37); Albumin 3.3 g/dL (3.4-5.0); Alkaline Phosphatase 156 U/L (46-116); Anion Gap 6.7 mmol/L (3-11); BUN 15 mg/dL (7-18); Bilirubin, Total 0.15 mg/dL (0.2-1.0); CO2 28.3 mmol/L (21.0-32.0); Calcium 9.4 mg/dL (8.5-10.1); Chloride 108 mmol/L (98-107); Estimated GFR 68.21 (mL/min/1.73m2); Glucose 119 mg/dL (74-106); Magnesium 1.9 mg/dL (1.8-2.4); Potassium 3.9 mmol/L (3.5-5.1); Sodium 143 mmol/L (136-145); Total Protein 6.7 g/dL (6.4-8.2)
[2024-08-05 20:21] LABS: Troponin I 7 ng/L (<or=51)
--- NOTE | 2024-08-05 21:00 | DI.RAD_ITS ---
Exam(s) XR CHEST 2V PA LATERAL EXAM: XR CHEST 2V PA LATERAL CLINICAL HISTORY: cough. TECHNIQUE: 2D digital imaging was performed. COMPARISON: CR,XR XR CHEST 2V PA LATERAL from 03/17/2024 FINDINGS: 2 views: Heart size is normal. The mediastinum is not widened. Lungs are clear. No infiltrates nor pleural effusions. IMPRESSION: No acute pulmonary findings. DATA REPOSITORY: RADIATION DOSE DELIVERED:
--- NOTE | 2024-08-05 21:58 | DI.VRAD_ITS ---
PROCEDURE INFORMATION: Exam: XR Chest Exam date and time: 08/05/2024 21:36 Age: 53 years old Clinical indication: Cough TECHNIQUE: Imaging protocol: Radiologic exam of the chest. Views: 2 views. COMPARISON: CT CHEST PE ABD PELVIS W 06/23/2024 19:15 FINDINGS: Lungs: Mild central interstitial thickening. No airspace consolidation. Pleural spaces: No pleural effusion. No pneumothorax. Heart/Mediastinum: No cardiomegaly. Bones/joints: No acute fracture. IMPRESSION: Interstitial disease suggesting bronchitis. Dictated and Authenticated by: Deborah Patel MD. Ordering:ENIO Dumont MD
[2024-08-05] MEDS: Albuterol HFA 8 GM 60 PUFF INH IH (22:23)
== END 2024-08-05 22:24 | disposition home or self-care (01) ==
PROVIDERS: Emergency Provider Physician Assistant; PCP Family Medicine
DX: R06.02 Shortness of breath (principal); R11.2 Nausea with vomiting, unspecified; R19.7 Diarrhea, unspecified; B33.8 Other specified viral diseases
CPT/HCPCS: 80053; 82805; 87637; 93005; 94640; 96374; 96375; 99284; 71046; 83735; 84484; 85025; 93010; J0131; J1885; J7620

== ENCOUNTER 2024-08-18 07:56 | Emergency (ER) | payer MEDICARE, MEDICAID, SELFPAY ==
[2024-08-18] VITALS (18 sets, daily range): BP systolic 125–150; BP diastolic 60–84; PULSE 69–96; RESP 13–26; TEMP 36.7–36.8; O2SAT 94–100
--- NOTE | 2024-08-18 08:15 | DI.RAD_ITS ---
Exam(s) XR CHEST 2V PA LATERAL EXAM: XR CHEST 2V PA LATERAL CLINICAL HISTORY: chest pain TECHNIQUE: 2D digital imaging was performed. Two views. COMPARISON: CR,XR XR CHEST 2V PA LATERAL from 08/05/2024 FINDINGS: HEART: Normal size. Aorta: Not dilated. PULMONARY VASCULATURE: Normal. MEDIASTINUM: Unremarkable. LUNGS: Clear. PLEURAL SPACE: No pleural effusion or pneumothorax. BONE:Unremarkable for age. SOFT TISSUES: Unremarkable. IMPRESSION: No acute abnormality. DATA REPOSITORY: RADIATION DOSE DELIVERED:
[2024-08-18 09:05] LABS: Abs Immature Grans 0.05 10^3/uL (0.0-0.06); Absolute Basophil Count 0.03 10^3/uL (0.0-0.2); Absolute Eosinophil Count 0.14 10^3/uL (0.0-0.7); Absolute Lymphocyte Count 2.32 10^3/uL (1.2-3.4); Absolute Neutrophil Count 6.18 10^3/uL (1.2-6.7); Basophils % 0.3 %; Eosinophils % 1.5 %; HCT 43.1 % (36.0-46.0); HGB 13.9 g/dL (11.2-15.7); Immature Grans % 0.5 %; Lymphocytes % 25.4 %; MCH 27.1 pg (27.0-33.0); MCHC 32.3 % (32.0-36.0); MCV 84 fL (80-95); MPV 10.1 fL (8.0-11.0); Monocytes % 4.4 %; Neutrophils % 67.9 %; Platelet Count 288 10^3/uL (130-400); RBC 5.12 10^6/uL (3.93-5.22); RDW 13.9 % (11.7-14.6); RDW-SD 42.8 fL; WBC 9.12 10^3/uL (4.4-10.8)
[2024-08-18] MEDS: Dexamethasone 10 MG/ML VIAL 6 MG IVP (09:22)
[2024-08-18] MEDS: Albuterol/Ipratropium 3 ML UPD VIAL UPD ×2 (09:22→09:50)
[2024-08-18] MEDS: Acetaminophen 325 MG TAB 650 MG PO (09:22)
[2024-08-18] MEDS: Ketorolac 15 MG/ML VIAL 7.5 MG IVP (09:23)
[2024-08-18 09:27] LABS: ALT 22 U/L (14-59); AST 12 U/L (15-37); Albumin 3.6 g/dL (3.4-5.0); Alkaline Phosphatase 153 U/L (46-116); Anion Gap 5.9 mmol/L (3-11); BUN 10 mg/dL (7-18); Bilirubin, Total 0.22 mg/dL (0.2-1.0); CO2 29.1 mmol/L (21.0-32.0); Calcium 9.6 mg/dL (8.5-10.1); Chloride 105 mmol/L (98-107); Estimated GFR 68.21 (mL/min/1.73m2); Glucose 117 mg/dL (74-106); Lipase 25 U/L (<78); Magnesium 1.8 mg/dL (1.8-2.4); Potassium 4.1 mmol/L (3.5-5.1); Sodium 140 mmol/L (136-145); Total Protein 7.3 g/dL (6.4-8.2); Troponin I 4 ng/L (<or=51)
[2024-08-18 10:27] LABS: Troponin I < 4 ng/L (<or=51)
--- NOTE | 2024-08-18 11:01 | ED.GENADUL_ITS ---
Discharge Plan Disposition Patient Disposition: Home Condition: Stable Discharge Details Clinical Impression: Bronchitis Primary Care Provider: Pablito Bryant ED Provider: Kayli Tanner Home Meds and New Rx's Prescriptions: New fluticasone propionate 250 mcg/actuation blister with device 2 inh inhalation BID Qty: 60 0RF prednisone 20 mg tablet 40 mg PO DAILY Qty: 10 0RF Continued alprazolam 0.5 mg tablet 0.5 mg PO TID PRN tramadol 50 mg tablet 50 mg PO Q12H PRN methylphenidate HCl 20 mg tablet 20 mg PO DAILY pantoprazole 40 mg tablet,delayed release (DR/EC) 40 mg PO DAILY aripiprazole 20 mg tablet 1 tab PO DAILY bupropion HCl 150 mg tablet extended release 24 hr 450 mg PO DAILY acetaminophen 500 mg tablet 1,000 mg PO TID PRN Discharge Instructions Instructions: Acute bronchitis Additional Instructions: take prednisone daily Increase fluids. use flovent twice daily and albutero. 2 puffs every 4-6 hours as needed for cough, wheeze, and shortness of breath Continue with supportive care, Motrin Tylenol Recheck with primary care physician in 48 to 72 hours return earlier should you have new or worsening complaints your tests today were reassuring including your chest x-ray and diagnostic blood work Referrals: Pablito Bryant [Primary Care Provider] - 2 days HPI General Date/Time Provider Initiated Documentation: 08/18/24 08:10 . HPI Narrative: The patient is an otherwise healthy, 53-year-old female presenting with a recent diagnosis of infection. She has been engaging in supportive care at home and presents today secondary to a sore throat that started 2 days prior to arrival with subsequent chest pain. She reports a sore throat that started 2 days prior to arrival with subsequent chest pain. She does not endorse any fever or chills. Her upper respiratory symptoms have improved. She does not endorse any exacerbating or alleviating factors. She has had numerous outpatient evaluations for chest pain, all of which have been negative, including a stress test. She does not smoke tobacco and does not endorse a history of asthma. Related Data Home Medications ?Medication ?Instructions ?Recorded ?Confirmed aripiprazole 20 mg tablet 1 tab PO DAILY 03/03/22 08/18/24 bupropion HCl 150 mg 24 hr tablet, 450 mg PO DAILY 03/03/22 08/18/24 extended release acetaminophen 500 mg tablet 1,000 mg PO TID PRN 11/28/23 08/18/24 alprazolam 0.5 mg tablet 0.5 mg PO TID PRN 06/23/24 08/18/24 methylphenidate HCl 20 mg tablet 20 mg PO DAILY 06/23/24 08/18/24 pantoprazole 40 mg tablet,delayed 40 mg PO DAILY 06/23/24 08/18/24 release tramadol 50 mg tablet 50 mg PO Q12H PRN 06/23/24 08/18/24 fluticasone propionate 250 2 inh inhalation BID #60 ea 08/18/24 mcg/actuation blister powder for inhalation prednisone 20 mg tablet 40 mg (2 x 20 mg) PO DAILY #10 tabs 08/18/24 Previous Rx's ?Medication ?Instructions ?Recorded fluticasone propionate 250 2 inh inhalation BID #60 ea 08/18/24 mcg/actuation blister powder for inhalation prednisone 20 mg tablet 40 mg (2 x 20 mg) PO DAILY #10 tabs 08/18/24 Allergies Allergy/AdvReac Type Severity Reaction Status Date / Time No Known Allergies Allergy Verified 08/18/24 08:02 General Stated Complaint: RespSymp MARLENI: 4 Exam Narrative Exam Narrative: Appearance: The patient is alert, oriented, and anxious. Vital signs: Within normal limits. HEENT: Oropharynx is patent, uvula is midline, mild erythema present, no redness noted. Respiratory: There is increased work of breathing. Lungs are clear to auscultation. Gastrointestinal: No abdominal tenderness. Extremities: No peripheral edema. Skin: Warm and dry, no rash. Neurological: No meningismus in the neck. Psychiatric: The patient is anxious. Course Vital Signs Vital signs: Vital Signs Temperature 36.8 C 08/18/24 08:01 Pulse 77 08/18/24 08:01 Respiratory Rate 26 H 08/18/24 08:01 Blood Pressure 125/80 08/18/24 08:01 Pulse Oximetry 98 08/18/24 08:01 Temperature 36.7 C 08/18/24 11:00 Temperature Source Oral 08/18/24 08:01 Pulse 89 08/18/24 10:50 Pulse 88 08/18/24 10:50 Respiratory Rate 17 08/18/24 10:50 Respiratory Effort Non-Labored 08/18/24 08:17 Respiratory Depth Normal 08/18/24 08:17 Blood Pressure 126/65 08/18/24 10:46 Blood Pressure Mean 85 08/18/24 10:46 Blood Pressure Position Sitting 08/18/24 08:01 Pulse Oximetry 95 08/18/24 10:50 Oxygen Delivery Method Room Air 08/18/24 08:01 Oxygen Flow Rate 0 08/18/24 08:01 Pain Level 8 08/18/24 11:00 Lab/Test Results Lab/Test Results: Laboratory Tests Range/Units 08/18/24 08/18/24 08:55 09:55 WBC (4.4-10.8) 10^3/uL 9.12 RBC (3.93-5.22) 10^6/uL 5.12 Hgb (11.2-15.7) g/dL 13.9 Hct (36.0-46.0) % 43.1 MCV (80-95) fL 84 MCH (27.0-33.0) pg 27.1 MCHC (32.0-36.0) % 32.3 RDW (11.7-14.6) % 13.9 Plt Count (130-400) 10^3/uL 288 MPV (8.0-11.0) fL 10.1 Immature Gran % % 0.5 Neutrophils % % 67.9 Lymphocytes % % 25.4 Monocytes % % 4.4 Eosinophils % % 1.5 Basophils % % 0.3 Nucleated RBC % (0.0-0.3) % 0.0 Absolute Neutrophils (1.2-6.7) 10^3/uL 6.18 Absolute Lymphocytes (1.2-3.4) 10^3/uL 2.32 Absolute Monocytes (0.1-0.8) 10^3/uL 0.40 Absolute Eosinophils (0.0-0.7) 10^3/uL 0.14 Absolute Basophils (0.0-0.2) 10^3/uL 0.03 Sodium (136-145) mmol/L 140 Potassium (3.5-5.1) mmol/L 4.1 Chloride (98-107) mmol/L 105 Carbon Dioxide (21.0-32.0) mmol/L 29.1 Anion Gap (3-11) mmol/L 5.9 BUN (7-18) mg/dL 10 Creatinine (0.55-1.02) mg/dL 1.0 Est GFR (CKD-EPI 2020) (mL/min/1.73m2) 68.21 Glucose (74-106) mg/dL 117 H Calcium (8.5-10.1) mg/dL 9.6 Magnesium (1.8-2.4) mg/dL 1.8 Total Bilirubin (0.2-1.0) mg/dL 0.22 AST (15-37) U/L 12 L ALT (14-59) U/L 22 Alkaline Phosphatase (46-116) U/L 153 H Troponin I (<or=51) ng/L 4 < 4 Total Protein (6.4-8.2) g/dL 7.3 Albumin (3.4-5.0) g/dL 3.6 Lipase (<78) U/L 25 Medical Decision Making Initial Assessment: 53-year-old female presenting with sore throat and subsequent chest pain. No fever or chills. Upper respiratory symptoms improved. No exacerbating or alleviating factors. Numerous negative outpatient evaluations for chest pain, including a stress test. No tobacco use or history of asthma. ED Course: - Ordered chest x-ray, troponin, CBC, CMP, lipase. - Administered DuoNeb, Decadron IV, Tylenol, and Toradol IV. Final Assessment: Patient presented with sore throat and chest pain. Diagnostic tests and treatments were administered, including chest x-ray, troponin, CBC, CMP, lipase, DuoNeb, Decadron IV, Tylenol, and Toradol IV. Patient reports that her symptoms have improved dramatically, she has not hypoxic or tachypneic anymore and she is requesting discharge home. She is tolerating p.o. and ambu latory with steady gait. I suspect she has some bronchial inflammation from her RSV and I will order Flovent and prednisone for home use. Clinical Impression: - Chest pain MDM Components Evaluation: - Number of Differential Diagnoses or Management Options: Chest pain - Amount and Complexity of Data Reviewed: Chest x-ray, troponin, CBC, CMP, lipase - Risk of Complication and Morbidity or Mortality: Moderate due to chest pain and need for multiple diagnostic tests and treatments. Quality:[facility] Health Related Social Needs: Health related social needs details lack of PCP PFSH All Active Problems (Updated 08/18/24 @ 10:47 by DEJUAN Lowe) Bronchitis (Acute) RSV infection (Acute) Pneumobilia (Acute) Hoffa's fat pad disease (Acute) No-show for appointment (Acute) Medical History Arthritis Depression Surgical History Status post right partial knee replacement (09/26/22) History of shoulder surgery L shoulder impingment surgery History of carpal tunnel release of both wrists History of cholecystectomy History of hysterectomy Social History Smoking/Tobacco Use Status: Former Tobacco Use Quit Date: 04/27/20 Smoking risk assessment performed?: Yes Alcohol Intake: never Drug use: Never Substance use type: does not use Housing: house Current gender identity: female Do you feel safe at home: Yes Do you feel safe in your relationship?: Yes
== END 2024-08-18 11:03 | disposition home or self-care (01) ==
PROVIDERS: Emergency Provider Physician Assistant; PCP Family Medicine
DX: J20.9 Acute bronchitis, unspecified (principal); R06.02 Shortness of breath
CPT/HCPCS: 36415; 80053; 83690; 96374; 96375; 99284; 71046; 83735; 84484; 85025; J1100; J1885; J7620

== ENCOUNTER 2024-11-04 20:35 | Emergency (ER) | payer MEDICARE, MEDICAID, SELFPAY ==
[2024-11-04 20:40] VITALS: BP 125/54; PULSE 81; RESP 20; TEMP 36.1; O2SAT 96
--- NOTE | 2024-11-04 20:51 | W.ED.GENAD ---
Discharge Plan Disposition Patient Disposition: Home Condition: Stable Discharge Details Clinical Impression: Sprain of right ankle Primary Care Provider: Pablito Bryant ED Provider: Tim Pinedo Home Meds and New Rx's Prescriptions: Continued alprazolam 0.5 mg tablet 0.5 mg PO TID PRN tramadol 50 mg tablet 50 mg PO Q12H PRN methylphenidate HCl 20 mg tablet 20 mg PO DAILY pantoprazole 40 mg tablet,delayed release (DR/EC) 40 mg PO DAILY aripiprazole 20 mg tablet 1 tab PO DAILY bupropion HCl 150 mg tablet extended release 24 hr 450 mg PO DAILY acetaminophen 500 mg tablet 1,000 mg PO TID PRN No Action albuterol sulfate 90 mcg/actuation HFA aerosol inhaler 2 puff inhalation Q6H PRN (Reason: shortness of breath or wheezing) Qty: 6.7 0RF benzonatate 200 mg capsule 200 mg PO BID-TID PRN (Reason: cough) Qty: 14 0RF Discharge Instructions Instructions: Ankle Sprain ED Additional Instructions: You were seen in the emergency department for the sprain of your right ankle, I placed you in an Sushil wrap and provided crutches as you have been unable to weight-bear without severe pain. You should get better over the course of 2 weeks, if you do not improve please see orthopedics by primary care referral. Please rest, ice, compress and elevate the ankle often. Please use therapeutic dosing of Tylenol (acetamenophen) & Advil (ibuprofen) in an alternating fashion as follows: Take 1000mg of Tylenol every 6 hours without missing doses- that is 4 times per day. Retirement in between the Tylenol dosings, take 400-600mg of Advil also on a 6 hour schedule, that is also 4 times per day. The daily maximum dosing of Tylenol is 4000mg, and the daily maximum dosing of Advil is 2400mg. This is safe to do for weeks. Please note that some common cold medications & prescription pain medications may contain acetamenophen and you need to read OTC drug labels and factor that in to maximum daily dosings. Referrals: [facility] [Provider Group] Pablito Bryant [Primary Care Provider] - Discharge Data Discharge Date/Time-TO BE ENTERED AT DEPARTURE: 11/04/24 21:59 HPI General Date/Time Provider Initiated Documentation: 11/04/24 20:38. HPI Narrative: 54 year-old female presents to ED today by POV/ambulating with a chief complaint of rolled R ankle while walking on the road today. Quality described as pain with weight-bearing, R-foot dominant, no radiation to calf/knee pain, numbness to foot, skin lesion, wound. Severity is described as moderate. Palliating factors include nothing specific. Provoking factors include weight-bearing. Patient not anticoagulated. Related Data Home Medications ?Medication ?Instructions ?Recorded ?Confirmed aripiprazole 20 mg tablet 1 tab PO DAILY 03/03/22 11/04/24 bupropion HCl 150 mg 24 hr tablet, 450 mg PO DAILY 03/03/22 11/04/24 extended release acetaminophen 500 mg tablet 1,000 mg PO TID PRN 11/28/23 11/04/24 alprazolam 0.5 mg tablet 0.5 mg PO TID PRN 06/23/24 11/04/24 methylphenidate HCl 20 mg tablet 20 mg PO DAILY 06/23/24 11/04/24 pantoprazole 40 mg tablet,delayed 40 mg PO DAILY 06/23/24 11/04/24 release tramadol 50 mg tablet 50 mg PO Q12H PRN 06/23/24 11/04/24 albuterol sulfate 90 mcg/actuation 2 puff inhalation Q6H PRN 11/07/24 11/07/24 aerosol inhaler shortness of breath or wheezing #6.7 grams benzonatate 200 mg capsule 200 mg PO BID-TID PRN cough #14 11/07/24 11/07/24 caps Previous Rx's ?Medication ?Instructions ?Recorded albuterol sulfate 90 mcg/actuation 2 puff inhalation Q6H PRN 11/07/24 aerosol inhaler shortness of breath or wheezing #6.7 grams benzonatate 200 mg capsule 200 mg PO BID-TID PRN cough #14 11/07/24 caps Allergies Allergy/AdvReac Type Severity Reaction Status Date / Time No Known Allergies Allergy Verified 11/07/24 10:14 General Stated Complaint: Orthopedic MARLENI: 4 Review of Systems All systems reviewed & are unremarkable except as noted in HPI and below Exam Narrative Exam Narrative: GENERAL APPEARANCE: Well-nourished, non-toxic, awake and alert, atraumatic, no acute distress. SKIN: Warm, pink, dry, intact, without rashes/lesions/ulcerations. HEAD: Normocephalic, atraumatic, normal hair distribution for gender/age. EYES: Normal conjunctiva, no exudates on lids/lashes. ENT: Nares patent, no circumoral cyanosis, no facial swelling NECK: Supple, trachea midline, painless cervical ROM. LUNGS/CHEST: Non-labored respirations, normal A/P diameter, symmetrical expansion, no chest wall deformity HEART (CV/PV): Regular rate, R dorsalis pedis pulse 2+, no peripheral edema, no JVD. ABDOMEN: Soft, non-distended, no guarding. MSK: Normal ROM, no swelling/deformity to bilateral UEs or L LE, moving all extremities without weakness, no cyanosis, spine midline without tenderness, normal curvature, R LE: tenderness without crepitus, mild swelling to lateral malleolus, dorsalis pedis pulse intact, sensation intact, brisk capillary refill, no ecchymosis, no fibular head tenderness NEURO: Mental Status AAOx4 - alert to person, place, time, events No facial droop, no forehead involvement. Motor: No focal weakness - strength 5/5 in bilateral UEs and L LE, proximal and distal, symmetric. Sensory: sensation intact to light touch globally. Gait normal: patient ambulated without ataxia into ED room. PSYCH: euthymic, cooperative, pleasant, appropriate speech Course Vital Signs Vital signs: Vital Signs Temperature 36.1 C L 11/04/24 20:40 Pulse 81 11/04/24 20:40 Respiratory Rate 20 11/04/24 20:40 Blood Pressure 125/54 L 11/04/24 20:40 Pulse Oximetry 96 11/04/24 20:40 Temperature 36.1 C L 11/04/24 20:40 Temperature Source Tympanic 11/04/24 20:40 Pulse 81 11/04/24 20:40 Respiratory Rate 20 11/04/24 20:40 Blood Pressure 125/54 L 11/04/24 20:40 Blood Pressure Position Sitting 11/04/24 20:40 Pulse Oximetry 96 11/04/24 20:40 Oxygen Delivery Method Room Air 11/04/24 20:40 Oxygen Flow Rate 0 11/04/24 20:40 Medical Decision Making This dictation utilizes [id number] dictation software and may contain unedited grammatical errors. 54 year-old female presents to ED today by POV/ambulating with a chief complaint of rolled R ankle while walking on the road today. Quality described as pain with weight-bearing, R-foot dominant, no radiation to calf/knee pain, numbness to foot, skin lesion, wound. Severity is described as moderate. Palliating factors include nothing specific. Provoking factors include weight-bearing. Patients' medical history: Noncontributory. Family and social history: Noncontributory. Pertinent exam findings / vital signs include tenderness diffusely to the right ankle most focal on the lateral malleolus, right dorsalis pedis pulse 2+, range of motion limited due to pain, no right fibular head tenderness Differential / pathologies of concern include fracture, sprain. Diagnostic studies of: - XR R ankle-no acute fracture. Interventions of: - Sushil wrap crutches due to severe pain with weightbearing. ED Course/Assessment/Plan: 54-year-old female rolled her right ankle, has no acute fracture, is having extreme difficulty bearing weight so she was provided crutches as well as an Sushil wrap, recommend RICE therapy and therapeutic dosing Tylenol and ibuprofen, follow-up with orthopedics if pain persist past 2 weeks. Findings not consistent with fracture or neurovascular compromise. Disposition of Sprain of Right Ankle. Patient verbalized understanding of the plan and return to ED criteria and engaged in shared decision making. Medical Records Medical records reviewed: Yes I reviewed the patient's medical records. Imaging Data Radiologic Study: Attestation: I personally reviewed and interpreted this imaging study as follows: Imaging: X-Ray Radiologist's impression: Exam: XR Right Ankle Exam date and time: 11/04/2024 8:56 PM Age: 54 years old Clinical indication: Pain; Ankle; Right TECHNIQUE: Imaging protocol: Radiologic exam of the right ankle. Views: 3 or more views. COMPARISON: MR LOWER JOINT RT WO 04/24/2022 9:30 AM FINDINGS: Bones/joints: Normal. Soft tissues: Normal. IMPRESSION: No acute findings. Dictated and Authenticated by: Alissa Mcduffie MD. Quality:[facility] Health Related Social Needs: Health related social needs details lack of PCP PFSH All Active Problems (Updated 11/04/24 @ 21:23 by DEJUAN Cotter) Sprain of right ankle (Acute) Pneumobilia (Acute) Hoffa's fat pad disease (Acute) No-show for appointment (Acute) Medical History Arthritis Depression Surgical History Status post right partial knee replacement (09/26/22) History of shoulder surgery L shoulder impingment surgery History of carpal tunnel release of both wrists History of cholecystectomy History of hysterectomy Social History Smoking/Tobacco Use Status: Former Tobacco Use Quit Date: 04/27/20 Smoking risk assessment performed?: Yes Alcohol Intake: never Drug use: Never Substance use type: does not use Housing: house Current gender identity: female Do you feel safe at home: Yes Do you feel safe in your relationship?: Yes
--- NOTE | 2024-11-04 21:00 | DI.RAD_ITS ---
Exam(s) XR ANKLE RT COMPLETE EXAM: XR ANKLE RT COMPLETE CLINICAL HISTORY: R ankle pain. TECHNIQUE: 2D digital imaging was performed of the right ankle. Three images were obtained. AP, la teral and oblique views were obtained. COMPARISON: No exams were available for comparison FINDINGS: BONES: No acute fracture is present. No bony destructive lesion is seen. JOINTS: The ankle mortise is normally aligned. SOFT TISSUE: Normal. IMPRESSION: 1. Unremarkable radiographs of the right ankle. 2. The preliminary [facility] report was reviewed. DATA REPOSITORY: RADIATION DOSE DELIVERED:
--- NOTE | 2024-11-04 21:52 | DI.[facility]_ITS ---
PROCEDURE INFORMATION: Exam: XR Right Ankle Exam date and time: 11/04/2024 8:56 PM Age: 54 years old Clinical indication: Pain; Ankle; Right TECHNIQUE: Imaging protocol: Radiologic exam of the right ankle. Views: 3 or more views. COMPARISON: MR LOWER JOINT RT WO 04/24/2022 9:30 AM FINDINGS: Bones/joints: Normal. Soft tissues: Normal. IMPRESSION: No acute findings. Dictated and Authenticated by: Alissa Mcduffie MD. Orderin Khris Dumont MD
--- NOTE | 2024-11-07 10:34 | NUR.NOTE ---
Accessed chart to get the discharge diagnosis for [facility] billing purposes and to print a facesheet. Nursing Note:
--- NOTE | 2024-11-07 10:36 | NUR.NOTE ---
Accessed chart to get the discharge diagnosis for [facility] billing purposes and to print a facesheet. Nursing Note:
== END 2024-11-04 21:59 | disposition home or self-care (01) ==
LOC: ER 21:31
PROVIDERS: Emergency Provider Physician Assistant; PCP Family Medicine
DX: S93.401A Sprain of unspecified ligament of right ankle, initial encounter (principal); Z87.891 Personal history of nicotine dependence; X50.1XXA Overexertion from prolonged static or awkward postures, initial encounter; Y93.01 Activity, walking, marching and hiking; Y92.414 Local residential or business street as the place of occurrence of the external cause
CPT/HCPCS: 99283; 73610

== ENCOUNTER 2024-11-30 18:02 | Emergency (ER) | payer MEDICARE, MEDICAID, SELFPAY ==
[2024-11-30] VITALS (13 sets, daily range): BP systolic 95–143; BP diastolic 49–106; PULSE 63–83; RESP 14–24; O2SAT 93–99
--- NOTE | 2024-11-30 18:00 | RT.EKG_ITS ---
APPROVED REPORT Exam: Resting ECG Reason for Exam: chest pain Patient Location: E HR:79 bpm ECG Measurements Heart Rate 79 AXIS NH 128 P 43 QRSd 88 QRS 50 QT 356 T 44 QTc 407 Conclusion Sinus rhythm 79 normal axis no stemi
[2024-11-30] MEDS: Aspirin 81 MG CHEW 324 MG CH (18:30)
[2024-11-30 18:44] LABS: Abs Immature Grans 0.02 10^3/uL (0.0-0.06); Absolute Basophil Count 0.03 10^3/uL (0.0-0.2); Absolute Eosinophil Count 0.34 10^3/uL (0.0-0.7); Absolute Lymphocyte Count 4.08 10^3/uL (1.2-3.4); Absolute Monocyte Count 0.66 10^3/uL (0.1-0.8); Absolute Neutrophil Count 6.46 10^3/uL (1.2-6.7); Basophils % 0.3 %; Eosinophils % 2.9 %; HCT 42.8 % (36.0-46.0); HGB 14.3 g/dL (11.2-15.7); Immature Grans % 0.2 %; Lymphocytes % 35.2 %; MCHC 33.4 % (32.0-36.0); MCV 84 fL (80-95); Monocytes % 5.7 %; Neutrophils % 55.7 %; RBC 5.11 10^6/uL (3.93-5.22); RDW 13.3 % (11.7-14.6); RDW-SD 40.7 fL; WBC 11.59 10^3/uL (4.4-10.8)
[2024-11-30 18:59] LABS: INR 0.9 (0.9-1.1); Prothrombin Time 9.4 sec (9.1-11.1)
[2024-11-30 19:01] LABS: Diff Comment PLT Morph Reviewed; RBC Morphology Normal
[2024-11-30] MEDS: Famotidine 20 MG/2 ML VIAL 40 MG IVP (19:05)
[2024-11-30 19:06] LABS: ALT 23 U/L (14-59); AST 22 U/L (15-37); Albumin 3.9 g/dL (3.4-5.0); Alkaline Phosphatase 164 U/L (46-116); Anion Gap 8.7 mmol/L (3-11); BUN 17 mg/dL (7-18); Bilirubin, Total 0.1 mg/dL (0.2-1.0); CO2 28.3 mmol/L (21.0-32.0); Chloride 104 mmol/L (98-107); Estimated GFR 67.78 (mL/min/1.73m2); Glucose 103 mg/dL (74-106); Lipase 33 U/L (<78); NT-proBNP 58 pg/mL (<300); Potassium 3.9 mmol/L (3.5-5.1); Sodium 141 mmol/L (136-145); Total Protein 7.6 g/dL (6.4-8.2)
[2024-11-30 19:08] LABS: Troponin I < 4 ng/L (<or=51)
[2024-11-30] MEDS: nitroGLYcerin 0.4 MG TAB (19:31)
--- NOTE | 2024-11-30 21:50 | ED.GENADUL_ITS ---
Discharge Plan Disposition Patient Disposition: Home Condition: Stable Discharge Details Clinical Impression: Esophageal spasm Primary Care Provider: Pablito Bryant ED Provider: Cecilia Ravi Home Meds and New Rx's Prescriptions: New nitroglycerin 0.4 mg tablet, sublingual 0.4 mg sublingual Q5M PRN (Reason: spasms) Qty: 10 0RF Rx Instructions: do not exceed 3 doses per episode sucralfate [Carafate] 1 gram tablet 1 g PO QACHS Qty: 30 0RF Rx Instructions: dissolve tab in water and drink No Action albuterol sulfate 90 mcg/actuation HFA aerosol inhaler 2 puff inhalation Q6H PRN (Reason: shortness of breath or wheezing) Qty: 6.7 0RF benzonatate 200 mg capsule 200 mg PO BID-TID PRN (Reason: cough) Qty: 14 0RF alprazolam 0.5 mg tablet 0.5 mg PO TID PRN tramadol 50 mg tablet 50 mg PO Q12H PRN methylphenidate HCl 20 mg tablet 20 mg PO DAILY pantoprazole 40 mg tablet,delayed release (DR/EC) 40 mg PO DAILY aripiprazole 20 mg tablet 1 tab PO DAILY bupropion HCl 150 mg tablet extended release 24 hr 450 mg PO DAILY acetaminophen 500 mg tablet 1,000 mg PO TID PRN Discharge Instructions Instructions: Esophageal Manometry Additional Instructions: Your symptoms seem most consistent with an esophageal spasm. Please keep your appointment to follow-up with GI. Your lab work and EKG are reassuring that this is not a problem with your heart. You have been prescribed Carafate start when you are having more severe acid reflux. Please continue your pantoprazole daily. You have been prescribed a few doses of nitroglycerin to try. This seemed to give you relief in the emergency department. You can take 1 dose every 5 minutes, not to exceed 3 doses, when you have this severe spasm pain like you had tonight. If your symptoms have not resolved after 3 doses, please return to the emergency department. Discharge Data Discharge Date/Time-TO BE ENTERED AT DEPARTURE: 11/30/24 20:25 HPI General Date/Time Provider Initiated Documentation: 11/30/24 18:15 . Limitations to Documentation: no limitations . Information obtained by: patient . HPI Narrative: 54-year-old female with past medical history of cholecystectomy presents for evaluation of epigastric pain and squeezing sensation. 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 She reports that she has been having severe heartburn all day. She has been compliant with her pantoprazole. She denies any dietary changes. She reports that her symptoms of the pain has been present persistent for the last 2 hours. No exacerbating relieving factors. Hurts worse with trying to take a deep breath, but does not feel short of breath. Related Data Home Medications ?Medication ?Instructions ?Recorded ?Confirmed aripiprazole 20 mg tablet 1 tab PO DAILY 03/03/22 11/30/24 bupropion HCl 150 mg 24 hr tablet, 450 mg PO DAILY 03/03/22 11/30/24 extended release acetaminophen 500 mg tablet 1,000 mg PO TID PRN 11/28/23 11/30/24 alprazolam 0.5 mg tablet 0.5 mg PO TID PRN 06/23/24 11/30/24 methylphenidate HCl 20 mg tablet 20 mg PO DAILY 06/23/24 11/30/24 pantoprazole 40 mg tablet,delayed 40 mg PO DAILY 06/23/24 11/30/24 release tramadol 50 mg tablet 50 mg PO Q12H PRN 06/23/24 11/30/24 albuterol sulfate 90 mcg/actuation 2 puff inhalation Q6H PRN 11/07/24 11/30/24 aerosol inhaler shortness of breath or wheezing #6.7 grams benzonatate 200 mg capsule 200 mg PO BID-TID PRN cough #14 11/07/24 11/30/24 caps nitroglycerin 0.4 mg sublingual 0.4 mg sublingual Q5M PRN spasms 11/30/24 tablet #10 tabs sucralfate 1 gram tablet (Carafate) 1 g PO QACHS #30 tabs 11/30/24 Previous Rx's ?Medication ?Instructions ?Recorded albuterol sulfate 90 mcg/actuation 2 puff inhalation Q6H PRN 11/07/24 aerosol inhaler shortness of breath or wheezing #6.7 grams benzonatate 200 mg capsule 200 mg PO BID-TID PRN cough #14 11/07/24 caps nitroglycerin 0.4 mg sublingual 0.4 mg sublingual Q5M PRN spasms 11/30/24 tablet #10 tabs sucralfate 1 gram tablet (Carafate) 1 g PO QACHS #30 tabs 11/30/24 Allergies Allergy/AdvReac Type Severity Reaction Status Date / Time No Known Allergies Allergy Verified 11/07/24 10:14 General Stated Complaint: Chest Pain MARLENI: 3 Exam Narrative Exam Narrative: Review of Systems: All systems reviewed & are unremarkable except as noted in HPI and below Well-developed, appears uncomfortable NCAT RRR, no chest wall tenderness Unlabored respiratory effort, clear bilaterally Nondistended abdomen , soft nontender Course Vital Signs Vital signs: Vital Signs Pulse 83 11/30/24 18:11 Respiratory Rate 20 11/30/24 18:11 Blood Pressure 143/87 H 11/30/24 18:11 Pulse Oximetry 93 11/30/24 18:11 Pulse 68 11/30/24 20:22 Pulse 67 11/30/24 20:10 Respiratory Rate 24 11/30/24 20:22 Respiratory Effort Normal, Non-Labored 11/30/24 20:16 Respiratory Depth Normal 11/30/24 20:16 Respiratory Pattern Normal 11/30/24 20:16 Blood Pressure 116/60 11/30/24 20:22 Blood Pressure Mean 73 11/30/24 20:01 Pulse Oximetry 99 11/30/24 20:22 Lab/Test Results Lab/Test Results: Laboratory Tests Range/Units 11/30/24 11/30/24 11/30/24 18:27 19:16 21:16 WBC (4.4-10.8) 10^3/uL 11.59 H RBC (3.93-5.22) 10^6/uL 5.11 Hgb (11.2-15.7) g/dL 14.3 Hct (36.0-46.0) % 42.8 MCV (80-95) fL 84 MCH (27.0-33.0) pg 28.0 MCHC (32.0-36.0) % 33.4 RDW (11.7-14.6) % 13.3 Plt Count (130-400) 10^3/uL MPV (8.0-11.0) fL Immature Gran % % 0.2 Neutrophils % % 55.7 Lymphocytes % % 35.2 Monocytes % % 5.7 Eosinophils % % 2.9 Basophils % % 0.3 Nucleated RBC % (0.0-0.3) % 0.0 Absolute Neutrophils (1.2-6.7) 10^3/uL 6.46 Absolute Lymphocytes (1.2-3.4) 10^3/uL 4.08 H Absolute Monocytes (0.1-0.8) 10^3/uL 0.66 Absolute Eosinophils (0.0-0.7) 10^3/uL 0.34 Absolute Basophils (0.0-0.2) 10^3/uL 0.03 RBC Morphology Normal PT (9.1-11.1) sec 9.4 INR (0.9-1.1) 0.9 Sodium (136-145) mmol/L 141 Potassium (3.5-5.1) mmol/L 3.9 Chloride (98-107) mmol/L 104 Carbon Dioxide (21.0-32.0) mmol/L 28.3 Anion Gap (3-11) mmol/L 8.7 BUN (7-18) mg/dL 17 Creatinine (0.55-1.02) mg/dL 1.0 Est GFR (CKD-EPI 2020) (mL/min/1.73m2) 67.78 Glucose (74-106) mg/dL 103 Calcium (8.5-10.1) mg/dL 10.0 Total Bilirubin (0.2-1.0) mg/dL 0.1 L AST (15-37) U/L 22 ALT (14-59) U/L 23 Alkaline Phosphatase (46-116) U/L 164 H Troponin I (<or=51) ng/L < 4 Cancelled Cancelled NT-Pro-B Natriuret Pep (<300) pg/mL 58 Total Protein (6.4-8.2) g/dL 7.6 Albumin (3.4-5.0) g/dL 3.9 Lipase (<78) U/L 33 Medical Decision Making Emergent evaluation of chest discomfort. Initial differential includes esophageal spasm, ACS, pancreatitis. Patient reports that she has had the s ymptoms several times has had a prior negative cardiac workup including stress testing. She had a cholecystectomy and was found to have pneumobilia, but this did not seem to be related to that. She does have a known history of reflux and has been compliant with medicine though her symptoms of that have been worsening today. EKG reviewed and independently interpreted: Sinus 79 normal axis no STEMI. Lab work was obtained. Slightly elevated white blood cell count 11.5 though this seems to be nonspecific. Normal INR. Normal electrolytes. Troponin is undetectable. Patient was having ongoing symptoms not relieved by an IV PPI. Tried an oral nitroglycerin and this seemed to completely resolve her symptoms. This seems to support the diagnosis of an esophageal spasm. Discussed doing a calcium channel laure daily versus as needed nitro and the patient wanted to try the as needed nitro. She has an EGD follow-up with GI scheduled. She understands how and when to take the nitroglycerin. Controlling her reflux symptoms were also discussed. Recommend close follow-up with PCP as needed. Quality:SDOH Health Related Social Needs: Health related social needs details lack of PCP PFSH All Active Problems (Updated 11/30/24 @ 20:06 by Cecilia Ravi MD) Esophageal spasm (Acute) Sprain of right ankle (Acute) Pneumobilia (Acute) Hoffa's fat pad disease (Acute) No-show for appointment (Acute) Medical History Arthritis Depression Surgical History Status post right partial knee replacement (09/26/22) History of shoulder surgery L shoulder impingment surgery History of carpal tunnel release of both wrists History of cholecystectomy History of hysterectomy Social History Smoking/Tobacco Use Status: Former Tobacco Use Quit Date: 04/27/20 Smoking risk assessment performed?: Yes Alcohol Intake: never Drug use: Never Substance use type: does not use Housing: house Current gender identity: female Do you feel safe at home: Yes Do you feel safe in your relationship?: Yes
== END 2024-11-30 20:25 | disposition home or self-care (01) ==
PROVIDERS: Emergency Provider Emergency Medicine; PCP Family Medicine
DX: K22.4 Dyskinesia of esophagus (principal)
CPT/HCPCS: 36415; 80053; 83690; 93005; 96374; 99284; 83880; 84484; 85025; 85610; 93010; 99283